=== PATIENT | female | born 1975 | race Caucasian/White ===

== ENCOUNTER 2018-10-20 08:40 | Day surgery (SDC) | payer MEDICARE ==
[2012-10-20 10:16] VITALS: BP 134/87
[2018-10-20] MEDS ORDERED: Depo-Medrol 40 MG/ML IM ONE (08:41)
[2018-10-20] MEDS ORDERED: Marcaine 0.5% SDV 10 ML IJ ONE (08:41)
[2018-10-20] MEDS ORDERED: Xylocaine 1% Vial 30 ML PF IJ ONE (08:41)
[2018-10-20] MEDS ORDERED: DIPRIVAN 200 MG/20 ML IV ONE (08:41)
--- NOTE | 2018-10-20 12:17 | XRAY ---
16 seconds fluoroscopy time in surgery for bilateral greater trochanter injections.
--- NOTE | 2018-10-20 12:27 | XRAY ---
Indication: Bilateral greater trochanter injection. Intraoperative fluoroscopy was provided for approximately 16 seconds. 2 digital spot images submitted for interpretation demonstrates needle tip projecting just lateral to the left and right greater trochanters. Small amount of contrast injected for needle tip placement. Correlate with intraoperative findings/report.
[2018-10-20] MEDS ORDERED: Lactated Ringers 1,000 ML IV ONE (14:45)
== END 2018-10-20 11:40 | disposition home or self-care (01) ==
LOC: SDC-PAIN 08:40
PROVIDERS: ATTEND Psychiatry & Neurology Pain Medicine
DX: M70.61 Trochanteric bursitis, right hip (principal)
CPT/HCPCS: 20610; 73521; 76000; 77002; 82962; J1030; J2001; J2704; Q9966

== ENCOUNTER 2020-04-15 23:08 | Emergency (ER) | payer MEDICARE ==
[2020-04-15] MEDS ORDERED: MORPHINE SULFATE 2 MG INJ IV ONE (23:50)
[2020-04-15] MEDS ORDERED: Zofran 4 MG/2 ML VIAL IV ONE (23:50)
[2020-04-15] MEDS ORDERED: Sodium Chloride 0.9% 1000 ML 1,000 ML IV STA (23:50)
[2020-04-15] MEDS ORDERED: Sodium Chloride 0.9% 1000 ML 1,000 ML ONE (23:56)
[2020-04-15] MEDS ORDERED: Zofran 4 MG/2 ML VIAL ONE (23:56)
[2020-04-15] MEDS ORDERED: MORPHINE SULFATE 2 MG INJ ONE (23:56)
[2020-04-16 00:01] LABS: Absolute Neutrophil Ct (ANC) 5.86 (1.4-6.9); BASOPHIL % 0.5 % (0.0-0.4); Basophil (Absolute #) 0.05 (0-0.4); Eosinophil % 1.6 % (0.00-5.0); Eosinophil (Absolute #) 0.16 (0-0.5); Hematocrit 43.6 % (35-47); Lymphocyte (Absolute #) 3.02 (1.0-4.6); Lymphocytes % 30.9 % (24.0-44.0); Mean Cell Volume 91.8 fl (78-100); Mean Corpuscular Hemoglobin 31.6 pg (26-32); Mean Corpuscular Hgb Concent. 34.4 g/dl (32-36); Mean Platelet Volume 9.8 fl (7.5-11.0); Monocyte (Absolute #) 0.69 (0.0-1.3); Monocytes % 7.1 % (0.0-12.0); Neutrophil % 59.9 % (36.0-66.0); Platelet Count 312 K/mm3 (150-450); Red Blood Count 4.75 M/mm3 (4.1-5.4); Red Cell Distribution Width 12.7 % (11.5-14.0); White Blood Count 9.8 K/mm3 (4.0-10.5)
[2020-04-16 00:15] VITALS: O2SAT 97
[2020-04-16 00:17] LABS: ALBUMIN 4.3 g/dL (3.5-5.0); ALKALINE PHOSPHATASE 136 U/L (38-126); ANION GAP 14.2 MEQ/L (5-15); BLOOD UREA NITROGEN 11 mg/dL (7-17); CHLORIDE 101 mmol/L (98-107); Carbon Dioxide 26 mmol/L (22-30); Creatinine 1 0.55 mg/dL (0.52-1.04); Glucose 258 mg/dL (74-106); LIPASE 73 U/L (23-300); Potassium 4.1 mmol/L (3.5-5.1); SGOT/AST 19 U/L (14-36); SGPT/ALT 16 U/L (0-35); SODIUM 137 mmol/L (137-145); Total Protein 7.4 g/dL (6.3-8.2)
[2020-04-16 00:27] LABS: Appearance CLEAR (CLEAR); Bilirubin NEGATIVE (NEGATIVE); Blood NEGATIVE Ery/ul (0-5); Glucose >=500 mg/dL (NEGATIVE); Ketones TRACE (NEGATIVE); Leukocyte Esterase NEGATIVE (NEGATIVE); Mucus SLIGHT /HPF (NEGATIVE); Nitrite NEGATIVE (NEGATIVE); Protein,Urine Dip NEGATIVE (Negative); Specific Gravity 1.031 (1.005-1.025); Urobilinogen NEGATIVE mg/dL (0-1)
[2020-04-16] MEDS ORDERED: MORPHINE SULFATE 4 MG INJ IV ONE (01:28)
[2020-04-16] MEDS ORDERED: MORPHINE SULFATE 4 MG INJ ONE (01:34)
--- NOTE | 2020-04-16 01:42 | ERPHSYRPT ---
- History of Present Illness Time Seen by Provider: 04/15/20 23:45 Historian: patient Exam Limitations: no limitations Patient Subjective Stated Complaint: pt states that she has had severe abdomen pain for the past 5 days, pt states that she has a long stomach history, pt states that she is unable to have scope due to recent stents placed last year, pt states that the pain has increased each day, pt states that she took pain medication at 1800 tonight Triage Nursing Assessment: pt ambulated into the er, pt is axo x4, pt is hold left side of abdomen, c/o 8/10 pain to ULQ that radiated to left back, c/o nausea, hypoactive bowel sound, abd is soft and tender to ULQ pt is diaphoretic , vitals wnl Physician History: Patient is a 45-year-old female with chronic abdominal pain presents to our ED with left-sided upper abdominal pain that has been ongoing for approximately 5 days. Pain described as an ache that is well localized. Pain worse with palpation pain improved with rest. Pain rated 8 out of 10. No trauma. No nausea or vomiting. No diarrhea. Patient is a smoker. Symptoms are moderate in intensity. Patient voices no other complaints at this time. Timing/Duration: day(s) (5 days ago) Activities at Onset: none Quality: aching Abdominal Pain Onset Location: LUQ Pain Radiation: no radiation Severity of Pain-Max: moderate Severity of Pain-Current: mild Modifying Factors: Improves With: palpation. Worsens With: breathing, eating, exercise, vomiting, position, walking Associated Symptoms: No back, No chest pain, No diaphoresis, No diarrhea, No fatigue, No headache, No heartburn, No neck pain, No rash, No shortness of breath, No syncope, No testicular pain, No vomiting, No weakness Previous symptoms: no prior history Allergies/Adverse Reactions: adhesive Allergy (Severe, Verified 05/13/16 08:16) states adhesive from medication patches clonazepam [From Klonopin] Allergy (Severe, Verified 05/13/16 08:16) tizanidine HCl [From Zanaflex] Adverse Reaction (Verified 05/13/16 08:16) "weird sensation in legs" restless legs Home Medications: Aspirin/Calcium Carbonate/Mag [Aspirin Buffered 325 mg Tab] 325 mg PO DAILY [History] Gabapentin [Neurontin] 800 mg PO TID 07/04/15 [History] Insulin Detemir [Levemir] 100 units SQ HS 07/04/15 [History] Insulin Lispro [Humalog] 30 units SQ AC 07/04/15 [History] Mag Hydrox/Aluminum Hyd/Simeth [Liquid Antacid Suspension] 30 ml PO HS 07/04/15 [History] Nitroglycerin 0.4 mg Tablet [Nitrostat 0.4 MG Tablet] 0.4 mg SL Q5MIN PRN MR X 3 PRN 07/04/15 [History] Omeprazole 40 mg PO DAILY 07/04/15 [History] Ondansetron [Zofran Odt] 4 mg SL Q4HPRN PRN 07/04/15 [History] Rosuvastatin Calcium [Crestor] 40 mg PO HS 07/04/15 [History] dilTIAZem HCL [Diltiazem HCl] 120 mg PO DAILY 07/04/15 [History] Oxycodone HCl/Acetaminophen [Percocet 10-325 mg Tablet] 1 each PO Q6HPRN PRN [History] Carboxymethylcellulose Sodium [Lubricant Eye Drops] 1 drop IO DAILY 05/09/16 [ History] Baclofen 10 mg PO TID 11/25/16 [History] Phenytoin Sod Extended 100 mg* [Dilantin 100 MG] 2 cap PO HS 03/02/17 [ History] Dulaglutide [Trulicity] 0.75 mg SQ WEEKLY 07/09/17 [History] Insulin Degludec [Tresiba Flextouch U-200] 90 unit SQ DAILY 07/09/17 [History] Levothyroxine Sodium 125 mcg PO DAILY 07/09/17 [History] Liraglutide [Victoza 2-Sergo] 1.2 mg SQ DAILY 07/09/17 [History] Amitriptyline HCl [Elavil] 75 mg PO HS 01/18/18 [History] metHOTREXate sodium [Trexall] 10 mg PO WEEKLY 01/18/18 [History] Hx Tetanus, Diphtheria Vaccination/Date Given: Yes (unsure) Hx Influenza Vaccination/Date Given: Yes Hx Pneumococcal Vaccination/Date Given: Yes Travel Risk - International Travel Have you traveled outside of the country in past 3 weeks: No Have you or anyone close to you been diagnosed with or: No Do your reside in a community with a known COVID-19 case?: Yes If Yes where:: [place] - Coronavirus Screening Has patient experienced Coronavirus symptoms: No - Review of Systems Constitutional: No Symptoms, No Fever, No Chills Eyes: No Symptoms Ears, Nose, & Throat: No Symptoms Respiratory: No Symptoms, No Cough, No Dyspnea Cardiac: No Symptoms, No Chest Pain, No Edema, No Syncope Abdominal/Gastrointestinal: No Symptoms, No Abdominal Pain, No Nausea, No Vomiting, No Diarrhea Genitourinary Symptoms: No Symptoms, No Dysuria Musculoskeletal: No Symptoms, No Back Pain, No Neck Pain Skin: No Symptoms, No Rash Neurological: No Symptoms, No Dizziness, No Focal Weakness, No Sensory Changes Psychological: No Symptoms Endocrine: No Symptoms Hematologic/Lymphatic: No Symptoms Immunological/Allergic: No Symptoms All Other Systems: Reviewed and Negative - Past Medical History Pertinent Past Medical History: Yes Neurological History: Peripheral Neuropathy ENT History: No Pertinent History Cardiac History: Angina, Coronary Artery Disease, High Cholesterol, Hypertension , Myocardial Infarction ([place]) Respiratory History: Bronchitis Endocrine Medical History: Diabetes Type II, Hypothyroidism Musculoskeletal History: Degenerative Disk Disease, Fibromyalgia GI Medical History: GERD, Hernia, Irritable Bowel, Polyps, Other History: No Pertinent History Psycho-Social History: Anxiety, Depression Female Reproductive Disorders: Other Other Medical History: LUPUS PCOS Montejo's esophagus, kyra - Past Surgical History Past Surgical History: Yes Neuro Surgical History: Other Cardiac: Cardiac Catheterization, Cardiac Stent Respiratory: No Pertinent History Gastrointestinal: Cholecystectomy Genitourinary: No Pertinent History Musculoskeletal: Other Female Surgical History: Section, Hysterectomy, Tubal Ligation, Other Other Surgical History: disc fusion c6-c7. left knee arthroscopy. lymph node biopsy. polyps removed from colon. +HPV. lumbar laminectomy. kyra dx - Social History Smoking Status: Current every day smoker How long have you smoked: 23yrs Exposure to second hand smoke: Yes Drug Use: none Patient Lives Alone: No - Female History Hx Now: No - Nursing Vital Signs Nursing Vital Signs: Initial Vital Signs Temperature 97.8 F 04/15/20 23:42 Pulse Rate 101 H 04/15/20 23:42 Respiratory Rate 22 04/15/20 23:42 Blood Pressure 124/91 04/15/20 23:42 O2 Sat by Pulse Oximetry 98 04/15/20 23:42 Pain Scale Pain Intensity 3 - Physical Exam General Appearance: no apparent distress, alert Eye Exam: PERRL/EOMI, eyes nml inspection Ears, Nose, Throat Exam: normal ENT inspection, pharynx normal, moist mucous membranes Neck Exam: normal inspection, non-tender, supple, full range of motion Respiratory Exam: normal breath sounds, lungs clear, No respiratory distress Cardiovascular Exam: regular rate/rhythm, normal heart sounds Gastrointestinal/Abdomen Exam: soft, tenderness, other (Mild tenderness to palpation left upper quadrant. Overlying soft tissue intact.), No mass Back Exam: normal inspection, normal range of motion, No CVA tenderness, No vertebral tenderness Extremity Exam: normal inspection, normal range of motion, pelvis stable Neurologic Exam: alert, oriented x 3, cooperative, normal mood/affect, nml cerebellar function, sensation nml, No motor deficits Skin Exam: normal color, warm, dry SpO2 Interpretation: normal SpO2: 97 O2 Delivery: Room Air - Course Nursing assessment & vital signs reviewed: Yes EKG Interpreted by Me: RATE (85), Sinus Rhythm, NORMAL AXIS, NORMAL INTERVALS - CT Exams Abdomen/Pelvis CT Interpretation: Tele-radiologist Report (Reveals Devi's lobe, atheromatous changes involving the wall of the abdominal aorta and right iliac arteries. There is normal. Adrenals appear normal. No hydronephrosis or nephrolithiasis. Food in stomach. No abnormal bowel wall thickening.) Ordered Tests: Active Orders 24 hr Category Date Time Status EKG-ER Only STAT Care 04/16/20 01:32 Active IV Insertion STAT Care 04/15/20 23:50 Active Isolation, Initiate & Maintain Q4H Care 04/16/20 00:12 Active ABDOMEN AND PELVIS W CONTRAST [CT] Stat Exams 04/16/20 12:15 Taken CBC W DIFF Stat Lab 04/15/20 23:45 Completed CMP Stat Lab 04/15/20 23:45 Completed HCG,QUALITATIVE URINE Stat Lab 04/16/20 00:01 Completed LIPASE Stat Lab 04/15/20 23:45 Completed TROPONIN Q3H Lab 04/16/20 01:45 Ordered TROPONIN Q3H Lab 04/16/20 04:45 Ordered TROPONIN Q3H Lab 04/16/20 07:45 Ordered TROPONIN Q3H Lab 04/16/20 10:45 Ordered TROPONIN Q3H Lab 04/16/20 13:45 Ordered UA W/RFX UR CULTURE Stat Lab 04/16/20 00:01 Completed Medication Summary Discontinued Medications Generic Name Dose Route Start Last Admin Trade Name Matheus PRN Reason Stop Dose Admin Sodium Chloride 1,000 mls @ 999 mls/hr 04/15/20 23:50 04/16/20 01:12 Sodium Chloride 0.9% 1000 Ml IV 04/16/20 00:50 Infused .Q1H1M STA Infusion Sodium Chloride Confirm 04/15/20 23:56 Sodium Chloride 0.9% 1000 Ml Administered 04/15/20 23:57 Dose 1,000 mls @ ud .ROUTE .STK-MED ONE Morphine Sulfate 2 mg 04/15/20 23:50 04/16/20 00:05 Morphine Sulfate 2 Mg Inj IV 04/15/20 23:51 2 mg STAT ONE Administration Morphine Sulfate Confirm 04/15/20 23:56 Morphine Sulfate 2 Mg Inj Administered 04/15/20 23:57 Dose 2 mg .ROUTE .STK-MED ONE Morphine Sulfate 4 mg 04/16/20 01:28 04/16/20 01:35 Morphine Sulfate 4 Mg Inj IV 04/16/20 01:29 4 mg STAT ONE Administration Morphine Sulfate Confirm 04/16/20 01:34 Morphine Sulfate 4 Mg Inj Administered 04/16/20 01:35 Dose 4 mg .ROUTE .STK-MED ONE Ondansetron HCl 4 mg 04/15/20 23:50 04/16/20 00:05 Zofran 4 Mg/2 Ml Vial IV 04/15/20 23:51 4 mg STAT ONE Administration Ondansetron HCl Confirm 04/15/20 23:56 Zofran 4 Mg/2 Ml Vial Administered 04/15/20 23:57 Dose 4 mg .ROUTE .STK-MED ONE Lab/Rad Data: Laboratory Result Diagrams 04/15/20 23:45 04/15/20 23:45 Laboratory Results 04/16/20 04/16/20 04/16/20 Range/Units 01:45 00:01 00:01 WBC (4.0-10.5) K/mm3 RBC (4.1-5.4) M/mm3 Hgb (12.0-16.0) gm/dl Hct (35-47) % MCV (78-100) fl MCH (26-32) pg MCHC (32-36) g/dl RDW (11.5-14.0) % Plt Count (150-450) K/mm3 MPV (7.5-11.0) fl Gran % (36.0-66.0) % Eos # (Auto) (0-0.5) Absolute Lymphs (auto) (1.0-4.6) Absolute Monos (auto) (0.0-1.3) Lymphocytes % (24.0-44.0) % Monocytes % (0.0-12.0) % Eosinophils % (0.00-5.0) % Basophils % (0.0-0.4) % Absolute Granulocytes (1.4-6.9) Basophils # (0-0.4) Sodium (137-145) mmol/L Potassium (3.5-5.1) mmol/L Chloride (98-107) mmol/L Carbon Dioxide (22-30) mmol/L Anion Gap (5-15) MEQ/L BUN (7-17) mg/dL Creatinine (0.52-1.04) mg/dL Estimated GFR ML/MIN Glucose (74-106) mg/dL Calcium (8.4-10.2) mg/dL Total Bilirubin (0.2-1.3) mg/dL AST (14-36) U/L ALT (0-35) U/L Alkaline Phosphatase (38-126) U/L Troponin I < 0.012 (0.000-0.034) ng/mL Serum Total Protein (6.3-8.2) g/dL Albumin (3.5-5.0) g/dL Lipase (23-300) U/L Urine Color YELLOW (YELLOW) Urine Appearance CLEAR (CLEAR) Urine pH 6.0 (5-6) Ur Specific Thurman 1.031 (1.005-1.025) Urine Protein NEGATIVE (Negative) Urine Ketones TRACE (NEGATIVE) Urine Blood NEGATIVE (0-5) Jeronimo/ul Urine Nitrite NEGATIVE (NEGATIVE) Urine Bilirubin NEGATIVE (NEGATIVE) Urine Urobilinogen NEGATIVE (0-1) mg/dL Ur Leukocyte Esterase NEGATIVE (NEGATIVE) Urine WBC (Auto) 3-5 (0-5) /HPF Urine RBC (Auto) NONE (0-2) /HPF U Epithel Cells (Auto) NONE (FEW) /HPF Urine Bacteria (Auto) NONE (NEGATIVE) /HPF Urine Mucus (Auto) SLIGHT (NEGATIVE) /HPF Urine Culture Reflexed NO (NO) Urine Glucose >=500 (NEGATIVE) mg/dL Urine HCG, Qual NEGATIVE (Negative) 04/15/20 04/15/20 Range/Units 23:45 23:45 WBC 9.8 (4.0-10.5) K/mm3 RBC 4.75 (4.1-5.4) M/mm3 Hgb 15.0 (12.0-16.0) gm/dl Hct 43.6 (35-47) % MCV 91.8 (78-100) fl MCH 31.6 (26-32) pg MCHC 34.4 (32-36) g/dl RDW 12.7 (11.5-14.0) % Plt Count 312 (150-450) K/mm3 MPV 9.8 (7.5-11.0) fl Gran % 59.9 (36.0-66.0) % Eos # (Auto) 0.16 (0-0.5) Absolute Lymphs (auto) 3.02 (1.0-4.6) Absolute Monos (auto) 0.69 (0.0-1.3) Lymphocytes % 30.9 (24.0-44.0) % Monocytes % 7.1 (0.0-12.0) % Eosinophils % 1.6 (0.00-5.0) % Basophils % 0.5 (0.0-0.4) % Absolute Granulocytes 5.86 (1.4-6.9) Basophils # 0.05 (0-0.4) Sodium 137 (137-145) mmol/L Potassium 4.1 (3.5-5.1) mmol/L Chloride 101 (98-107) mmol/L Carbon Dioxide 26 (22-30) mmol/L Anion Gap 14.2 (5-15) MEQ/L BUN 11 (7-17) mg/dL Creatinine 0.55 (0.52-1.04) mg/dL Estimated GFR > 60.0 ML/MIN Glucose 258 H (74-106) mg/dL Calcium 10.0 (8.4-10.2) mg/dL Total Bilirubin 0.20 (0.2-1.3) mg/dL AST 19 (14-36) U/L ALT 16 (0-35) U/L Alkaline Phosphatase 136 H (38-126) U/L Troponin I (0.000-0.034) ng/mL Serum Total Protein 7.4 (6.3-8.2) g/dL Albumin 4.3 (3.5-5.0) g/dL Lipase 73 (23-300) U/L Urine Color (YELLOW) Urine Appearance (CLEAR) Urine pH (5-6) Ur Specific Thurman (1.005-1.025) Urine Protein (Negative) Urine Ketones (NEGATIVE) Urine Blood (0-5) Jeronimo/ul Urine Nitrite (NEGATIVE) Urine Bilirubin (NEGATIVE) Urine Urobilinogen (0-1) mg/dL Ur Leukocyte Esterase (NEGATIVE) Urine WBC (Auto) (0-5) /HPF Urine RBC (Auto) (0-2) /HPF U Epithel Cells (Auto) (FEW) /HPF Urine Bacteria (Auto) (NEGATIVE) /HPF Urine Mucus (Auto) (NEGATIVE) /HPF Urine Culture Reflexed (NO) Urine Glucose (NEGATIVE) mg/dL Urine HCG, Qual (Negative) - Progress Progress: improved Progress Note: 04/16/20 02:22 Patient reassessed. She feels much better. Pain significantly improved. Work- up essentially negative. Troponin negative. EKG negative. Patient will follow -up with her GI doctor within 48 hours for evaluation. Counseled pt/family regarding: lab results, diagnosis, need for follow-up, rad results, smoking cessation - Departure Departure Disposition: Home Clinical Impression: Abdominal pain, Atheroma, Hyperglycemia, Glucosuria, Elevated alkaline phosphatase level Condition: Stable Critical Care Time: No Referrals: SRIDEVI HART [Primary Care Provider] - Additional Instructions: Discharge/Care Plan HATTIE BOWLING was seen on 04/16/20 in the Emergency Room. The patient was counseled regarding Diagnosis,Lab results, Imaging studies, need for follow up and when to return to the Emergency Room. Prescriptions given: Discharge Note I have spoken with the patient and/or caregivers. I have explained the patient' s condition, diagnosis and treatment plan based on the information available to me at this time. I have answered the patient's and/or caregiver's questions and addressed any concerns. The patient and/or caregivers have as good understanding of the patient's diagnosis, condition and treatment plan as can be expected at this point. The vital signs have been stable. The patient's condition is stable and appropriate for discharge from the emergency department. The patient will pursue further outpatient evaluation with the primary care physician or other designated or consulting physician as outlined in the discharge instructions. The patient and/or caregivers are agreeable to this plan of care and follow-up instructions have been explained in detail. The patient and/or caregivers have received these instruction. The patient/and or caregivers are aware that any significant change in condition or worsening of symptoms should prompt an immediate return to this or the closest emergency department or call 911.
[2020-04-16 02:08] VITALS: BP 119/70; PULSE 83
--- NOTE | 2020-04-16 09:22 | XRAY ---
Indication: Severe abdominal pain. Nausea. Chronic pancreatitis. Multiple contiguous axial images obtained through the abdomen and pelvis using 80 cc Isovue 370 contrast only. Comparison: April 10, 2017. Lung bases remain clear again with tiny right base calcified granuloma. Heart is not enlarged. Noncontrasted stomach and bowel loops remain nonobstructed. Normal appendix. There is again mild diffuse scattered colonic fecal debris throughout, less than before. Stable cholecystectomy and hysterectomy. No free fluid/air. Liver remains enlarged today measuring 23.5 cm. Remaining liver, pancreas, spleen, adrenal glands, kidneys, ureters, and bladder appear unremarkable. Stable mild aortoiliac calcifications again without AAA or pathologic retroperitoneal lymphadenopathy. Osseous structures intact again with minimal degenerative changes throughout the spine. No ventral or inguinal hernias. Impression: 1. Again mild fecal stasis without obstruction, hepatomegaly, and right lung base calcified granuloma. 2. Remaining CT abdomen/pelvis with contrast exam is negative. Comment: Preliminary interpretation was made by [facility]. No critical discrepancy.
== END 2020-04-16 02:38 | disposition home or self-care (01) ==
LOC: ED 23:08
DX: R10.9 Unspecified abdominal pain (principal); I70.90 Unspecified atherosclerosis; R73.9 Hyperglycemia, unspecified; E74.39 Other disorders of intestinal carbohydrate absorption; R74.8 Abnormal levels of other serum enzymes; I25.10 Atherosclerotic heart disease of native coronary artery without angina pectoris; E78.00 Pure hypercholesterolemia, unspecified; I10 Essential (primary) hypertension; I25.2 Old myocardial infarction; E03.9 Hypothyroidism, unspecified; E11.9 Type 2 diabetes mellitus without complications; M79.7 Fibromyalgia; K21.9 Gastro-esophageal reflux disease without esophagitis; F41.9 Anxiety disorder, unspecified; F32.9 Major depressive disorder, single episode, unspecified; Z79.899 Other long term (current) drug therapy
CPT/HCPCS: 36000; 36415; 74177; 80053; 81001; 83690; 84484; 84703; 85025; 93005; 96360; 96374; 96375; 96376; 99284; J2270; J2405

== ENCOUNTER 2020-07-17 01:26 | Emergency (ER) | payer MEDICARE ==
[2020-07-17] MEDS ORDERED: MORPHINE SULFATE 4 MG INJ IV ONE (01:41)
[2020-07-17] MEDS ORDERED: Zofran 4 MG/2 ML VIAL IV ONE (01:41)
--- NOTE | 2020-07-17 01:55 | ERPHSYRPT ---
- History of Present Illness Time Seen by Provider: 07/17/20 01:30 Historian: patient Exam Limitations: no limitations Physician History: 45 years old female with complicated medical history including lupus, diabetes mellitus, congestive heart failure, COPD, chronic kidney disease presented in the ER with chief complaint of bilateral upper flank pain more on the right side moderate to severe intensity, sharp in nature for the last 2 days with progressive worsening. Associated nausea but no vomiting. Patient denies any significant aggravating or relieving factors. Patient reported associated decreased urine output for the last 2 days and also weight gain of 9 pounds in the last few days. She has a minimal shortness of breath out of normal but no chest tightness or pressure. No fever or chills reported. Denies any cough. Patient is worried about having CHF exacerbation/kidney failure as she had a similar symptoms in the past with them. Timing/Duration: day(s) (2), gradual onset, worse Activities at Onset: rest Quality: sharpness Abdominal Pain Onset Location: flank Pain Radiation: no radiation Severity of Pain-Max: moderate Severity of Pain-Current: moderate Modifying Factors: Improves With: nothing Associated Symptoms: back, nausea, No vomiting Previous symptoms: no prior history Allergies/Adverse Reactions: adhesive Allergy (Severe, Verified 07/17/20 01:52) states adhesive from medication patches clonazepam [From Klonopin] Allergy (Severe, Verified 07/17/20 01:52) tizanidine HCl [From Zanaflex] Adverse Reaction (Verified 07/17/20 01:52) "weird sensation in legs" restless legs Home Medications: Aspirin/Calcium Carbonate/Mag [Aspirin Buffered 325 mg Tab] 325 mg PO DAILY 07/04/15 [History] Gabapentin [Neurontin] 600 mg PO TID 07/04/15 [History] Insulin Lispro [Humalog] 35 units SQ AC 07/04/15 [History] Nitroglycerin 0.4 mg Tablet [Nitrostat 0.4 MG Tablet] 0.4 mg SL Q5MIN PRN MR X 3 PRN 07/04/15 [History] Omeprazole 40 mg PO DAILY 07/04/15 [History] Ondansetron [Zofran Odt] 4 mg SL Q4HPRN PRN 07/04/15 [History] Rosuvastatin Calcium [Crestor] 40 mg PO HS 07/04/15 [History] dilTIAZem HCL [Diltiazem HCl] 120 mg PO DAILY 07/04/15 [History] Oxycodone HCl/Acetaminophen [Percocet 10-325 mg Tablet] 1 each PO Q6HPRN PRN 05/05/16 [History] Carboxymethylcellulose Sodium [Lubricant Eye Drops] 1 drop IO DAILY 05/09/16 [History] Baclofen 10 mg PO TID 11/25/16 [History] Phenytoin Sod Extended 100 mg* [Dilantin 100 MG] 2 cap PO HS 03/02/17 [History] Insulin Degludec [Tresiba Flextouch U-200] 72 unit SQ DAILY 07/09/17 [History] Levothyroxine Sodium 125 mcg PO DAILY 07/09/17 [History] Atorvastatin Calcium 40 mg PO 07/17/20 [History] Clopidogrel Bisulfate [Clopidogrel] 75 mg PO DAILY 07/17/20 [History] Fluoxetine HCl 20 mg PO DAILY 07/17/20 [History] Isosorbide Mononitrate 30 mg [Imdur 30 MG] 30 mg PO DAILY 07/17/20 [History] Losartan Potassium 25 mg PO DAILY 07/17/20 [History] Metoprolol Succinate [Toprol Xl] 25 mg PO DAILY 07/17/20 [History] Phenytoin Sodium Extended 100 mg PO DAILY 07/17/20 [History] levETIRAcetam [Levetiracetam] 250 mg PO BID 07/17/20 [History] Hx Tetanus, Diphtheria Vaccination/Date Given: Yes (unsure) Hx Influenza Vaccination/Date Given: Yes Hx Pneumococcal Vaccination/Date Given: Yes - Review of Systems Constitutional: Fatigue, Weakness Eyes: No Symptoms Ears, Nose, & Throat: No Symptoms Respiratory: Dyspnea Cardiac: No Symptoms Abdominal/Gastrointestinal: Abdominal Pain, Nausea Genitourinary Symptoms: Hesitancy Musculoskeletal: Back Pain Skin: No Symptoms Neurological: No Symptoms Psychological: No Symptoms Endocrine: No Symptoms Hematologic/Lymphatic: No Symptoms Immunological/Allergic: No Symptoms - Past Medical History Pertinent Past Medical History: Yes Neurological History: Peripheral Neuropathy ENT History: No Pertinent History Cardiac History: Angina, Coronary Artery Disease, High Cholesterol, Hyper tension, Myocardial Infarction ([place]) Respiratory History: Bronchitis Endocrine Medical History: Diabetes Type II, Hypothyroidism Musculoskeletal History: Degenerative Disk Disease, Fibromyalgia GI Medical History: GERD, Hernia, Irritable Bowel, Polyps, Other History: No Pertinent History Psycho-Social History: Anxiety, Depression Female Reproductive Disorders: Other Other Medical History: LUPUS PCOS Montejo's esophagus, kyra - Past Surgical History Past Surgical History: Yes Neuro Surgical History: Other Cardiac: Cardiac Catheterization, Cardiac Stent Respiratory: No Pertinent History Gastrointestinal: Cholecystectomy Genitourinary: No Pertinent History Musculoskeletal: Other Female Surgical History: Section, Hysterectomy, Tubal Ligation, Other Other Surgical History: disc fusion c6-c7. left knee arthroscopy. lymph node biopsy. polyps removed from colon. +HPV. lumbar laminectomy. kyra dx - Social History Smoking Status: Current every day smoker How long have you smoked: 23yrs Exposure to second hand smoke: Yes Drug Use: none Patient Lives Alone: No - Female History Hx Now: (unkn) - Nursing Vital Signs Nursing Vital Signs: Initial Vital Signs Temperature 98.5 F 07/17/20 01:45 Pulse Rate 91 H 07/17/20 01:45 Respiratory Rate 22 07/17/20 01:45 Blood Pressure 141/82 07/17/20 01:45 O2 Sat by Pulse Oximetry 95 07/17/20 01:45 Pain Scale Pain Intensity 0 - Physical Exam General Appearance: no apparent distress Eye Exam: PERRL/EOMI, eyes nml inspection Ears, Nose, Throat Exam: normal ENT inspection Neck Exam: normal inspection, non-tender, supple, full range of motion Respiratory Exam: normal breath sounds, lungs clear Cardiovascular Exam: regular rate/rhythm, normal heart sounds, edema (Bilateral 1+) Gastrointestinal/Abdomen Exam: soft, normal bowel sounds, tenderness (Bilateral flank with positive CVA tenderness) Back Exam: normal inspection, CVA tenderness Extremity Exam: normal inspection Neurologic Exam: alert, oriented x 3, cooperative Skin Exam: normal color SpO2 Interpretation: normal - Course Nursing assessment & vital signs reviewed: Yes EKG Interpreted by Me: RATE (93), Sinus Rhythm, NORMAL AXIS, NORMAL INTERVALS, Non-specific ST Changes Ordered Tests: Medication Summary Discontinued Medications Generic Name Dose Route Start Last Admin Trade Name Freq PRN Reason Stop Dose Admin Furosemide 40 mg 07/17/20 04:43 07/17/20 04:54 Lasix 40 Mg/4 Ml IV 07/17/20 04:44 40 mg STAT ONE Administration Furosemide Confirm 07/17/20 04:53 Lasix 40 Mg/4 Ml Administered 07/17/20 04:54 Dose 40 mg .ROUTE .STK-MED ONE Morphine Sulfate 4 mg 07/17/20 01:41 07/17/20 01:57 Morphine Sulfate 4 Mg Inj IV 07/17/20 01:42 4 mg STAT ONE Administration Morphine Sulfate Confirm 07/17/20 01:56 Morphine Sulfate 4 Mg Inj Administered 07/17/20 01:57 Dose 4 mg .ROUTE .STK-MED ONE Ondansetron HCl 4 mg 07/17/20 01:41 07/17/20 01:57 Zofran 4 Mg/2 Ml Vial IV 07/17/20 01:42 4 mg STAT ONE Administration Ondansetron HCl Confirm 07/17/20 01:56 Zofran 4 Mg/2 Ml Vial Administered 07/17/20 01:57 Dose 4 mg .ROUTE .STK-MED ONE Lab/Rad Data: Laboratory Result Diagrams 07/17/20 01:45 07/17/20 01:45 Laboratory Results 07/17/20 07/17/20 07/17/20 Range/Units 01:45 01:45 01:45 WBC (4.0-10.5) K/mm3 RBC (4.1-5.4) M/mm3 Hgb (12.0-16.0) gm/dl Hct (35-47) % MCV (78-100) fl MCH (26-32) pg MCHC (32-36) g/dl RDW (11.5-14.0) % Plt Count (150-450) K/mm3 MPV (7.5-11.0) fl Gran % (36.0-66.0) % Eos # (Auto) (0-0.5) Absolute Lymphs (auto) (1.0-4.6) Absolute Monos (auto) (0.0-1.3) Lymphocytes % (24.0-44.0) % Monocytes % (0.0-12.0) % Eosinophils % (0.00-5.0) % Basophils % (0.0-0.4) % Absolute Granulocytes (1.4-6.9) Basophils # (0-0.4) Sodium 134 L (137-145) mmol/L Potassium 3.9 (3.5-5.1) mmol/L Chloride 101 (98-107) mmol/L Carbon Dioxide 27 (22-30) mmol/L Anion Gap 9.9 (5-15) MEQ/L BUN 8 (7-17) mg/dL Creatinine 0.49 L (0.52-1.04) mg/dL Estimated GFR > 60.0 ML/MIN Glucose 271 H (74-106) mg/dL Calcium 9.4 (8.4-10.2) mg/dL Magnesium 1.7 (1.6-2.3) mg/dL Total Bilirubin 0.30 (0.2-1.3) mg/dL AST 18 (14-36) U/L ALT 15 (0-35) U/L Alkaline Phosphatase 142 H (38-126) U/L Troponin I < 0.012 (0.000-0.034) ng/mL NT-Pro-B Natriuret Pep 243 (0-450) pg/mL Serum Total Protein 7.0 (6.3-8.2) g/dL Albumin 4.0 (3.5-5.0) g/dL Lipase 76 (23-300) U/L Urine Color STRAW (YELLOW) Urine Appearance CLEAR (CLEAR) Urine pH 6.0 (5-6) Ur Specific [place] 1.010 (1.005-1.025) Urine Protein NEGATIVE (Negative) Urine Ketones NEGATIVE (NEGATIVE) Urine Blood NEGATIVE (0-5) Jeronimo/ul Urine Nitrite NEGATIVE (NEGATIVE) Urine Bilirubin NEGATIVE (NEGATIVE) Urine Urobilinogen NEGATIVE (0-1) mg/dL Ur Leukocyte Esterase NEGATIVE (NEGATIVE) Urine WBC (Auto) NONE (0-5) /HPF Urine RBC (Auto) NONE (0-2) /HPF U Epithel Cells (Auto) NONE (FEW) /HPF Urine Bacteria (Auto) NONE (NEGATIVE) /HPF Urine Culture Reflexed NO (NO) Urine Glucose >=500 (NEGATIVE) mg/dL 07/17/20 Range/Units 01:45 WBC 12.1 H (4.0-10.5) K/mm3 RBC 3.98 L (4.1-5.4) M/mm3 Hgb 12.4 (12.0-16.0) gm/dl Hct 38.0 (35-47) % MCV 95.5 (78-100) fl MCH 31.2 (26-32) pg MCHC 32.6 (32-36) g/dl RDW 12.7 (11.5-14.0) % Plt Count 285 (150-450) K/mm3 MPV 10.0 (7.5-11.0) fl Gran % 67.4 H (36.0-66.0) % Eos # (Auto) 0.17 (0-0.5) Absolute Lymphs (auto) 2.87 (1.0-4.6) Absolute Monos (auto) 0.86 (0.0-1.3) Lymphocytes % 23.7 L (24.0-44.0) % Monocytes % 7.1 (0.0-12.0) % Eosinophils % 1.4 (0.00-5.0) % Basophils % 0.4 (0.0-0.4) % Absolute Granulocytes 8.15 H (1.4-6.9) Basophils # 0.05 (0-0.4) Sodium (137-145) mmol/L Potassium (3.5-5.1) mmol/L Chloride (98-107) mmol/L Carbon Dioxide (22-30) mmol/L Anion Gap (5-15) MEQ/L BUN (7-17) mg/dL Creatinine (0.52-1.04) mg/dL Estimated GFR ML/MIN Glucose (74-106) mg/dL Calcium (8.4-10.2) mg/dL Magnesium (1.6-2.3) mg/dL Total Bilirubin (0.2-1.3) mg/dL AST (14-36) U/L ALT (0-35) U/L Alkaline Phosphatase (38-126) U/L Troponin I (0.000-0.034) ng/mL NT-Pro-B Natriuret Pep (0-450) pg/mL Serum Total Protein (6.3-8.2) g/dL Albumin (3.5-5.0) g/dL Lipase (23-300) U/L Urine Color (YELLOW) Urine Appearance (CLEAR) Urine pH (5-6) Ur Specific [place] (1.005-1.025) Urine Protein (Negative) Urine Ketones (NEGATIVE) Urine Blood (0-5) Jeronimo/ul Urine Nitrite (NEGATIVE) Urine Bilirubin (NEGATIVE) Urine Urobilinogen (0-1) mg/dL Ur Leukocyte Esterase (NEGATIVE) Urine WBC (Auto) (0-5) /HPF Urine RBC (Auto) (0-2) /HPF U Epithel Cells (Auto) (FEW) /HPF Urine Bacteria (Auto) (NEGATIVE) /HPF Urine Culture Reflexed (NO) Urine Glucose (NEGATIVE) mg/dL - Progress Progress: improved, re-examined Progress Note: 45 years old is evaluated for bilateral flank pain and lower extremity swelling, broad work-up is done including chest x-ray, CT abdomen pelvis with no acute findings. EKG did not show acute ST elevations. Has normal troponin and BNP. Patient does have some swelling in lower extremity and given a dose of Lasix IV in here. She is given IV morphine and Zofran, on reevaluation feeling better. No acute electrolyte abnormality noticed. Patient discussed with Dr. Solares, agreed with short course of Lasix orally to go home and outpatient follow-up. Discussed signs symptoms of worsening needing return to ER which patient seems understanding. Stable for discharge. Discussed with Dr.: Leigh Will see patient in: office Counseled pt/family regarding: lab results, diagnosis, need for follow-up, rad results - Departure Departure Disposition: Home Clinical Impression: Flank pain Edema Qualifiers: Edema type: unspecified Qualified Code(s): R60.9 - Edema, unspecified Condition: Stable Critical Care Time: No Referrals: SRIDEVI SOLARES [Primary Care Provider] - Follow Up with PCP/3 days Instructions: Dependent Edema (DC), Flank Pain Additional Instructions: Take Lasix for next 5 days. Follow-up with your primary care for reevaluation. Return to ER for any worsening. Take Tylenol as needed. Prescriptions: Furosemide 20 mg [Lasix 20 mg] 20 mg PO DAILY #5 tablet
[2020-07-17] MEDS ORDERED: MORPHINE SULFATE 4 MG INJ ONE (01:56)
[2020-07-17] MEDS ORDERED: Zofran 4 MG/2 ML VIAL ONE (01:56)
[2020-07-17 02:07] LABS: Absolute Neutrophil Ct (ANC) 8.15 (1.4-6.9); BASOPHIL % 0.4 % (0.0-0.4); Basophil (Absolute #) 0.05 (0-0.4); Eosinophil % 1.4 % (0.00-5.0); Eosinophil (Absolute #) 0.17 (0-0.5); Hemoglobin 12.4 gm/dl (12.0-16.0); Lymphocyte (Absolute #) 2.87 (1.0-4.6); Lymphocytes % 23.7 % (24.0-44.0); Mean Cell Volume 95.5 fl (78-100); Mean Corpuscular Hemoglobin 31.2 pg (26-32); Mean Corpuscular Hgb Concent. 32.6 g/dl (32-36); Monocyte (Absolute #) 0.86 (0.0-1.3); Monocytes % 7.1 % (0.0-12.0); Neutrophil % 67.4 % (36.0-66.0); Platelet Count 285 K/mm3 (150-450); Red Blood Count 3.98 M/mm3 (4.1-5.4); Red Cell Distribution Width 12.7 % (11.5-14.0); White Blood Count 12.1 K/mm3 (4.0-10.5)
[2020-07-17 02:17] LABS: Appearance CLEAR (CLEAR); Bilirubin NEGATIVE (NEGATIVE); Blood NEGATIVE Ery/ul (0-5); Glucose >=500 mg/dL (NEGATIVE); Ketones NEGATIVE (NEGATIVE); Leukocyte Esterase NEGATIVE (NEGATIVE); Nitrite NEGATIVE (NEGATIVE); Protein,Urine Dip NEGATIVE (Negative); Urobilinogen NEGATIVE mg/dL (0-1)
[2020-07-17 02:27] LABS: ALKALINE PHOSPHATASE 142 U/L (38-126); ANION GAP 9.9 MEQ/L (5-15); BLOOD UREA NITROGEN 8 mg/dL (7-17); CHLORIDE 101 mmol/L (98-107); Calcium 9.4 mg/dL (8.4-10.2); Carbon Dioxide 27 mmol/L (22-30); Creatinine 1 0.49 mg/dL (0.52-1.04); EST GLOMERULAR FILTRATION RATE > 60.0 ML/MIN; Glucose 271 mg/dL (74-106); LIPASE 76 U/L (23-300); MAGNESIUM 1.7 mg/dL (1.6-2.3); NT PRO BNP 243 pg/mL (0-450); Potassium 3.9 mmol/L (3.5-5.1); SGOT/AST 18 U/L (14-36); SGPT/ALT 15 U/L (0-35); SODIUM 134 mmol/L (137-145)
[2020-07-17] MEDS ORDERED: Lasix 40 MG/4 ML IV ONE (04:43)
[2020-07-17] MEDS ORDERED: Lasix 40 MG/4 ML ONE (04:53)
[2020-07-17 05:36] VITALS: BP 120/75; PULSE 85; O2SAT 96
--- NOTE | 2020-07-17 09:06 | XRAY ---
Indication: Flank pain, right greater than left 4 days. Nausea. Elevated WBC. Multiple contiguous axial images obtained through the abdomen and pelvis without contrast using renal stone protocol. Comparison: April 16, 2020. Lung bases again demonstrates tiny right base calcified granuloma. No infiltrate or effusion. Heart is not enlarged. No renal calculus or evidence for obstructive uropathy in either system. Stomach is distended with food. Noncontrasted stomach and bowel loops remain nonobstructed. Normal air-filled appendix. Again mild diffuse scattered colonic fecal debris throughout . Stable cholecystectomy, hysterectomy, and 24 cm hepatomegaly. No free fluid/air. Remaining liver, pancreas, spleen, adrenal glands, kidneys, ureters, and bladder are unremarkable for noncontrast exam. Stable mild aortoiliac calcifications without AAA. Impression: 1. Negative renal calculus or evidence for obstructive uropathy. 2. Again incidental fecal stasis and hepatomegaly. 3. Remaining CT abdomen/pelvis without contrast exam is negative. Comment: Preliminary interpretation was made by [facility]. No critical discrepancy.
--- NOTE | 2020-07-17 09:08 | XRAY ---
Indication: CHF. Comparison: February 23, 2020. Portable chest again demonstrates normal heart and lungs. Bony thorax intact again with lower cervical fusion hardware. No new/acute findings.
== END 2020-07-17 05:37 | disposition home or self-care (01) ==
LOC: ED 01:26
DX: R60.9 Edema, unspecified (principal)
CPT/HCPCS: 36000; 36415; 71045; 74176; 80053; 81001; 83690; 83735; 83880; 84484; 85025; 93005; 93041; 96374; 96375; 99284; J1940; J2270; J2405

== ENCOUNTER 2021-11-11 21:18 | Observation (INO) | payer MEDICARE ==
--- NOTE | 2021-11-11 21:23 | ERPHSYRPT ---
- History of Present Illness Time Seen by Provider: 11/11/21 21:23 Source: patient Exam Limitations: no limitations Physician History: This is a 46-year-old white female patient of Dr. Med Marti, formula mixer Dr. Marinelli, and pain specialist Dr. Hinson who has multiple medical problems. She complains of crampy pain from head down to her waist that is generalized in this area for 2 months. She is also diaphoretic. She does see a neurologist. She states she is taking Keppra and Dilantin. This morning, she felt as though the pain was getting worse. Patient has coronary artery disease with cardiac stent in place, elevated cholesterol, lupus, diabetes, CHF, COPD, gastroesophageal reflux disease, Kyra's thyroiditis and chronic kidney disease. She did not fall or hit her head. When asked what changed and made her come in at 10:00 at night instead of in the morning when she was experiencing worsening of pain she stated she felt she could handle it. I explained to her that we will run several test to rule in or rule out emergency issues and if there are no emergency issues, the patient will be referred back to her pain specialist and neurologist and primary care physician for further management and work-up. Timing/Duration: other (2 months) Severity: moderate Associated Symptoms: weakness, other Allergies/Adverse Reactions: adhesive Allergy (Severe, Verified 11/11/21 22:03) states adhesive from medication patches clonazepam [From Klonopin] Allergy (Severe, Verified 11/11/21 22:03) tizanidine HCl [From Zanaflex] Adverse Reaction (Verified 11/11/21 22:03) "weird sensation in legs" restless legs Home Medications: Aspirin/Calcium Carbonate/Mag [Aspirin Buffered 325 mg Tab] 325 mg PO DAILY [History] Gabapentin [Neurontin] 600 mg PO TID 07/04/15 [History] Insulin Lispro [Humalog] 35 units SQ AC 07/04/15 [History] Nitroglycerin 0.4 mg Tablet [Nitrostat 0.4 MG Tablet] 0.4 mg SL Q5MIN PRN MR X 3 PRN 07/04/15 [History] Omeprazole 40 mg PO DAILY 07/04/15 [History] Ondansetron [Zofran Odt] 4 mg SL Q4HPRN PRN 07/04/15 [History] Rosuvastatin Calcium [Crestor] 40 mg PO HS 07/04/15 [History] dilTIAZem HCL [Diltiazem HCl] 120 mg PO DAILY 07/04/15 [History] Oxycodone HCl/Acetaminophen [Percocet 10-325 mg Tablet] 1 each PO Q6HPRN PRN 05/05/16 [History] Carboxymethylcellulose Sodium [Lubricant Eye Drops] 1 drop IO DAILY 05/09/16 [History] Baclofen 10 mg PO TID 11/25/16 [History] Phenytoin Sod Extended 100 mg* [Dilantin 100 MG] 2 cap PO HS 03/02/17 [History] Insulin Degludec [Tresiba Flextouch U-200] 72 unit SQ DAILY 07/09/17 [History] Levothyroxine Sodium 125 mcg PO DAILY 07/09/17 [History] Atorvastatin Calcium 40 mg PO 07/17/20 [History] Clopidogrel Bisulfate [Clopidogrel] 75 mg PO DAILY 07/17/20 [History] Fluoxetine HCl 20 mg PO DAILY 07/17/20 [History] Isosorbide Mononitrate 30 mg [Imdur 30 MG] 30 mg PO DAILY 07/17/20 [History] Losartan Potassium 25 mg PO DAILY 07/17/20 [History] Metoprolol Succinate [Toprol Xl] 25 mg PO DAILY 07/17/20 [History] Phenytoin Sodium Extended 100 mg PO DAILY 07/17/20 [History] levETIRAcetam [Levetiracetam] 250 mg PO BID 07/17/20 [History] Hx Tetanus, Diphtheria Vaccination/Date Given: Yes (unsure) Hx Influenza Vaccination/Date Given: Yes Hx Pneumococcal Vaccination/Date Given: Yes Travel Risk - International Travel Have you traveled outside of the country in past 3 weeks: No - Coronavirus Screening Are you exhibiting any of the following symptoms?: No Close contact with a COVID-19 positive Pt in past 14-21 Days: No - Review of Systems Constitutional: Weakness Eyes: No Symptoms Ears, Nose, & Throat: No Symptoms Respiratory: No Symptoms Cardiac: No Symptoms Abdominal/Gastrointestinal: No Symptoms Genitourinary Symptoms: No Symptoms Musculoskeletal: Other (Worsening cramping type pain generalized torso both anteriorly and posteriorly) Skin: No Symptoms Neurological: No Symptoms Psychological: No Symptoms Endocrine: No Symptoms Hematologic/Lymphatic: No Symptoms Immunological/Allergic: No Symptoms All Other Systems: Reviewed and Negative - Past Medical History Pertinent Past Medical History: Yes Neurological History: Peripheral Neuropathy ENT History: No Pertinent History Cardiac History: Angina, Coronary Artery Disease, High Cholesterol, Hypertension, Myocardial Infarction ([place]) Respiratory History: Bronchitis Endocrine Medical History: Diabetes Type II, Hypothyroidism Musculoskeletal History: Degenerative Disk Disease, Fibromyalgia GI Medical History: GERD, Hernia, Irritable Bowel, Polyps, Other History: No Pertinent History Psycho-Social History: Anxiety, Depression Female Reproductive Disorders: Other Other Medical History: LUPUS PCOS Montejo's esophagus, kyra - Past Surgical History Past Surgical History: Yes Neuro Surgical History: Other Cardiac: Cardiac Catheterization, Cardiac Stent Respiratory: No Pertinent History Gastrointestinal: Cholecystectomy Genitourinary: No Pertinent History Musculoskeletal: Other Female Surgical History: Section, Hysterectomy, Tubal Ligation, Other Other Surgical History: disc fusion c6-c7. left knee arthroscopy. lymph node biopsy. polyps removed from colon. +HPV. lumbar laminectomy. kyra dx - Social History Smoking Status: Current every day smoker How long have you smoked: 23yrs Exposure to second hand smoke: Yes Drug Use: none Patient Lives Alone: No - Nursing Vital Signs Nursing Vital Signs: Initial Vital Signs Temperature 97.2 F 11/11/21 22:04 Pulse Rate 120 H 11/11/21 22:04 Respiratory Rate 20 11/11/21 22:04 Blood Pressure 125/100 11/11/21 22:04 O2 Sat by Pulse Oximetry 98 11/11/21 22:04 Pain Scale Pain Intensity [All over] 6 Pain Intensity 5 - Physical Exam General Appearance: no apparent distress, alert, anxiety Eye Exam: PERRL/EOMI, eyes nml inspection Ears, Nose, Throat Exam: normal ENT inspection, moist mucous membranes Neck Exam: normal inspection, non-tender, supple, full range of motion Respiratory Exam: normal breath sounds, lungs clear, airway intact, No chest tenderness, No respiratory distress Cardiovascular Exam: regular rate/rhythm, normal heart sounds, normal peripheral pulses Gastrointestinal/Abdomen Exam: soft, normal bowel sounds, No tenderness Pelvic Exam: not done Rectal Exam: not done Back Exam: normal inspection, normal range of motion, vertebral tenderness, No CVA tenderness Extremity Exam: normal inspection, normal range of motion, pelvis stable Neurologic Exam: alert, oriented x 3, cooperative, 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 No significant change from comparison EKG dated 07/17/2020.) Ordered Tests: Active Orders 24 hr Category Date Time Status Clean Catch Urine Specimen STAT Care 11/11/21 22:17 Active EKG-ER Only STAT Care 11/11/21 22:31 Active IV Insertion STAT Care 11/11/21 22:17 Active CBC W DIFF Stat Lab 11/11/21 22:31 Completed CMP Stat Lab 11/11/21 22:31 Completed Lactic Acid Stat Lab 11/11/21 22:37 Completed Lactic Acid Stat Lab 11/12/21 00:42 Completed POCT GLUCOSE Stat Lab 11/11/21 22:16 Completed POCT GLUCOSE Stat Lab 11/12/21 01:25 Completed T4 (Thyroxine) Stat Lab 11/11/21 22:31 Completed TROPONIN Q3H Lab 11/11/21 22:31 Completed TROPONIN Q3H Lab 11/12/21 01:15 Received TROPONIN Q3H Lab 11/12/21 04:30 Ordered TROPONIN Q3H Lab 11/12/21 07:30 Ordered TROPONIN Q3H Lab 11/12/21 10:30 Ordered TSH [TSH, 3RD Generation] Stat Lab 11/11/21 22:31 Completed UA W/RFX UR CULTURE Stat Lab 11/11/21 22:31 Completed Urine Triage Profile Stat Lab 11/11/21 22:31 Completed Transfer Order Routine Transfer 11/12/21 Ordered Medication Summary Generic Name Dose Route Start Last Admin Trade Name Freq PRN Reason Stop Dose Admin Sodium Chloride 1,000 mls @ 100 mls/hr 11/11/21 22:45 11/12/21 01:21 Sodium Chloride 0.9% 1000 Ml IV 12/11/21 22:44 999 mls/hr .Q10H [place] Infusion Discontinued Medications Generic Name Dose Route Start Last Admin Trade Name Freq PRN Reason Stop Dose Admin Insulin Human Regular 15 unit 11/11/21 22:32 11/11/21 23:01 Insulin Regular, Human 1 Unit IV 11/11/21 22:33 15 unit STAT ONE Administration Insulin Human Regular Confirm 11/11/21 22:59 Insulin Regular, Human 1 Unit Administered 11/11/21 23:00 Dose 15 unit .ROUTE .STK-MED ONE Lab/Rad Data: Laboratory Result Diagrams 11/11/21 22:31 11/11/21 22:31 Laboratory Results 11/12/21 11/12/21 11/11/21 Range/Units 01:25 00:42 22:37 WBC (4.0-10.5) K/mm3 RBC (4.1-5.4) M/mm3 Hgb (12.0-16.0) gm/dl Hct (35-47) % MCV (78-100) fl MCH (26-32) pg MCHC (32-36) g/dl RDW (11.5-14.0) % Plt Count (150-450) K/mm3 MPV (7.5-11.0) fl Gran % (36.0-66.0) % Eos # (Auto) (0-0.5) Absolute Lymphs (auto) (1.0-4.6) Absolute Monos (auto) (0.0-1.3) Lymphocytes % (24.0-44.0) % Monocytes % (0.0-12.0) % Eosinophils % (0.00-5.0) % Basophils % (0.0-0.4) % Absolute Granulocytes (1.4-6.9) Basophils # (0-0.4) Sodium (137-145) mmol/L Potassium (3.5-5.1) mmol/L Chloride (98-107) mmol/L Carbon Dioxide (22-30) mmol/L Anion Gap (5-15) MEQ/L BUN (7-17) mg/dL Creatinine (0.52-1.04) mg/dL Estimated GFR ML/MIN Glucose (74-106) mg/dL POC Glucometer 313 H (50 to 500) mg/dL Lactic Acid 2.1 H 3.3 H (0.4-2.0) Calcium (8.4-10.2) mg/dL Total Bilirubin (0.2-1.3) mg/dL AST (14-36) U/L ALT (0-35) U/L Alkaline Phosphatase (38-126) U/L Troponin I (0.000-0.034) ng/mL Serum Total Protein (6.3-8.2) g/dL Albumin (3.5-5.0) g/dL Thyroxine (T4) (5.53-10.96) ug/dL TSH 3rd Generation (0.47-4.68) mIU/L Urine Color (YELLOW) Urine Appearance (CLEAR) Urine pH (5-6) Ur Specific Harwood (1.005-1.025) Urine Protein (Negative) Urine Ketones (NEGATIVE) Urine Blood (0-5) Jeronimo/ul Urine Nitrite (NEGATIVE) Urine Bilirubin (NEGATIVE) Urine Urobilinogen (0-1) mg/dL Ur Leukocyte Esterase (NEGATIVE) Urine WBC (Auto) (0-5) /HPF Urine RBC (Auto) (0-2) /HPF U Epithel Cells (Auto) (FEW) /HPF Urine Bacteria (Auto) (NEGATIVE) /HPF Urine Culture Reflexed (NO) Urine Glucose (NEGATIVE) mg/dL Urine Opiates Level (NEGATIVE) Ur Methadone (NEGATIVE) Urine Barbiturates (NEGATIVE) Phenytoin (10-20) ug/mL Ur Phencyclidine (PCP) (NEGATIVE) Urine Amphetamine (NEGATIVE) U Benzodiazepine Level (NEGATIVE) Urine Cocaine (NEGATIVE) Urine Marijuana (THC) (NEGATIVE) 11/11/21 11/11/21 11/11/21 Range/Units 22:31 22:31 22:31 WBC (4.0-10.5) K/mm3 RBC (4.1-5.4) M/mm3 Hgb (12.0-16.0) gm/dl Hct (35-47) % MCV (78-100) fl MCH (26-32) pg MCHC (32-36) g/dl RDW (11.5-14.0) % Plt Count (150-450) K/mm3 MPV (7.5-11.0) fl Gran % (36.0-66.0) % Eos # (Auto) (0-0.5) Absolute Lymphs (auto) (1.0-4.6) Absolute Monos (auto) (0.0-1.3) Lymphocytes % (24.0-44.0) % Monocytes % (0.0-12.0) % Eosinophils % (0.00-5.0) % Basophils % (0.0-0.4) % Absolute Granulocytes (1.4-6.9) Basophils # (0-0.4) Sodium (137-145) mmol/L Potassium (3.5-5.1) mmol/L Chloride (98-107) mmol/L Carbon Dioxide (22-30) mmol/L Anion Gap (5-15) MEQ/L BUN (7-17) mg/dL Creatinine (0.52-1.04) mg/dL Estimated GFR ML/MIN Glucose (74-106) mg/dL POC Glucometer (50 to 500) mg/dL Lactic Acid (0.4-2.0) Calcium (8.4-10.2) mg/dL Total Bilirubin (0.2-1.3) mg/dL AST (14-36) U/L ALT (0-35) U/L Alkaline Phosphatase (38-126) U/L Troponin I < 0.012 (0.000-0.034) ng/mL Serum Total Protein (6.3-8.2) g/dL Albumin (3.5-5.0) g/dL Thyroxine (T4) 5.93 (5.53-10.96) ug/dL TSH 3rd Generation (0.47-4.68) mIU/L Urine Color (YELLOW) Urine Appearance (CLEAR) Urine pH (5-6) Ur Specific Harwood (1.005-1.025) Urine Protein (Negative) Urine Ketones (NEGATIVE) Urine Blood (0-5) Jeronimo/ul Urine Nitrite (NEGATIVE) Urine Bilirubin (NEGATIVE) Urine Urobilinogen (0-1) mg/dL Ur Leukocyte Esterase (NEGATIVE) Urine WBC (Auto) (0-5) /HPF Urine RBC (Auto) (0-2) /HPF U Epithel Cells (Auto) (FEW) /HPF Urine Bacteria (Auto) (NEGATIVE) /HPF Urine Culture Reflexed (NO) Urine Glucose (NEGATIVE) mg/dL Urine Opiates Level (NEGATIVE) Ur Methadone (NEGATIVE) Urine Barbiturates (NEGATIVE) Phenytoin < 3.0 L (10-20) ug/mL Ur Phencyclidine (PCP) (NEGATIVE) Urine Amphetamine (NEGATIVE) U Benzodiazepine Level (NEGATIVE) Urine Cocaine (NEGATIVE) Urine Marijuana (THC) (NEGATIVE) 11/11/21 11/11/21 11/11/21 Range/Units 22:31 22:31 22:31 WBC 12.4 H (4.0-10.5) K/mm3 RBC 4.73 (4.1-5.4) M/mm3 Hgb 14.6 (12.0-16.0) gm/dl Hct 43.9 (35-47) % MCV 92.8 (78-100) fl MCH 30.9 (26-32) pg MCHC 33.3 (32-36) g/dl RDW 12.5 (11.5-14.0) % Plt Count 326 (150-450) K/mm3 MPV 9.7 (7.5-11.0) fl Gran % 74.0 H (36.0-66.0) % Eos # (Auto) 0.09 (0-0.5) Absolute Lymphs (auto) 2.34 (1.0-4.6) Absolute Monos (auto) 0.75 (0.0-1.3) Lymphocytes % 18.8 L (24.0-44.0) % Monocytes % 6.0 (0.0-12.0) % Eosinophils % 0.7 (0.00-5.0) % Basophils % 0.5 (0.0-0.4) % Absolute Granulocytes 9.18 H (1.4-6.9) Basophils # 0.06 (0-0.4) Sodium 129 L (137-145) mmol/L Potassium 4.2 (3.5-5.1) mmol/L Chloride 95 L (98-107) mmol/L Carbon Dioxide 21 L (22-30) mmol/L Anion Gap 18.3 H (5-15) MEQ/L BUN 9 (7-17) mg/dL Creatinine 0.62 (0.52-1.04) mg/dL Estimated GFR > 60.0 ML/MIN Glucose 514 H* (74-106) mg/dL POC Glucometer (50 to 500) mg/dL Lactic Acid (0.4-2.0) Calcium 9.5 (8.4-10.2) mg/dL Total Bilirubin 0.60 (0.2-1.3) mg/dL AST 27 (14-36) U/L ALT 22 (0-35) U/L Alkaline Phosphatase 171 H (38-126) U/L Troponin I (0.000-0.034) ng/mL Serum Total Protein 7.6 (6.3-8.2) g/dL Albumin 4.6 (3.5-5.0) g/dL Thyroxine (T4) (5.53-10.96) ug/dL TSH 3rd Generation 30.600 H (0.47-4.68) mIU/L Urine Color (YELLOW) Urine Appearance (CLEAR) Urine pH (5-6) Ur Specific Harwood (1.005-1.025) Urine Protein (Negative) Urine Ketones (NEGATIVE) Urine Blood (0-5) Jeronimo/ul Urine Nitrite (NEGATIVE) Urine Bilirubin (NEGATIVE) Urine Urobilinogen (0-1) mg/dL Ur Leukocyte Esterase (NEGATIVE) Urine WBC (Auto) (0-5) /HPF Urine RBC (Auto) (0-2) /HPF U Epithel Cells (Auto) (FEW) /HPF Urine Bacteria (Auto) (NEGATIVE) /HPF Urine Culture Reflexed (NO) Urine Glucose (NEGATIVE) mg/dL Urine Opiates Level (NEGATIVE) Ur Methadone (NEGATIVE) Urine Barbiturates (NEGATIVE) Phenytoin (10-20) ug/mL Ur Phencyclidine (PCP) (NEGATIVE) Urine Amphetamine (NEGATIVE) U Benzodiazepine Level (NEGATIVE) Urine Cocaine (NEGATIVE) Urine Marijuana (THC) (NEGATIVE) 11/11/21 11/11/21 11/11/21 Range/Units 22:31 22:31 22:16 WBC (4.0-10.5) K/mm3 RBC (4.1-5.4) M/mm3 Hgb (12.0-16.0) gm/dl Hct (35-47) % MCV (78-100) fl MCH (26-32) pg MCHC (32-36) g/dl RDW (11.5-14.0) % Plt Count (150-450) K/mm3 MPV (7.5-11.0) fl Gran % (36.0-66.0) % Eos # (Auto) (0-0.5) Absolute Lymphs (auto) (1.0-4.6) Absolute Monos (auto) (0.0-1.3) Lymphocytes % (24.0-44.0) % Monocytes % (0.0-12.0) % Eosinophils % (0.00-5.0) % Basophils % (0.0-0.4) % Absolute Granulocytes (1.4-6.9) Basophils # (0-0.4) Sodium (137-145) mmol/L Potassium (3.5-5.1) mmol/L Chloride (98-107) mmol/L Carbon Dioxide (22-30) mmol/L Anion Gap (5-15) MEQ/L BUN (7-17) mg/dL Creatinine (0.52-1.04) mg/dL Estimated GFR ML/MIN Glucose (74-106) mg/dL POC Glucometer 502 H* (50 to 500) mg/dL Lactic Acid (0.4-2.0) Calcium (8.4-10.2) mg/dL Total Bilirubin (0.2-1.3) mg/dL AST (14-36) U/L ALT (0-35) U/L Alkaline Phosphatase (38-126) U/L Troponin I (0.000-0.034) ng/mL Serum Total Protein (6.3-8.2) g/dL Albumin (3.5-5.0) g/dL Thyroxine (T4) (5.53-10.96) ug/dL TSH 3rd Generation (0.47-4.68) mIU/L Urine Color STRAW (YELLOW) Urine Appearance CLEAR (CLEAR) Urine pH 5.0 (5-6) Ur Specific Harwood 1.025 (1.005-1.025) Urine Protein NEGATIVE (Negative) Urine Ketones NEGATIVE (NEGATIVE) Urine Blood NEGATIVE (0-5) Jeronimo/ul Urine Nitrite NEGATIVE (NEGATIVE) Urine Bilirubin NEGATIVE (NEGATIVE) Urine Urobilinogen NEGATIVE (0-1) mg/dL Ur Leukocyte Esterase NEGATIVE (NEGATIVE) Urine WBC (Auto) NONE (0-5) /HPF Urine RBC (Auto) NONE (0-2) /HPF U Epithel Cells (Auto) NONE (FEW) /HPF Urine Bacteria (Auto) NONE (NEGATIVE) /HPF Urine Culture Reflexed NO (NO) Urine Glucose >=500 (NEGATIVE) mg/dL Urine Opiates Level NEGATIVE (NEGATIVE) Ur Methadone NEGATIVE (NEGATIVE) Urine Barbiturates NEGATIVE (NEGATIVE) Phenytoin (10-20) ug/mL Ur Phencyclidine (PCP) NEGATIVE (NEGATIVE) Urine Amphetamine NEGATIVE (NEGATIVE) U Benzodiazepine Level NEGATIVE (NEGATIVE) Urine Cocaine NEGATIVE (NEGATIVE) Urine Marijuana (THC) NEGATIVE (NEGATIVE) - Progress Progress: improved, pain not gone completely Progress Note: 11/12/21 01:34 Medical decision making: This patient does not appear to have DKA but at least has hyperglycemia. We will check urine electrolytes and urine osmolality as well. I spoke with Dr. Med Marti who is the patient's primary care physician. We will bring the patient in and continue IV hydration and recheck labs in the morning and place this patient on a insulin sliding scale. Discussed with : Leigh Counseled pt/family regarding: lab results, diagnosis - Departure Departure Disposition: Observation Clinical Impression: Hyperglycemia, Weakness Condition: Fair Critical Care Time: No Referrals: SRIDEVI KU [Primary Care Provider] - Follow up/PCP as directed
[2021-11-11] MEDS ORDERED: HUMULIN R IV ONE (22:32)
[2021-11-11] MEDS ORDERED: Sodium Chloride 0.9% 1000 ML 1,000 ML IV SCH (22:45)
[2021-11-11 22:46] LABS: Absolute Neutrophil Ct (ANC) 9.18 (1.4-6.9); Basophil (Absolute #) 0.06 (0-0.4); Eosinophil % 0.7 % (0.00-5.0); Eosinophil (Absolute #) 0.09 (0-0.5); Hematocrit 43.9 % (35-47); Hemoglobin 14.6 gm/dl (12.0-16.0); Lymphocyte (Absolute #) 2.34 (1.0-4.6); Lymphocytes % 18.8 % (24.0-44.0); Mean Cell Volume 92.8 fl (78-100); Mean Corpuscular Hemoglobin 30.9 pg (26-32); Mean Corpuscular Hgb Concent. 33.3 g/dl (32-36); Mean Platelet Volume 9.7 fl (7.5-11.0); Monocyte (Absolute #) 0.75 (0.0-1.3); Platelet Count 326 K/mm3 (150-450); Red Blood Count 4.73 M/mm3 (4.1-5.4); Red Cell Distribution Width 12.5 % (11.5-14.0); White Blood Count 12.4 K/mm3 (4.0-10.5)
[2021-11-11 22:54] LABS: Appearance CLEAR (CLEAR); Bilirubin NEGATIVE (NEGATIVE); Blood NEGATIVE Ery/ul (0-5); Glucose >=500 mg/dL (NEGATIVE); Ketones NEGATIVE (NEGATIVE); Leukocyte Esterase NEGATIVE (NEGATIVE); Nitrite NEGATIVE (NEGATIVE); Protein,Urine Dip NEGATIVE (Negative); Specific Gravity 1.025 (1.005-1.025); Urobilinogen NEGATIVE mg/dL (0-1)
[2021-11-11] MEDS ORDERED: Sodium Chloride 0.9% 1000 ML 1,000 ML ONE (22:59)
[2021-11-11] MEDS ORDERED: HUMULIN R ONE (22:59)
[2021-11-11 23:02] LABS: ALBUMIN 4.6 g/dL (3.5-5.0); ALKALINE PHOSPHATASE 171 U/L (38-126); ANION GAP 18.3 MEQ/L (5-15); BLOOD UREA NITROGEN 9 mg/dL (7-17); CHLORIDE 95 mmol/L (98-107); Calcium 9.5 mg/dL (8.4-10.2); Carbon Dioxide 21 mmol/L (22-30); Creatinine 1 0.62 mg/dL (0.52-1.04); EST GLOMERULAR FILTRATION RATE > 60.0 ML/MIN; Potassium 4.2 mmol/L (3.5-5.1); SGOT/AST 27 U/L (14-36); SGPT/ALT 22 U/L (0-35); SODIUM 129 mmol/L (137-145); Total Protein 7.6 g/dL (6.3-8.2)
[2021-11-11 23:10] LABS: Amphetamine,Urine NEGATIVE (NEGATIVE); Barbiturate,Urine NEGATIVE (NEGATIVE); Benzodiazepine,Urine NEGATIVE (NEGATIVE); Cocaine,Urine NEGATIVE (NEGATIVE); Glucose 514 mg/dL (74-106); Methadone,Urine NEGATIVE (NEGATIVE); Opiate,Urine NEGATIVE (NEGATIVE); PCP,Urine NEGATIVE (NEGATIVE); THC,Urine NEGATIVE (NEGATIVE)
[2021-11-12 02:36] LABS: INFLUENZA A NEGATIVE (NEGATIVE); INFLUENZA B NEGATIVE (NEGATIVE); RESPIRATORY SYNCTIAL VIRUS NEGATIVE (Negative); SARS-CoV-2 Xpert Express NEGATIVE (NEGATIVE)
[2021-11-12] MEDS ORDERED: HUMULIN R SQ PRN (03:51)
[2021-11-12] MEDS ORDERED: TYLENOL 325 MG PO PRN (03:51)
[2021-11-12] MEDS ORDERED: Sodium Chloride 0.9% 1000 ML 1,000 ML IV SCH (03:51)
[2021-11-12] MEDS ORDERED: Zofran 4 MG/2 ML VIAL IV PRN (03:51)
[2021-11-12 04:46] LABS: Absolute Neutrophil Ct (ANC) 4.82 (1.4-6.9); Basophil (Absolute #) 0.06 (0-0.4); Eosinophil % 1.4 % (0.00-5.0); Eosinophil (Absolute #) 0.12 (0-0.5); Hematocrit 41.4 % (35-47); Hemoglobin 13.7 gm/dl (12.0-16.0); Lymphocyte (Absolute #) 2.81 (1.0-4.6); Lymphocytes % 33.5 % (24.0-44.0); Mean Cell Volume 93.9 fl (78-100); Mean Corpuscular Hemoglobin 31.1 pg (26-32); Mean Corpuscular Hgb Concent. 33.1 g/dl (32-36); Mean Platelet Volume 9.4 fl (7.5-11.0); Monocyte (Absolute #) 0.58 (0.0-1.3); Monocytes % 6.9 % (0.0-12.0); Neutrophil % 57.5 % (36.0-66.0); Platelet Count 314 K/mm3 (150-450); Red Blood Count 4.41 M/mm3 (4.1-5.4); Red Cell Distribution Width 12.5 % (11.5-14.0); White Blood Count 8.4 K/mm3 (4.0-10.5)
[2021-11-12 05:03] LABS: ALKALINE PHOSPHATASE 163 U/L (38-126); ANION GAP 9.4 MEQ/L (5-15); BLOOD UREA NITROGEN 10 mg/dL (7-17); CHLORIDE 99 mmol/L (98-107); Calcium 9.2 mg/dL (8.4-10.2); Carbon Dioxide 27 mmol/L (22-30); Creatinine 1 0.47 mg/dL (0.52-1.04); EST GLOMERULAR FILTRATION RATE > 60.0 ML/MIN; Glucose 320 mg/dL (74-106); Potassium 3.8 mmol/L (3.5-5.1); SGOT/AST 20 U/L (14-36); SGPT/ALT 18 U/L (0-35); SODIUM 131 mmol/L (137-145); Total Protein 6.7 g/dL (6.3-8.2)
[2021-11-12] MEDS: OXYCODONE-ACETAMINOPHEN 10-325 PO PRN ×3 (05:09→17:44)
[2021-11-12] MEDS ORDERED: Dilantin 100 MG PO SCH (10:00)
[2021-11-12] MEDS ORDERED: Nitrostat 0.4 MG Tablet SL PRN (10:50)
[2021-11-12] MEDS ORDERED: Robaxin 500 MG PO PRN (10:50)
[2021-11-12] MEDS ORDERED: CARBOXYMETHYLCELLULOSE SODIUM IO PRN (10:50)
[2021-11-12] MEDS ORDERED: Imdur 30 MG PO SCH (11:00)
[2021-11-12] MEDS ORDERED: Keppra 250 MG PO SCH (11:00)
[2021-11-12] MEDS ORDERED: ECOTRIN 81 MG PO SCH (11:00)
[2021-11-12] MEDS ORDERED: Lopressor 25MG Tab PO SCH (11:00)
[2021-11-12] MEDS ORDERED: Artificial Tears 15 ML OP PRN (11:03)
[2021-11-12] MEDS ORDERED: Cardizem CD 120 MG PO SCH (11:15)
[2021-11-12] MEDS ORDERED: Lantus Insulin SQ SCH (11:15)
[2021-11-12] MEDS ORDERED: PLAVIX 75 MG Tablet PO SCH (11:15)
[2021-11-12] MEDS ORDERED: SYNTHROID 125 MCG PO SCH (11:15)
[2021-11-12] MEDS ORDERED: Protonix 40MG Tablet PO SCH (11:15)
[2021-11-12] MEDS ORDERED: Neurontin 400 MG PO SCH (11:15)
[2021-11-12] MEDS ORDERED: Prozac 20 MG PO SCH (11:15)
[2021-11-12] MEDS ORDERED: NON-FORMULARY ITEM (Insulin Lispro 1 UNIT Ml) SQ SCH (11:30)
[2021-11-12] MEDS: LIORESAL 10 MG PO SCH ×2 (11:38→17:29)
[2021-11-12] MEDS: HUMALOG SQ SCH ×2 (11:40→17:26)
[2021-11-12 11:52] VITALS: O2SAT 93
--- NOTE | 2021-11-12 13:46 | PCM.SSS ---
History of Present Illness - Chief Complaint Chief Complaint: Hyperglycemia History of Present Illness: is a 46 year old female pt of mine from [facility] with hx CAD w stent, hyperlipidemia, lupus, DM, CHF, COPD, GERD, Kyra thyroiditis, seizure disorder, CKD, pancreatic insufficiency, chronic back pain, mixed collagen vascular disease, steatosis or liver, and depression who was admitted to ER with hyperglycemia and weakness. She had been having muscle spasms in the legs, throat, belly, and sides that were worse with motion - worse yesterday. Has been having some rigidity in the legs that has been new since September, with cramps. She has trouble walking at times due to feet cramping. Increased fatigue and unsteady gate were new yesterday. In ER her blood sugar was 514 although her anion gap didn't indicate DKA. Lactic acid was 3.3. Troponins were neg x 3. TSH 30 so will increase levothyroxine from 125mcg/ to 137 mcg/d. Her dilantin level was < 3 so I have increased it from 300mg po daily to 400mg po daily. Today her lactic acid was 2.1. She was already feeling better she says d/t IV fluids. Sugars in the 300s. If feeling better, pt will discharge to home later today. She is to f/u with Dr. Monge (pt is to call to make appointment). - Review of Systems Respiratory: Cough (dry, started yesterday) Abdominal/Gastrointestinal: Other (incontinent of loose stool recently) Musculoskeletal: Other (cramps, diffuse, intermittent) Neurological: Other (scattered paresthesias) Psychological: Anxiety, Depression (anxiety and depression are improved and doing pretty well - better with her son in alf as she feels safer.) All Other Systems: Reviewed and Negative Medications & Allergies Home Medications: Home Medication List Gabapentin [Neurontin] 1,200 mg PO TID 07/04/15 [History Confirmed 11/12/21] Insulin Lispro [Humalog] 35 units SQ AC 07/04/15 [History Confirmed 11/12/21] Nitroglycerin 0.4 mg Tablet [Nitrostat 0.4 MG Tablet] 0.4 mg SL Q5MIN PRN MR X 3 PRN 07/04/15 [History Confirmed 11/12/21] Omeprazole 40 mg PO DAILY 07/04/15 [History Confirmed 11/12/21] dilTIAZem HCL [Diltiazem HCl] 120 mg PO DAILY 07/04/15 [History Confirmed 02/28] Oxycodone HCl/Acetaminophen [Percocet 10-325 mg Tablet] 1 each PO Q6HPRN PRN 05/05/16 [History Confirmed 11/12/21] Carboxymethylcellulose Sodium [Lubricant Eye Drops] 1 drop IO UD PRN 05/09/16 [History Confirmed 11/12/21] Baclofen 10 mg PO TID 11/25/16 [History Confirmed 11/12/21] Insulin Degludec [Tresiba Flextouch U-200] 72 unit SQ DAILY 07/09/17 [History Confirmed 11/12/21] Atorvastatin Calcium 80 mg PO HS 07/17/20 [History Confirmed 11/12/21] Clopidogrel Bisulfate [Clopidogrel] 75 mg PO DAILY 07/17/20 [History Confirmed 11/12/21] Fluoxetine HCl 60 mg PO DAILY 07/17/20 [History Confirmed 11/12/21] Isosorbide Mononitrate 30 mg [Imdur 30 MG] 30 mg PO DAILY 07/17/20 [History Confirmed 11/12/21] levETIRAcetam [Levetiracetam] 250 mg PO BID 07/17/20 [History Confirmed 11/12/21] Amitriptyline HCl 25 mg [Elavil 25 mg] 25 mg PO QHS 11/12/21 [History Confirmed 11/12/21] Aspirin [Aspirin EC] 81 mg PO DAILY 11/12/21 [History Confirmed 11/12/21] Hydroxychloroquine Sulfate 200 mg PO BID 11/12/21 [History Confirmed 11/12/21] Levothyroxine Sodium 137 mcg PO DAILY #30 tablet 11/12/21 [Rx] Metoprolol Tartrate 25 mg [Lopressor 25MG Tab] 25 mg PO BID 11/12/21 [History Confirmed 11/12/21] Phenytoin Sod Extended 100 mg* [Dilantin 100 MG] 200 mg PO BID #60 cap 11/12/21 [Rx] Pramipexole Di-HCl [Pramipexole Dihydrochloride] 0.25 mg PO QHS 11/12/21 [History Confirmed 11/12/21] methocarbamoL [Methocarbamol] 1,000 mg PO Q6H PRN PRN 11/12/21 [History Confirmed 11/12/21] Allergies/Adverse Reactions: Allergies Allergy/AdvReac Type Severity Reaction Status Date / Time adhesive Allergy Severe Verified 11/12/21 03:58 clonazepam [From Klonopin] Allergy Severe Verified 11/12/21 03:58 tizanidine HCl AdvReac Verified 11/12/21 03:58 [From Zanaflex] - Past Medical History Past Medical History: Yes Neurological History: Peripheral Neuropathy ENT History: No Pertinent History Cardiac History: Angina, Coronary Artery Disease, High Cholesterol, Hypertension, Myocardial Infarction (PR) Respiratory History: Bronchitis Endocrine Medical History: Diabetes Type II, Hypothyroidism Musculoskelatal History: Degenerative Disk Disease, Fibromyalgia GI Medical History: GERD, Hernia, Irritable Bowel, Polyps, Other History: No Pertinent History Pyscho-Social History: Anxiety, Depression Reproductive Disorders: Other Comment: lupus, PCOS, calderón's esophagus, kyra, fasciculation, hiatal hernia - Female History Are you now?: No - Past Surgical History Past Surgical History: Yes Neuro Surgical History: Other Cardiac History: Cardiac Catheterization, Cardiac Stent Respiratory Surgery: No Pertinent History GI Surgical History: Cholecystectomy Genitourinary Surgical Hx: No Pertinent History Musculskeletal Surgical Hx: Other Female Surgical History: Section, Hysterectomy, Tubal Ligation, Other Other Surgical History: disc fusion c6-c7, left knee arthroscopy, lymph node biopsy, polyps removed from colon, +HPV, lumbar laminectomy, posterior discectomy - rods, pins, bone graft L4-S1 - Social History Smoking Status: Current every day smoker How long have you smoked: 31 years Exposure to second hand smoke: Yes Alcohol: None Drug Use: none - Physical Exam Vital Signs: Vital Signs - 24 hr Temp Pulse Resp BP BP Pulse Ox 11/12/21 11:51 97.5 F 92 H 16 126/70 93 L 11/12/21 07:52 96.9 F 83 19 132/60 92 L 11/12/21 04:14 97.3 F 97 H 16 116/59 99 11/12/21 04:05 97.3 F 91 H 16 116/59 94 L 11/12/21 03:00 90 20 121/80 93 L 11/12/21 02:00 92 H 20 121/93 94 L 11/12/21 01:00 90 20 128/79 94 L 11/12/21 00:00 90 20 98/63 95 11/11/21 23:00 80 18 109/64 98 11/11/21 22:04 97.2 F 120 H 20 125/100 98 General Appearance: no apparent distress, obese Neurologic Exam: oriented x 3, cooperative Eye Exam: eyes nml inspection Ears, Nose, Throat Exam: moist mucous membranes Neck Exam: normal inspection, non-tender, supple, No lymphadenopathy Respiratory Exam: normal breath sounds, lungs clear, No crackles/rales, No rhonchi, No wheezing Cardiovascular Exam: regular rate/rhythm, normal heart sounds, No murmur Gastrointestinal/Abdomen Exam: soft, normal bowel sounds, No tenderness, No distention, No mass, No guarding, No rebound Back Exam: normal inspection, No rash Extremity Exam: normal inspection, No pedal edema, No swelling Skin Exam: normal color, warm, dry, No rash Results - Labs Lab/Micro Results: Lab Results-Last 24 Hours 11/11/21 11/11/21 11/11/21 Range/Units 22:16 22:31 22:31 WBC (4.0-10.5) K/mm3 RBC (4.1-5.4) M/mm3 Hgb (12.0-16.0) gm/dl Hct (35-47) % MCV (78-100) fl MCH (26-32) pg MCHC (32-36) g/dl RDW (11.5-14.0) % Plt Count (150-450) K/mm3 MPV (7.5-11.0) fl Gran % (36.0-66.0) % Eos # (Auto) (0-0.5) Absolute Lymphs (auto) (1.0-4.6) Absolute Monos (auto) (0.0-1.3) Lymphocytes % (24.0-44.0) % Monocytes % (0.0-12.0) % Eosinophils % (0.00-5.0) % Basophils % (0.0-0.4) % Absolute Granulocytes (1.4-6.9) Basophils # (0-0.4) Sodium (137-145) mmol/L Potassium (3.5-5.1) mmol/L Chloride (98-107) mmol/L Carbon Dioxide (22-30) mmol/L Anion Gap (5-15) MEQ/L BUN (7-17) mg/dL Creatinine (0.52-1.04) mg/dL Estimated GFR ML/MIN Glucose (74-106) mg/dL POC Glucometer 502 H* (50 to 500) mg/dL Lactic Acid (0.4-2.0) Calcium (8.4-10.2) mg/dL Total Bilirubin (0.2-1.3) mg/dL AST (14-36) U/L ALT (0-35) U/L Alkaline Phosphatase (38-126) U/L Troponin I (0.000-0.034) ng/mL Serum Total Protein (6.3-8.2) g/dL Albumin (3.5-5.0) g/dL Thyroxine (T4) (5.53-10.96) ug/dL TSH 3rd Generation (0.47-4.68) mIU/L Urine Color STRAW (YELLOW) Urine Appearance CLEAR (CLEAR) Urine pH 5.0 (5-6) Ur Specific [place] 1.025 (1.005-1.025) Urine Protein NEGATIVE (Negative) Urine Ketones NEGATIVE (NEGATIVE) Urine Blood NEGATIVE (0-5) Jeronimo/ul Urine Nitrite NEGATIVE (NEGATIVE) Urine Bilirubin NEGATIVE (NEGATIVE) Urine Urobilinogen NEGATIVE (0-1) mg/dL Ur Leukocyte Esterase NEGATIVE (NEGATIVE) Urine WBC (Auto) NONE (0-5) /HPF Urine RBC (Auto) NONE (0-2) /HPF U Epithel Cells (Auto) NONE (FEW) /HPF Urine Bacteria (Auto) NONE (NEGATIVE) /HPF Urine Culture Reflexed NO (NO) Urine Glucose >=500 (NEGATIVE) mg/dL Urine Opiates Level NEGATIVE (NEGATIVE) Ur Methadone NEGATIVE (NEGATIVE) Urine Barbiturates NEGATIVE (NEGATIVE) Phenytoin (10-20) ug/mL Ur Phencyclidine (PCP) NEGATIVE (NEGATIVE) Urine Amphetamine NEGATIVE (NEGATIVE) U Benzodiazepine Level NEGATIVE (NEGATIVE) Urine Cocaine NEGATIVE (NEGATIVE) Urine Marijuana (THC) NEGATIVE (NEGATIVE) Influenza Type A Ag (NEGATIVE) Influenza Type B Ag (NEGATIVE) RSV (PCR) (Negative) SARS-CoV-2 (PCR) (NEGATIVE) 11/11/21 11/11/21 11/11/21 Range/Units 22:31 22:31 22:31 WBC 12.4 H (4.0-10.5) K/mm3 RBC 4.73 (4.1-5.4) M/mm3 Hgb 14.6 (12.0-16.0) gm/dl Hct 43.9 (35-47) % MCV 92.8 (78-100) fl MCH 30.9 (26-32) pg MCHC 33.3 (32-36) g/dl RDW 12.5 (11.5-14.0) % Plt Count 326 (150-450) K/mm3 MPV 9.7 (7.5-11.0) fl Gran % 74.0 H (36.0-66.0) % Eos # (Auto) 0.09 (0-0.5) Absolute Lymphs (auto) 2.34 (1.0-4.6) Absolute Monos (auto) 0.75 (0.0-1.3) Lymphocytes % 18.8 L (24.0-44.0) % Monocytes % 6.0 (0.0-12.0) % Eosinophils % 0.7 (0.00-5.0) % Basophils % 0.5 (0.0-0.4) % Absolute Granulocytes 9.18 H (1.4-6.9) Basophils # 0.06 (0-0.4) Sodium 129 L (137-145) mmol/L Potassium 4.2 (3.5-5.1) mmol/L Chloride 95 L (98-107) mmol/L Carbon Dioxide 21 L (22-30) mmol/L Anion Gap 18.3 H (5-15) MEQ/L BUN 9 (7-17) mg/dL Creatinine 0.62 (0.52-1.04) mg/dL Estimated GFR > 60.0 ML/MIN Glucose 514 H* (74-106) mg/dL POC Glucometer (50 to 500) mg/dL Lactic Acid (0.4-2.0) Calcium 9.5 (8.4-10.2) mg/dL Total Bilirubin 0.60 (0.2-1.3) mg/dL AST 27 (14-36) U/L ALT 22 (0-35) U/L Alkaline Phosphatase 171 H (38-126) U/L Troponin I (0.000-0.034) ng/mL Serum Total Protein 7.6 (6.3-8.2) g/dL Albumin 4.6 (3.5-5.0) g/dL Thyroxine (T4) (5.53-10.96) ug/dL TSH 3rd Generation 30.600 H (0.47-4.68) mIU/L Urine Color (YELLOW) Urine Appearance (CLEAR) Urine pH (5-6) Ur Specific [place] (1.005-1.025) Urine Protein (Negative) Urine Ketones (NEGATIVE) Urine Blood (0-5) Jeronimo/ul Urine Nitrite (NEGATIVE) Urine Bilirubin (NEGATIVE) Urine Urobilinogen (0-1) mg/dL Ur Leukocyte Esterase (NEGATIVE) Urine WBC (Auto) (0-5) /HPF Urine RBC (Auto) (0-2) /HPF U Epithel Cells (Auto) (FEW) /HPF Urine Bacteria (Auto) (NEGATIVE) /HPF Urine Culture Reflexed (NO) Urine Glucose (NEGATIVE) mg/dL Urine Opiates Level (NEGATIVE) Ur Methadone (NEGATIVE) Urine Barbiturates (NEGATIVE) Phenytoin (10-20) ug/mL Ur Phencyclidine (PCP) (NEGATIVE) Urine Amphetamine (NEGATIVE) U Benzodiazepine Level (NEGATIVE) Urine Cocaine (NEGATIVE) Urine Marijuana (THC) (NEGATIVE) Influenza Type A Ag (NEGATIVE) Influenza Type B Ag (NEGATIVE) RSV (PCR) (Negative) SARS-CoV-2 (PCR) (NEGATIVE) 11/11/21 11/11/21 11/11/21 Range/Units 22:31 22:31 22:31 WBC (4.0-10.5) K/mm3 RBC (4.1-5.4) M/mm3 Hgb (12.0-16.0) gm/dl Hct (35-47) % MCV (78-100) fl MCH (26-32) pg MCHC (32-36) g/dl RDW (11.5-14.0) % Plt Count (150-450) K/mm3 MPV (7.5-11.0) fl Gran % (36.0-66.0) % Eos # (Auto) (0-0.5) Absolute Lymphs (auto) (1.0-4.6) Absolute Monos (auto) (0.0-1.3) Lymphocytes % (24.0-44.0) % Monocytes % (0.0-12.0) % Eosinophils % (0.00-5.0) % Basophils % (0.0-0.4) % Absolute Granulocytes (1.4-6.9) Basophils # (0-0.4) Sodium (137-145) mmol/L Potassium (3.5-5.1) mmol/L Chloride (98-107) mmol/L Carbon Dioxide (22-30) mmol/L Anion Gap (5-15) MEQ/L BUN (7-17) mg/dL Creatinine (0.52-1.04) mg/dL Estimated GFR ML/MIN Glucose (74-106) mg/dL POC Glucometer (50 to 500) mg/dL Lactic Acid (0.4-2.0) Calcium (8.4-10.2) mg/dL Total Bilirubin (0.2-1.3) mg/dL AST (14-36) U/L ALT (0-35) U/L Alkaline Phosphatase (38-126) U/L Troponin I < 0.012 (0.000-0.034) ng/mL Serum Total Protein (6.3-8.2) g/dL Albumin (3.5-5.0) g/dL Thyroxine (T4) 5.93 (5.53-10.96) ug/dL TSH 3rd Generation (0.47-4.68) mIU/L Urine Color (YELLOW) Urine Appearance (CLEAR) Urine pH (5-6) Ur Specific [place] (1.005-1.025) Urine Protein (Negative) Urine Ketones (NEGATIVE) Urine Blood (0-5) Jeronimo/ul Urine Nitrite (NEGATIVE) Urine Bilirubin (NEGATIVE) Urine Urobilinogen (0-1) mg/dL Ur Leukocyte Esterase (NEGATIVE) Urine WBC (Auto) (0-5) /HPF Urine RBC (Auto) (0-2) /HPF U Epithel Cells (Auto) (FEW) /HPF Urine Bacteria (Auto) (NEGATIVE) /HPF Urine Culture Reflexed (NO) Urine Glucose (NEGATIVE) mg/dL Urine Opiates Level (NEGATIVE) Ur Methadone (NEGATIVE) Urine Barbiturates (NEGATIVE) Phenytoin < 3.0 L (10-20) ug/mL Ur Phencyclidine (PCP) (NEGATIVE) Urine Amphetamine (NEGATIVE) U Benzodiazepine Level (NEGATIVE) Urine Cocaine (NEGATIVE) Urine Marijuana (THC) (NEGATIVE) Influenza Type A Ag (NEGATIVE) Influenza Type B Ag (NEGATIVE) RSV (PCR) (Negative) SARS-CoV-2 (PCR) (NEGATIVE) 11/11/21 11/12/21 11/12/21 Range/Units 22:37 00:42 01:15 WBC (4.0-10.5) K/mm3 RBC (4.1-5.4) M/mm3 Hgb (12.0-16.0) gm/dl Hct (35-47) % MCV (78-100) fl MCH (26-32) pg MCHC (32-36) g/dl RDW (11.5-14.0) % Plt Count (150-450) K/mm3 MPV (7.5-11.0) fl Gran % (36.0-66.0) % Eos # (Auto) (0-0.5) Absolute Lymphs (auto) (1.0-4.6) Absolute Monos (auto) (0.0-1.3) Lymphocytes % (24.0-44.0) % Monocytes % (0.0-12.0) % Eosinophils % (0.00-5.0) % Basophils % (0.0-0.4) % Absolute Granulocytes (1.4-6.9) Basophils # (0-0.4) Sodium (137-145) mmol/L Potassium (3.5-5.1) mmol/L Chloride (98-107) mmol/L Carbon Dioxide (22-30) mmol/L Anion Gap (5-15) MEQ/L BUN (7-17) mg/dL Creatinine (0.52-1.04) mg/dL Estimated GFR ML/MIN Glucose (74-106) mg/dL POC Glucometer (50 to 500) mg/dL Lactic Acid 3.3 H 2.1 H (0.4-2.0) Calcium (8.4-10.2) mg/dL Total Bilirubin (0.2-1.3) mg/dL AST (14-36) U/L ALT (0-35) U/L Alkaline Phosphatase (38-126) U/L Troponin I < 0.012 (0.000-0.034) ng/mL Serum Total Protein (6.3-8.2) g/dL Albumin (3.5-5.0) g/dL Thyroxine (T4) (5.53-10.96) ug/dL TSH 3rd Generation (0.47-4.68) mIU/L Urine Color (YELLOW) Urine Appearance (CLEAR) Urine pH (5-6) Ur Specific [place] (1.005-1.025) Urine Protein (Negative) Urine Ketones (NEGATIVE) Urine Blood (0-5) Jeronimo/ul Urine Nitrite (NEGATIVE) Urine Bilirubin (NEGATIVE) Urine Urobilinogen (0-1) mg/dL Ur Leukocyte Esterase (NEGATIVE) Urine WBC (Auto) (0-5) /HPF Urine RBC (Auto) (0-2) /HPF U Epithel Cells (Auto) (FEW) /HPF Urine Bacteria (Auto) (NEGATIVE) /HPF Urine Culture Reflexed (NO) Urine Glucose (NEGATIVE) mg/dL Urine Opiates Level (NEGATIVE) Ur Methadone (NEGATIVE) Urine Barbiturates (NEGATIVE) Phenytoin (10-20) ug/mL Ur Phencyclidine (PCP) (NEGATIVE) Urine Amphetamine (NEGATIVE) U Benzodiazepine Level (NEGATIVE) Urine Cocaine (NEGATIVE) Urine Marijuana (THC) (NEGATIVE) Influenza Type A Ag (NEGATIVE) Influenza Type B Ag (NEGATIVE) RSV (PCR) (Negative) SARS-CoV-2 (PCR) (NEGATIVE) 11/12/21 11/12/21 11/12/21 Range/Units 01:25 01:53 04:30 WBC (4.0-10.5) K/mm3 RBC (4.1-5.4) M/mm3 Hgb (12.0-16.0) gm/dl Hct (35-47) % MCV (78-100) fl MCH (26-32) pg MCHC (32-36) g/dl RDW (11.5-14.0) % Plt Count (150-450) K/mm3 MPV (7.5-11.0) fl Gran % (36.0-66.0) % Eos # (Auto) (0-0.5) Absolute Lymphs (auto) (1.0-4.6) Absolute Monos (auto) (0.0-1.3) Lymphocytes % (24.0-44.0) % Monocytes % (0.0-12.0) % Eosinophils % (0.00-5.0) % Basophils % (0.0-0.4) % Absolute Granulocytes (1.4-6.9) Basophils # (0-0.4) Sodium (137-145) mmol/L Potassium (3.5-5.1) mmol/L Chloride (98-107) mmol/L Carbon Dioxide (22-30) mmol/L Anion Gap (5-15) MEQ/L BUN (7-17) mg/dL Creatinine (0.52-1.04) mg/dL Estimated GFR ML/MIN Glucose (74-106) mg/dL POC Glucometer 313 H (50 to 500) mg/dL Lactic Acid (0.4-2.0) Calcium (8.4-10.2) mg/dL Total Bilirubin (0.2-1.3) mg/dL AST (14-36) U/L ALT (0-35) U/L Alkaline Phosphatase (38-126) U/L Troponin I < 0.012 (0.000-0.034) ng/mL Serum Total Protein (6.3-8.2) g/dL Albumin (3.5-5.0) g/dL Thyroxine (T4) (5.53-10.96) ug/dL TSH 3rd Generation (0.47-4.68) mIU/L Urine Color (YELLOW) Urine Appearance (CLEAR) Urine pH (5-6) Ur Specific [place] (1.005-1.025) Urine Protein (Negative) Urine Ketones (NEGATIVE) Urine Blood (0-5) Jeronimo/ul Urine Nitrite (NEGATIVE) Urine Bilirubin (NEGATIVE) Urine Urobilinogen (0-1) mg/dL Ur Leukocyte Esterase (NEGATIVE) Urine WBC (Auto) (0-5) /HPF Urine RBC (Auto) (0-2) /HPF U Epithel Cells (Auto) (FEW) /HPF Urine Bacteria (Auto) (NEGATIVE) /HPF Urine Culture Reflexed (NO) Urine Glucose (NEGATIVE) mg/dL Urine Opiates Level (NEGATIVE) Ur Methadone (NEGATIVE) Urine Barbiturates (NEGATIVE) Phenytoin (10-20) ug/mL Ur Phencyclidine (PCP) (NEGATIVE) Urine Amphetamine (NEGATIVE) U Benzodiazepine Level (NEGATIVE) Urine Cocaine (NEGATIVE) Urine Marijuana (THC) (NEGATIVE) Influenza Type A Ag NEGATIVE (NEGATIVE) Influenza Type B Ag NEGATIVE (NEGATIVE) RSV (PCR) NEGATIVE (Negative) SARS-CoV-2 (PCR) NEGATIVE (NEGATIVE) 11/12/21 11/12/21 11/12/21 Range/Units 04:30 04:30 07:16 WBC 8.4 (4.0-10.5) K/mm3 RBC 4.41 (4.1-5.4) M/mm3 Hgb 13.7 (12.0-16.0) gm/dl Hct 41.4 (35-47) % MCV 93.9 (78-100) fl MCH 31.1 (26-32) pg MCHC 33.1 (32-36) g/dl RDW 12.5 (11.5-14.0) % Plt Count 314 (150-450) K/mm3 MPV 9.4 (7.5-11.0) fl Gran % 57.5 (36.0-66.0) % Eos # (Auto) 0.12 (0-0.5) Absolute Lymphs (auto) 2.81 (1.0-4.6) Absolute Monos (auto) 0.58 (0.0-1.3) Lymphocytes % 33.5 (24.0-44.0) % Monocytes % 6.9 (0.0-12.0) % Eosinophils % 1.4 (0.00-5.0) % Basophils % 0.7 (0.0-0.4) % Absolute Granulocytes 4.82 (1.4-6.9) Basophils # 0.06 (0-0.4) Sodium 131 L (137-145) mmol/L Potassium 3.8 (3.5-5.1) mmol/L Chloride 99 (98-107) mmol/L Carbon Dioxide 27 (22-30) mmol/L Anion Gap 9.4 (5-15) MEQ/L BUN 10 (7-17) mg/dL Creatinine 0.47 L (0.52-1.04) mg/dL Estimated GFR > 60.0 ML/MIN Glucose 320 H (74-106) mg/dL POC Glucometer 312 H (50 to 500) mg/dL Lactic Acid (0.4-2.0) Calcium 9.2 (8.4-10.2) mg/dL Total Bilirubin 0.40 (0.2-1.3) mg/dL AST 20 (14-36) U/L ALT 18 (0-35) U/L Alkaline Phosphatase 163 H (38-126) U/L Troponin I (0.000-0.034) ng/mL Serum Total Protein 6.7 (6.3-8.2) g/dL Albumin 4.0 (3.5-5.0) g/dL Thyroxine (T4) (5.53-10.96) ug/dL TSH 3rd Generation (0.47-4.68) mIU/L Urine Color (YELLOW) Urine Appearance (CLEAR) Urine pH (5-6) Ur Specific [place] (1.005-1.025) Urine Protein (Negative) Urine Ketones (NEGATIVE) Urine Blood (0-5) Jeronimo/ul Urine Nitrite (NEGATIVE) Urine Bilirubin (NEGATIVE) Urine Urobilinogen (0-1) mg/dL Ur Leukocyte Esterase (NEGATIVE) Urine WBC (Auto) (0-5) /HPF Urine RBC (Auto) (0-2) /HPF U Epithel Cells (Auto) (FEW) /HPF Urine Bacteria (Auto) (NEGATIVE) /HPF Urine Culture Reflexed (NO) Urine Glucose (NEGATIVE) mg/dL Urine Opiates Level (NEGATIVE) Ur Methadone (NEGATIVE) Urine Barbiturates (NEGATIVE) Phenytoin (10-20) ug/mL Ur Phencyclidine (PCP) (NEGATIVE) Urine Amphetamine (NEGATIVE) U Benzodiazepine Level (NEGATIVE) Urine Cocaine (NEGATIVE) Urine Marijuana (THC) (NEGATIVE) Influenza Type A Ag (NEGATIVE) Influenza Type B Ag (NEGATIVE) RSV (PCR) (Negative) SARS-CoV-2 (PCR) (NEGATIVE) 11/12/21 11/12/21 11/12/21 Range/Units 07:43 10:15 11:41 WBC (4.0-10.5) K/mm3 RBC (4.1-5.4) M/mm3 Hgb (12.0-16.0) gm/dl Hct (35-47) % MCV (78-100) fl MCH (26-32) pg MCHC (32-36) g/dl RDW (11.5-14.0) % Plt Count (150-450) K/mm3 MPV (7.5-11.0) fl Gran % (36.0-66.0) % Eos # (Auto) (0-0.5) Absolute Lymphs (auto) (1.0-4.6) Absolute Monos (auto) (0.0-1.3) Lymphocytes % (24.0-44.0) % Monocytes % (0.0-12.0) % Eosinophils % (0.00-5.0) % Basophils % (0.0-0.4) % Absolute Granulocytes (1.4-6.9) Basophils # (0-0.4) Sodium (137-145) mmol/L Potassium (3.5-5.1) mmol/L Chloride (98-107) mmol/L Carbon Dioxide (22-30) mmol/L Anion Gap (5-15) MEQ/L BUN (7-17) mg/dL Creatinine (0.52-1.04) mg/dL Estimated GFR ML/MIN Glucose (74-106) mg/dL POC Glucometer 383 H (50 to 500) mg/dL Lactic Acid (0.4-2.0) Calcium (8.4-10.2) mg/dL Total Bilirubin (0.2-1.3) mg/dL AST (14-36) U/L ALT (0-35) U/L Alkaline Phosphatase (38-126) U/L Troponin I < 0.012 < 0.012 (0.000-0.034) ng/mL Serum Total Protein (6.3-8.2) g/dL Albumin (3.5-5.0) g/dL Thyroxine (T4) (5.53-10.96) ug/dL TSH 3rd Generation (0.47-4.68) mIU/L Urine Color (YELLOW) Urine Appearance (CLEAR) Urine pH (5-6) Ur Specific [place] (1.005-1.025) Urine Protein (Negative) Urine Ketones (NEGATIVE) Urine Blood (0-5) Jeronimo/ul Urine Nitrite (NEGATIVE) Urine Bilirubin (NEGATIVE) Urine Urobilinogen (0-1) mg/dL Ur Leukocyte Esterase (NEGATIVE) Urine WBC (Auto) (0-5) /HPF Urine RBC (Auto) (0-2) /HPF U Epithel Cells (Auto) (FEW) /HPF Urine Bacteria (Auto) (NEGATIVE) /HPF Urine Culture Reflexed (NO) Urine Glucose (NEGATIVE) mg/dL Urine Opiates Level (NEGATIVE) Ur Methadone (NEGATIVE) Urine Barbiturates (NEGATIVE) Phenytoin (10-20) ug/mL Ur Phencyclidine (PCP) (NEGATIVE) Urine Amphetamine (NEGATIVE) U Benzodiazepine Level (NEGATIVE) Urine Cocaine (NEGATIVE) Urine Marijuana (THC) (NEGATIVE) Influenza Type A Ag (NEGATIVE) Influenza Type B Ag (NEGATIVE) RSV (PCR) (Negative) SARS-CoV-2 (PCR) (NEGATIVE) Accuchecks Date 11/12/21 Time 01:25 Assessment/Plan (1) Hyperglycemia Current Visit: Yes Status: Acute Assessment & Plan: Improved. She will call Dr. Monge to make an appt. Code(s): R73.9 - HYPERGLYCEMIA, UNSPECIFIED (2) Seizure disorder Current Visit: Yes Status: Acute Assessment & Plan: Dilantin level low - increased dose - recheck 1 week. Code(s): G40.909 - EPILEPSY, UNSP, NOT INTRACTABLE, WITHOUT STATUS EPILEPTICUS (3) Weakness Current Visit: Yes Status: Resolved Code(s): R53.1 - WEAKNESS (4) Abdominal pain Current Visit: No Status: Resolved Qualifiers: Abdominal location: generalized Qualified Code(s): R10.84 - Generalized abdominal pain Code(s): R10.9 - UNSPECIFIED ABDOMINAL PAIN (5) Diabetes type 2, uncontrolled Current Visit: No Status: Chronic Qualifiers: Glycemic state: with hyperglycemia Qualified Code(s): E11.65 - Type 2 diabetes mellitus with hyperglycemia Hospital Summary - Hospital Course Hospital Course: Late entry for 11/12/21, 0750 Pt was admitted with weakness and hypoglycemia, improved after admission and discharged to home when feeling better and BS in the 300s. TSH 30, so levothyroxine increased from 125 mcg/d to 137 mcg/ d. Will f/u with PCP in 1 week. - Vitals & Intake/Output Vital Signs: Vital Signs Temperature 97.5 F 11/12/21 11:51 Pulse Rate 92 H 11/12/21 11:51 Respiratory Rate 16 11/12/21 11:51 Blood Pressure 126/70 11/12/21 11:51 O2 Sat by Pulse Oximetry 93 L 11/12/21 11:51 Intake & Output: Intake & Output 11/10/21 11/11/21 11/12/21 11/13/21 11:59 11:59 11:59 11:59 Intake Total 480 Output Total 1000 Balance -520 Weight 103 kg - Lab Result Diagrams: 11/12/21 04:30 11/12/21 04:30 Lab Results-Last 24 Hrs: Lab Results-Last 24 Hours 11/11/21 11/11/21 11/11/21 Range/Units 22:16 22:31 22:31 WBC (4.0-10.5) K/mm3 RBC (4.1-5.4) M/mm3 Hgb (12.0-16.0) gm/dl Hct (35-47) % MCV (78-100) fl MCH (26-32) pg MCHC (32-36) g/dl RDW (11.5-14.0) % Plt Count (150-450) K/mm3 MPV (7.5-11.0) fl Gran % (36.0-66.0) % Eos # (Auto) (0-0.5) Absolute Lymphs (auto) (1.0-4.6) Absolute Monos (auto) (0.0-1.3) Lymphocytes % (24.0-44.0) % Monocytes % (0.0-12.0) % Eosinophils % (0.00-5.0) % Basophils % (0.0-0.4) % Absolute Granulocytes (1.4-6.9) Basophils # (0-0.4) Sodium (137-145) mmol/L Potassium (3.5-5.1) mmol/L Chloride (98-107) mmol/L Carbon Dioxide (22-30) mmol/L Anion Gap (5-15) MEQ/L BUN (7-17) mg/dL Creatinine (0.52-1.04) mg/dL Estimated GFR ML/MIN Glucose (74-106) mg/dL POC Glucometer 502 H* (50 to 500) mg/dL Lactic Acid (0.4-2.0) Calcium (8.4-10.2) mg/dL Total Bilirubin (0.2-1.3) mg/dL AST (14-36) U/L ALT (0-35) U/L Alkaline Phosphatase (38-126) U/L Troponin I (0.000-0.034) ng/mL Serum Total Protein (6.3-8.2) g/dL Albumin (3.5-5.0) g/dL Thyroxine (T4) (5.53-10.96) ug/dL TSH 3rd Generation (0.47-4.68) mIU/L Urine Color STRAW (YELLOW) Urine Appearance CLEAR (CLEAR) Urine pH 5.0 (5-6) Ur Specific [place] 1.025 (1.005-1.025) Urine Protein NEGATIVE (Negative) Urine Ketones NEGATIVE (NEGATIVE) Urine Blood NEGATIVE (0-5) Jeronimo/ul Urine Nitrite NEGATIVE (NEGATIVE) Urine Bilirubin NEGATIVE (NEGATIVE) Urine Urobilinogen NEGATIVE (0-1) mg/dL Ur Leukocyte Esterase NEGATIVE (NEGATIVE) Urine WBC (Auto) NONE (0-5) /HPF Urine RBC (Auto) NONE (0-2) /HPF U Epithel Cells (Auto) NONE (FEW) /HPF Urine Bacteria (Auto) NONE (NEGATIVE) /HPF Urine Culture Reflexed NO (NO) Urine Glucose >=500 (NEGATIVE) mg/dL Urine Opiates Level NEGATIVE (NEGATIVE) Ur Methadone NEGATIVE (NEGATIVE) Urine Barbiturates NEGATIVE (NEGATIVE) Phenytoin (10-20) ug/mL Ur Phencyclidine (PCP) NEGATIVE (NEGATIVE) Urine Amphetamine NEGATIVE (NEGATIVE) U Benzodiazepine Level NEGATIVE (NEGATIVE) Urine Cocaine NEGATIVE (NEGATIVE) Urine Marijuana (THC) NEGATIVE (NEGATIVE) Influenza Type A Ag (NEGATIVE) Influenza Type B Ag (NEGATIVE) RSV (PCR) (Negative) SARS-CoV-2 (PCR) (NEGATIVE) 11/11/21 11/11/21 11/11/21 Range/Units 22:31 22:31 22:31 WBC 12.4 H (4.0-10.5) K/mm3 RBC 4.73 (4.1-5.4) M/mm3 Hgb 14.6 (12.0-16.0) gm/dl Hct 43.9 (35-47) % MCV 92.8 (78-100) fl MCH 30.9 (26-32) pg MCHC 33.3 (32-36) g/dl RDW 12.5 (11.5-14.0) % Plt Count 326 (150-450) K/mm3 MPV 9.7 (7.5-11.0) fl Gran % 74.0 H (36.0-66.0) % Eos # (Auto) 0.09 (0-0.5) Absolute Lymphs (auto) 2.34 (1.0-4.6) Absolute Monos (auto) 0.75 (0.0-1.3) Lymphocytes % 18.8 L (24.0-44.0) % Monocytes % 6.0 (0.0-12.0) % Eosinophils % 0.7 (0.00-5.0) % Basophils % 0.5 (0.0-0.4) % Absolute Granulocytes 9.18 H (1.4-6.9) Basophils # 0.06 (0-0.4) Sodium 129 L (137-145) mmol/L Potassium 4.2 (3.5-5.1) mmol/L Chloride 95 L (98-107) mmol/L Carbon Dioxide 21 L (22-30) mmol/L Anion Gap 18.3 H (5-15) MEQ/L BUN 9 (7-17) mg/dL Creatinine 0.62 (0.52-1.04) mg/dL Estimated GFR > 60.0 ML/MIN Glucose 514 H* (74-106) mg/dL POC Glucometer (50 to 500) mg/dL Lactic Acid (0.4-2.0) Calcium 9.5 (8.4-10.2) mg/dL Total Bilirubin 0.60 (0.2-1.3) mg/dL AST 27 (14-36) U/L ALT 22 (0-35) U/L Alkaline Phosphatase 171 H (38-126) U/L Troponin I (0.000-0.034) ng/mL Serum Total Protein 7.6 (6.3-8.2) g/dL Albumin 4.6 (3.5-5.0) g/dL Thyroxine (T4) (5.53-10.96) ug/dL TSH 3rd Generation 30.600 H (0.47-4.68) mIU/L Urine Color (YELLOW) Urine Appearance (CLEAR) Urine pH (5-6) Ur Specific [place] (1.005-1.025) Urine Protein (Negative) Urine Ketones (NEGATIVE) Urine Blood (0-5) Jeronimo/ul Urine Nitrite (NEGATIVE) Urine Bilirubin (NEGATIVE) Urine Urobilinogen (0-1) mg/dL Ur Leukocyte Esterase (NEGATIVE) Urine WBC (Auto) (0-5) /HPF Urine RBC (Auto) (0-2) /HPF U Epithel Cells (Auto) (FEW) /HPF Urine Bacteria (Auto) (NEGATIVE) /HPF Urine Culture Reflexed (NO) Urine Glucose (NEGATIVE) mg/dL Urine Opiates Level (NEGATIVE) Ur Methadone (NEGATIVE) Urine Barbiturates (NEGATIVE) Phenytoin (10-20) ug/mL Ur Phencyclidine (PCP) (NEGATIVE) Urine Amphetamine (NEGATIVE) U Benzodiazepine Level (NEGATIVE) Urine Cocaine (NEGATIVE) Urine Marijuana (THC) (NEGATIVE) Influenza Type A Ag (NEGATIVE) Influenza Type B Ag (NEGATIVE) RSV (PCR) (Negative) SARS-CoV-2 (PCR) (NEGATIVE) 11/11/21 11/11/21 11/11/21 Range/Units 22:31 22:31 22:31 WBC (4.0-10.5) K/mm3 RBC (4.1-5.4) M/mm3 Hgb (12.0-16.0) gm/dl Hct (35-47) % MCV (78-100) fl MCH (26-32) pg MCHC (32-36) g/dl RDW (11.5-14.0) % Plt Count (150-450) K/mm3 MPV (7.5-11.0) fl Gran % (36.0-66.0) % Eos # (Auto) (0-0.5) Absolute Lymphs (auto) (1.0-4.6) Absolute Monos (auto) (0.0-1.3) Lymphocytes % (24.0-44.0) % Monocytes % (0.0-12.0) % Eosinophils % (0.00-5.0) % Basophils % (0.0-0.4) % Absolute Granulocytes (1.4-6.9) Basophils # (0-0.4) Sodium (137-145) mmol/L Potassium (3.5-5.1) mmol/L Chloride (98-107) mmol/L Carbon Dioxide (22-30) mmol/L Anion Gap (5-15) MEQ/L BUN (7-17) mg/dL Creatinine (0.52-1.04) mg/dL Estimated GFR ML/MIN Glucose (74-106) mg/dL POC Glucometer (50 to 500) mg/dL Lactic Acid (0.4-2.0) Calcium (8.4-10.2) mg/dL Total Bilirubin (0.2-1.3) mg/dL AST (14-36) U/L ALT (0-35) U/L Alkaline Phosphatase (38-126) U/L Troponin I < 0.012 (0.000-0.034) ng/mL Serum Total Protein (6.3-8.2) g/dL Albumin (3.5-5.0) g/dL Thyroxine (T4) 5.93 (5.53-10.96) ug/dL TSH 3rd Generation (0.47-4.68) mIU/L Urine Color (YELLOW) Urine Appearance (CLEAR) Urine pH (5-6) Ur Specific [place] (1.005-1.025) Urine Protein (Negative) Urine Ketones (NEGATIVE) Urine Blood (0-5) Jeronimo/ul Urine Nitrite (NEGATIVE) Urine Bilirubin (NEGATIVE) Urine Urobilinogen (0-1) mg/dL Ur Leukocyte Esterase (NEGATIVE) Urine WBC (Auto) (0-5) /HPF Urine RBC (Auto) (0-2) /HPF U Epithel Cells (Auto) (FEW) /HPF Urine Bacteria (Auto) (NEGATIVE) /HPF Urine Culture Reflexed (NO) Urine Glucose (NEGATIVE) mg/dL Urine Opiates Level (NEGATIVE) Ur Methadone (NEGATIVE) Urine Barbiturates (NEGATIVE) Phenytoin < 3.0 L (10-20) ug/mL Ur Phencyclidine (PCP) (NEGATIVE) Urine Amphetamine (NEGATIVE) U Benzodiazepine Level (NEGATIVE) Urine Cocaine (NEGATIVE) Urine Marijuana (THC) (NEGATIVE) Influenza Type A Ag (NEGATIVE) Influenza Type B Ag (NEGATIVE) RSV (PCR) (Negative) SARS-CoV-2 (PCR) (NEGATIVE) 11/11/21 11/12/21 11/12/21 Range/Units 22:37 00:42 01:15 WBC (4.0-10.5) K/mm3 RBC (4.1-5.4) M/mm3 Hgb (12.0-16.0) gm/dl Hct (35-47) % MCV (78-100) fl MCH (26-32) pg MCHC (32-36) g/dl RDW (11.5-14.0) % Plt Count (150-450) K/mm3 MPV (7.5-11.0) fl Gran % (36.0-66.0) % Eos # (Auto) (0-0.5) Absolute Lymphs (auto) (1.0-4.6) Absolute Monos (auto) (0.0-1.3) Lymphocytes % (24.0-44.0) % Monocytes % (0.0-12.0) % Eosinophils % (0.00-5.0) % Basophils % (0.0-0.4) % Absolute Granulocytes (1.4-6.9) Basophils # (0-0.4) Sodium (137-145) mmol/L Potassium (3.5-5.1) mmol/L Chloride (98-107) mmol/L Carbon Dioxide (22-30) mmol/L Anion Gap (5-15) MEQ/L BUN (7-17) mg/dL Creatinine (0.52-1.04) mg/dL Estimated GFR ML/MIN Glucose (74-106) mg/dL POC Glucometer (50 to 500) mg/dL Lactic Acid 3.3 H 2.1 H (0.4-2.0) Calcium (8.4-10.2) mg/dL Total Bilirubin (0.2-1.3) mg/dL AST (14-36) U/L ALT (0-35) U/L Alkaline Phosphatase (38-126) U/L Troponin I < 0.012 (0.000-0.034) ng/mL Serum Total Protein (6.3-8.2) g/dL Albumin (3.5-5.0) g/dL Thyroxine (T4) (5.53-10.96) ug/dL TSH 3rd Generation (0.47-4.68) mIU/L Urine Color (YELLOW) Urine Appearance (CLEAR) Urine pH (5-6) Ur Specific [place] (1.005-1.025) Urine Protein (Negative) Urine Ketones (NEGATIVE) Urine Blood (0-5) Jeronimo/ul Urine Nitrite (NEGATIVE) Urine Bilirubin (NEGATIVE) Urine Urobilinogen (0-1) mg/dL Ur Leukocyte Esterase (NEGATIVE) Urine WBC (Auto) (0-5) /HPF Urine RBC (Auto) (0-2) /HPF U Epithel Cells (Auto) (FEW) /HPF Urine Bacteria (Auto) (NEGATIVE) /HPF Urine Culture Reflexed (NO) Urine Glucose (NEGATIVE) mg/dL Urine Opiates Level (NEGATIVE) Ur Methadone (NEGATIVE) Urine Barbiturates (NEGATIVE) Phenytoin (10-20) ug/mL Ur Phencyclidine (PCP) (NEGATIVE) Urine Amphetamine (NEGATIVE) U Benzodiazepine Level (NEGATIVE) Urine Cocaine (NEGATIVE) Urine Marijuana (THC) (NEGATIVE) Influenza Type A Ag (NEGATIVE) Influenza Type B Ag (NEGATIVE) RSV (PCR) (Negative) SARS-CoV-2 (PCR) (NEGATIVE) 11/12/21 11/12/21 11/12/21 Range/Units 01:25 01:53 04:30 WBC (4.0-10.5) K/mm3 RBC (4.1-5.4) M/mm3 Hgb (12.0-16.0) gm/dl Hct (35-47) % MCV (78-100) fl MCH (26-32) pg MCHC (32-36) g/dl RDW (11.5-14.0) % Plt Count (150-450) K/mm3 MPV (7.5-11.0) fl Gran % (36.0-66.0) % Eos # (Auto) (0-0.5) Absolute Lymphs (auto) (1.0-4.6) Absolute Monos (auto) (0.0-1.3) Lymphocytes % (24.0-44.0) % Monocytes % (0.0-12.0) % Eosinophils % (0.00-5.0) % Basophils % (0.0-0.4) % Absolute Granulocytes (1.4-6.9) Basophils # (0-0.4) Sodium (137-145) mmol/L Potassium (3.5-5.1) mmol/L Chloride (98-107) mmol/L Carbon Dioxide (22-30) mmol/L Anion Gap (5-15) MEQ/L BUN (7-17) mg/dL Creatinine (0.52-1.04) mg/dL Estimated GFR ML/MIN Glucose (74-106) mg/dL POC Glucometer 313 H (50 to 500) mg/dL Lactic Acid (0.4-2.0) Calcium (8.4-10.2) mg/dL Total Bilirubin (0.2-1.3) mg/dL AST (14-36) U/L ALT (0-35) U/L Alkaline Phosphatase (38-126) U/L Troponin I < 0.012 (0.000-0.034) ng/mL Serum Total Protein (6.3-8.2) g/dL Albumin (3.5-5.0) g/dL Thyroxine (T4) (5.53-10.96) ug/dL TSH 3rd Generation (0.47-4.68) mIU/L Urine Color (YELLOW) Urine Appearance (CLEAR) Urine pH (5-6) Ur Specific [place] (1.005-1.025) Urine Protein (Negative) Urine Ketones (NEGATIVE) Urine Blood (0-5) Jeronimo/ul Urine Nitrite (NEGATIVE) Urine Bilirubin (NEGATIVE) Urine Urobilinogen (0-1) mg/dL Ur Leukocyte Esterase (NEGATIVE) Urine WBC (Auto) (0-5) /HPF Urine RBC (Auto) (0-2) /HPF U Epithel Cells (Auto) (FEW) /HPF Urine Bacteria (Auto) (NEGATIVE) /HPF Urine Culture Reflexed (NO) Urine Glucose (NEGATIVE) mg/dL Urine Opiates Level (NEGATIVE) Ur Methadone (NEGATIVE) Urine Barbiturates (NEGATIVE) Phenytoin (10-20) ug/mL Ur Phencyclidine (PCP) (NEGATIVE) Urine Amphetamine (NEGATIVE) U Benzodiazepine Level (NEGATIVE) Urine Cocaine (NEGATIVE) Urine Marijuana (THC) (NEGATIVE) Influenza Type A Ag NEGATIVE (NEGATIVE) Influenza Type B Ag NEGATIVE (NEGATIVE) RSV (PCR) NEGATIVE (Negative) SARS-CoV-2 (PCR) NEGATIVE (NEGATIVE) 11/12/21 11/12/21 11/12/21 Range/Units 04:30 04:30 07:16 WBC 8.4 (4.0-10.5) K/mm3 RBC 4.41 (4.1-5.4) M/mm3 Hgb 13.7 (12.0-16.0) gm/dl Hct 41.4 (35-47) % MCV 93.9 (78-100) fl MCH 31.1 (26-32) pg MCHC 33.1 (32-36) g/dl RDW 12.5 (11.5-14.0) % Plt Count 314 (150-450) K/mm3 MPV 9.4 (7.5-11.0) fl Gran % 57.5 (36.0-66.0) % Eos # (Auto) 0.12 (0-0.5) Absolute Lymphs (auto) 2.81 (1.0-4.6) Absolute Monos (auto) 0.58 (0.0-1.3) Lymphocytes % 33.5 (24.0-44.0) % Monocytes % 6.9 (0.0-12.0) % Eosinophils % 1.4 (0.00-5.0) % Basophils % 0.7 (0.0-0.4) % Absolute Granulocytes 4.82 (1.4-6.9) Basophils # 0.06 (0-0.4) Sodium 131 L (137-145) mmol/L Potassium 3.8 (3.5-5.1) mmol/L Chloride 99 (98-107) mmol/L Carbon Dioxide 27 (22-30) mmol/L Anion Gap 9.4 (5-15) MEQ/L BUN 10 (7-17) mg/dL Creatinine 0.47 L (0.52-1.04) mg/dL Estimated GFR > 60.0 ML/MIN Glucose 320 H (74-106) mg/dL POC Glucometer 312 H (50 to 500) mg/dL Lactic Acid (0.4-2.0) Calcium 9.2 (8.4-10.2) mg/dL Total Bilirubin 0.40 (0.2-1.3) mg/dL AST 20 (14-36) U/L ALT 18 (0-35) U/L Alkaline Phosphatase 163 H (38-126) U/L Troponin I (0.000-0.034) ng/mL Serum Total Protein 6.7 (6.3-8.2) g/dL Albumin 4.0 (3.5-5.0) g/dL Thyroxine (T4) (5.53-10.96) ug/dL TSH 3rd Generation (0.47-4.68) mIU/L Urine Color (YELLOW) Urine Appearance (CLEAR) Urine pH (5-6) Ur Specific [place] (1.005-1.025) Urine Protein (Negative) Urine Ketones (NEGATIVE) Urine Blood (0-5) Jeronimo/ul Urine Nitrite (NEGATIVE) Urine Bilirubin (NEGATIVE) Urine Urobilinogen (0-1) mg/dL Ur Leukocyte Esterase (NEGATIVE) Urine WBC (Auto) (0-5) /HPF Urine RBC (Auto) (0-2) /HPF U Epithel Cells (Auto) (FEW) /HPF Urine Bacteria (Auto) (NEGATIVE) /HPF Urine Culture Reflexed (NO) Urine Glucose (NEGATIVE) mg/dL Urine Opiates Level (NEGATIVE) Ur Methadone (NEGATIVE) Urine Barbiturates (NEGATIVE) Phenytoin (10-20) ug/mL Ur Phencyclidine (PCP) (NEGATIVE) Urine Amphetamine (NEGATIVE) U Benzodiazepine Level (NEGATIVE) Urine Cocaine (NEGATIVE) Urine Marijuana (THC) (NEGATIVE) Influenza Type A Ag (NEGATIVE) Influenza Type B Ag (NEGATIVE) RSV (PCR) (Negative) SARS-CoV-2 (PCR) (NEGATIVE) 11/12/21 11/12/21 11/12/21 Range/Units 07:43 10:15 11:41 WBC (4.0-10.5) K/mm3 RBC (4.1-5.4) M/mm3 Hgb (12.0-16.0) gm/dl Hct (35-47) % MCV (78-100) fl MCH (26-32) pg MCHC (32-36) g/dl RDW (11.5-14.0) % Plt Count (150-450) K/mm3 MPV (7.5-11.0) fl Gran % (36.0-66.0) % Eos # (Auto) (0-0.5) Absolute Lymphs (auto) (1.0-4.6) Absolute Monos (auto) (0.0-1.3) Lymphocytes % (24.0-44.0) % Monocytes % (0.0-12.0) % Eosinophils % (0.00-5.0) % Basophils % (0.0-0.4) % Absolute Granulocytes (1.4-6.9) Basophils # (0-0.4) Sodium (137-145) mmol/L Potassium (3.5-5.1) mmol/L Chloride (98-107) mmol/L Carbon Dioxide (22-30) mmol/L Anion Gap (5-15) MEQ/L BUN (7-17) mg/dL Creatinine (0.52-1.04) mg/dL Estimated GFR ML/MIN Glucose (74-106) mg/dL POC Glucometer 383 H (50 to 500) mg/dL Lactic Acid (0.4-2.0) Calcium (8.4-10.2) mg/dL Total Bilirubin (0.2-1.3) mg/dL AST (14-36) U/L ALT (0-35) U/L Alkaline Phosphatase (38-126) U/L Troponin I < 0.012 < 0.012 (0.000-0.034) ng/mL Serum Total Protein (6.3-8.2) g/dL Albumin (3.5-5.0) g/dL Thyroxine (T4) (5.53-10.96) ug/dL TSH 3rd Generation (0.47-4.68) mIU/L Urine Color (YELLOW) Urine Appearance (CLEAR) Urine pH (5-6) Ur Specific [place] (1.005-1.025) Urine Protein (Negative) Urine Ketones (NEGATIVE) Urine Blood (0-5) Jeronimo/ul Urine Nitrite (NEGATIVE) Urine Bilirubin (NEGATIVE) Urine Urobilinogen (0-1) mg/dL Ur Leukocyte Esterase (NEGATIVE) Urine WBC (Auto) (0-5) /HPF Urine RBC (Auto) (0-2) /HPF U Epithel Cells (Auto) (FEW) /HPF Urine Bacteria (Auto) (NEGATIVE) /HPF Urine Culture Reflexed (NO) Urine Glucose (NEGATIVE) mg/dL Urine Opiates Level (NEGATIVE) Ur Methadone (NEGATIVE) Urine Barbiturates (NEGATIVE) Phenytoin (10-20) ug/mL Ur Phencyclidine (PCP) (NEGATIVE) Urine Amphetamine (NEGATIVE) U Benzodiazepine Level (NEGATIVE) Urine Cocaine (NEGATIVE) Urine Marijuana (THC) (NEGATIVE) Influenza Type A Ag (NEGATIVE) Influenza Type B Ag (NEGATIVE) RSV (PCR) (Negative) SARS-CoV-2 (PCR) (NEGATIVE) Micro Results-Entire Visit: Accuchecks Date 11/12/21 Time 01:25 - Procedures and Test Procedures and Tests throughout Hospitalization: Therapy Orders & Screens 11/12/21 03:51 EKG REPEAT IN AM Comment: 11/12/21 10:00 Smoking Cessation Education ONCE Comment: Diagnosis: Hyperglycemia Smoking Status: Current every day smoker How long have you smoked: 31 years Have you smoked in the past 12 months: Yes Approximately how many cigarettes per day: 40 Do you dip or chew tobacco: No - Discharge Disposition: Home, Self-Care Condition: Good Prescriptions: New Phenytoin Sod Extended 100 mg* [Dilantin 100 MG] 200 mg PO BID #60 cap Levothyroxine Sodium 137 mcg PO DAILY #30 tablet Continue Omeprazole 40 mg PO DAILY Nitroglycerin 0.4 mg Tablet [Nitrostat 0.4 MG Tablet] 0.4 mg SL Q5MIN PRN MR X 3 PRN PRN Reason: Chest Pain dilTIAZem HCL [Diltiazem HCl] 120 mg PO DAILY Insulin Lispro [Humalog] 35 units SQ AC Gabapentin [Neurontin] 1,200 mg PO TID Oxycodone HCl/Acetaminophen [Percocet 10-325 mg Tablet] 1 each PO Q6HPRN PRN PRN Reason: Pain Carboxymethylcellulose Sodium [Lubricant Eye Drops] 1 drop IO UD PRN PRN Reason: dry eyes Baclofen 10 mg PO TID Insulin Degludec [Tresiba Flextouch U-200] 72 unit SQ DAILY levETIRAcetam [Levetiracetam] 250 mg PO BID Isosorbide Mononitrate 30 mg [Imdur 30 MG] 30 mg PO DAILY Fluoxetine HCl 60 mg PO DAILY Clopidogrel Bisulfate [Clopidogrel] 75 mg PO DAILY Atorvastatin Calcium 80 mg PO HS Metoprolol Tartrate 25 mg [Lopressor 25MG Tab] 25 mg PO BID Aspirin [Aspirin EC] 81 mg PO DAILY Amitriptyline HCl 25 mg [Elavil 25 mg] 25 mg PO QHS methocarbamoL [Methocarbamol] 1,000 mg PO Q6H PRN PRN PRN Reason: Muscle Spasms Pramipexole Di-HCl [Pramipexole Dihydrochloride] 0.25 mg PO QHS Hydroxychloroquine Sulfate 200 mg PO BID Discontinued Levothyroxine Sodium 125 mcg PO DAILY Phenytoin Sodium Extended 200 mg PO HS Outpatient Orders: Dilantin(Phenytoin) Time Frame: 11/19/21, Facility: [facility], Location: LABORATORY Follow up with: SRIDEVI KU [Primary Care Provider] - 11/19/21 2:00 pm
[2021-11-12] MEDS ORDERED: NON-FORMULARY ITEM (Gabapentin [Neurontin] 600 MG Tablet) PO SCH (15:00)
[2021-11-12 16:31] VITALS: BP 109/58; PULSE 82
[2021-11-12] MEDS ORDERED: [UNRECOGNIZED DRUG - OTHER] IM ONE (16:54)
[2021-11-12] MEDS ORDERED: ZOCOR 20MG PO SCH (22:00)
[2021-11-12] MEDS ORDERED: NON-FORMULARY ITEM (Hydroxychloroquine Sulfate [Hydroxychloroquine Sulfate] 200 MG Tablet) PO SCH ×2 (22:00)
[2021-11-12] MEDS ORDERED: NON-FORMULARY ITEM (Pramipexole Di-Hcl [Pramipexole Dihydrochloride] 0.125 MG Tablet) PO SCH (22:00)
[2021-11-12] MEDS ORDERED: ELAVIL 25 MG PO SCH (22:00)
[2021-11-12] MEDS ORDERED: LIPITOR 40MG PO SCH (22:00)
[2021-11-12] MEDS ORDERED: Mirapex 0.5 MG Tablet PO SCH (22:00)
[2021-11-13] MEDS ORDERED: DILTIAZEM HCL 120 MG PO SCH (10:00)
[2021-11-13] MEDS ORDERED: NON-FORMULARY ITEM (Insulin Degludec [Tresiba Flextouch U-200] 200 UNIT/ML Insuln.Pen) SQ SCH (10:00)
[2021-11-13] MEDS ORDERED: NON-FORMULARY ITEM (Omeprazole [Omeprazole] 40 MG Capsule.Dr) PO SCH (10:00)
== END 2021-11-12 19:00 | disposition home or self-care (01) ==
LOC: ED 21:18 → MED SURG 11-12 03:51
PROVIDERS: ADMIT Family Medicine; ATTEND Family Medicine
DX: E11.65 Type 2 diabetes mellitus with hyperglycemia (principal); G40.909 Epilepsy, unspecified, not intractable, without status epilepticus; R53.1 Weakness; R10.84 Generalized abdominal pain; I25.10 Atherosclerotic heart disease of native coronary artery without angina pectoris; E78.5 Hyperlipidemia, unspecified; J44.9 Chronic obstructive pulmonary disease, unspecified; K21.9 Gastro-esophageal reflux disease without esophagitis; E06.3 Autoimmune thyroiditis; I11.0 Hypertensive heart disease with heart failure; N18.9 Chronic kidney disease, unspecified; I25.2 Old myocardial infarction; F17.200 Nicotine dependence, unspecified, uncomplicated; Z79.899 Other long term (current) drug therapy; Z20.828 Contact with and (suspected) exposure to other viral communicable diseases
CPT/HCPCS: 0241U; 36000; 36415; 80053; 80177; 80185; 80307; 81001; 82947; 83036; 83605; 83735; 84436; 84443; 84484; 85025; 93005; 96374; 99285; G0008; G0378; 90686; J1815; J1817; A9270-GY

== ENCOUNTER 2021-12-27 20:09 | Emergency (ER) | payer MEDICARE ==
[2021-12-27 20:20] VITALS: O2SAT 97
--- NOTE | 2021-12-27 21:05 | ERPHSYRPT ---
- History of Present Illness Time Seen by Provider: 12/27/21 20:20 Source: patient Exam Limitations: no limitations Patient Subjective Stated Complaint: yesterday, stomach ache and ache all over. Today, sore throat, weak, tired. Triage Nursing Assessment: pt c/o sore throat, states, "I feel like I have blisters in my throat". Pt c/o achiness all over and very tired. Lungs clear, heart tones reg. Throat red. Pt was Covid + on 11/22/21. Physician History: This is a 46-year-old white female patient of Dr. Med Marti who yesterday noticed cough and diarrhea as well as myalgias and arthralgias. Today her claudio bebo complaint is sore throat and myalgias and arthralgias. She states she "feels like I have blisters in the my throat". "I ache all over". Patient tested positive for Covid on 11/22/2021 despite being vaccinated with Tynt. She has insulin-dependent diabetes, gastroesophageal reflux disease, peripheral neuropathy, fibromyalgia, degenerative disc disease and coronary artery disease. Patient currently smokes a daily. Timing/Duration: yesterday Cough Quality/Degree: no cough Possible Cause: no prior episodes Modifying Factors: Improves With: activity Associated Symptoms: muscle aches, sore throat Allergies/Adverse Reactions: adhesive Allergy (Severe, Verified 12/27/21 20:29) states adhesive from medication patches clonazepam [From Klonopin] Allergy (Severe, Verified 12/27/21 20:29) tizanidine HCl [From Zanaflex] Adverse Reaction (Verified 12/27/21 20:29) "weird sensation in legs" restless legs Home Medications: Gabapentin [Neurontin] 1,200 mg PO TID 07/04/15 [History] Insulin Lispro [Humalog] 35 units SQ AC 07/04/15 [History] Nitroglycerin 0.4 mg Tablet [Nitrostat 0.4 MG Tablet] 0.4 mg SL Q5MIN PRN MR X 3 PRN 07/04/15 [History] Omeprazole 40 mg PO DAILY 07/04/15 [History] dilTIAZem HCL [Diltiazem HCl] 120 mg PO DAILY 07/04/15 [History] Oxycodone HCl/Acetaminophen [Percocet 10-325 mg Tablet] 1 each PO Q6HPRN PRN 05/05/16 [History] Carboxymethylcellulose Sodium [Lubricant Eye Drops] 1 drop IO UD PRN 05/09/16 [History] Baclofen 10 mg PO TID 11/25/16 [History] Insulin Degludec [Tresiba Flextouch U-200] 72 unit SQ DAILY 07/09/17 [History] Atorvastatin Calcium 80 mg PO HS 07/17/20 [History] Clopidogrel Bisulfate [Clopidogrel] 75 mg PO DAILY 07/17/20 [History] Fluoxetine HCl 60 mg PO DAILY 07/17/20 [History] Isosorbide Mononitrate 30 mg [Imdur 30 MG] 30 mg PO DAILY 07/17/20 [History] levETIRAcetam [Levetiracetam] 250 mg PO BID 07/17/20 [History] Amitriptyline HCl 25 mg [Elavil 25 mg] 25 mg PO QHS 11/12/21 [History] Aspirin [Aspirin EC] 81 mg PO DAILY 11/12/21 [History] Hydroxychloroquine Sulfate 200 mg PO BID 11/12/21 [History] Metoprolol Tartrate 25 mg [Lopressor 25MG Tab] 25 mg PO BID 11/12/21 [History] Pramipexole Di-HCl [Pramipexole Dihydrochloride] 0.25 mg PO QHS 11/12/21 [History] methocarbamoL [Methocarbamol] 1,000 mg PO Q6H PRN PRN 11/12/21 [History] Hx Tetanus, Diphtheria Vaccination/Date Given: Yes Hx Influenza Vaccination/Date Given: Yes Hx Pneumococcal Vaccination/Date Given: Yes Immunizations Up to Date: No Travel Risk - International Travel Have you traveled outside of the country in past 3 weeks: No - Coronavirus Screening Are you exhibiting any of the following symptoms?: Yes Symptoms: Fever, Cough: New Onset, Shortness of Breath, Vomiting/Diarrhea, Headaches/Body Aches/Fatigue - Vaccine Status Have you recieved a Covid-19 vaccination: Yes Rodeo Rider: Tynt - Vaccination Dates Date of 2cond Vaccination (if applicable): . Comment: did not get second vaccine - Review of Systems Constitutional: No Symptoms Eyes: No Symptoms Ears, Nose, & Throat: Throat Pain Respiratory: Cough Cardiac: No Symptoms Abdominal/Gastrointestinal: Diarrhea Genitourinary Symptoms: No Symptoms Musculoskeletal: Arthralgias, Myalgias Skin: No Symptoms Neurological: No Symptoms Psychological: No Symptoms Endocrine: No Symptoms Hematologic/Lymphatic: No Symptoms Immunological/Allergic: No Symptoms All Other Systems: Reviewed and Negative - Past Medical History Pertinent Past Medical History: Yes Neurological History: Peripheral Neuropathy ENT History: No Pertinent History Cardiac History: Angina, Coronary Artery Disease, High Cholesterol, Hypertension, Myocardial Infarction (SD) Respiratory History: Bronchitis Endocrine Medical History: Diabetes Type II, Hypothyroidism Musculoskeletal History: Degenerative Disk Disease, Fibromyalgia GI Medical History: GERD, Hernia, Irritable Bowel, Polyps, Other History: No Pertinent History Psycho-Social History: Anxiety, Depression Female Reproductive Disorders: Other Other Medical History: lupus, PCOS, calderón's esophagus, kyra, fasciculation, hiatal hernia - Past Surgical History Past Surgical History: Yes Neuro Surgical History: Other Cardiac: Cardiac Catheterization, Cardiac Stent Respiratory: No Pertinent History Gastrointestinal: Cholecystectomy Genitourinary: No Pertinent History Musculoskeletal: Other Female Surgical History: Section, Hysterectomy, Tubal Ligation, Other Other Surgical History: disc fusion c6-c7, left knee arthroscopy, lymph node biopsy, polyps removed from colon, +HPV, lumbar laminectomy, posterior discectomy - rods, pins, bone graft L4-S1 - Social History Smoking Status: Current every day smoker How long have you smoked: 31 yrs Exposure to second hand smoke: Yes Drug Use: none Patient Lives Alone: No - Female History Hx Now: No - Nursing Vital Signs Nursing Vital Signs: Initial Vital Signs Temperature 98.2 F 12/27/21 20:19 Pulse Rate 99 H 12/27/21 20:19 Respiratory Rate 22 12/27/21 20:19 Blood Pressure 136/66 12/27/21 20:19 O2 Sat by Pulse Oximetry 97 12/27/21 20:19 Pain Scale Pain Intensity 5 - Physical Exam General Appearance: no apparent distress, alert, anxiety Eye Exam: PERRL/EOMI, eyes nml inspection Ears, Nose, Throat Exam: pharyngeal erythema Neck Exam: normal inspection, non-tender, supple, full range of motion Respiratory Exam: normal breath sounds, lungs clear, airway intact, No chest tenderness, No respiratory distress Cardiovascular Exam: regular rate/rhythm, normal heart sounds, normal peripheral pulses Gastrointestinal/Abdomen Exam: soft, normal bowel sounds, No tenderness Pelvic Exam: not done Rectal Exam: not done Back Exam: normal inspection, normal range of motion, No CVA tenderness, No vertebral tenderness Extremity Exam: normal inspection, normal range of motion, pelvis stable Neurologic Exam: alert, oriented x 3, cooperative, dinkey driver II-XII nml as tested, n ormal mood/affect, nml cerebellar function, nml station & gait, sensation nml Skin Exam: normal color, warm, dry Lymphatic Exam: No adenopathy SpO2 Interpretation: normal SpO2: 97 O2 Delivery: Room Air - Course Nursing assessment & vital signs reviewed: Yes Ordered Tests: Active Orders 24 hr Category Date Time Status COVID AG-BINAX NOW RAPID TEST Stat Lab 12/27/21 20:54 Completed INFLUENZA A+B JHON Stat Lab 12/27/21 20:54 Completed Lab/Rad Data: Laboratory Results 12/27/21 12/27/21 12/27/21 Range/Units 20:54 20:54 20:54 Influenza Type A Ag NEGATIVE (NEGATIVE) Influenza Type B Ag NEGATIVE (NEGATIVE) SARS-CoV-2 Ag (Rapid) NEGATIVE (NEGATIVE) Group A Strep Antibody NOT DETECTED (NEGATIVE) - Progress Progress: improved, re-examined Air Movement: good Blood Culture(s) Obtained: No Antibiotics given: No Counseled pt/family regarding: lab results, diagnosis, need for follow-up - Departure Departure Disposition: Home Clinical Impression: Pharyngitis Condition: Stable Critical Care Time: No Referrals: SRIDEVI KU [Primary Care Provider] - Follow up/PCP as directed Additional Instructions: Drink plenty of fluids. Take your medication as prescribed. While taking the prednisone, monitor your blood sugar levels closely. Follow-up with your primary care provider next week for further management. Prescriptions: Hydrocodone/Acetaminophen [Hydrocodone-Acetamn 7.5-325/15] 10 ml PO Q8H PRN PRN #120 ml MDD 30 ml PRN Reason: Cough Prednisone 10 mg [Deltasone 10 mg] 10 mg PO TID #12 tablet
[2021-12-27 21:18] LABS: INFLUENZA A NEGATIVE (NEGATIVE); INFLUENZA B NEGATIVE (NEGATIVE)
[2021-12-27 21:19] LABS: COVID AG -BINAX NOW RAPID TEST NEGATIVE (NEGATIVE)
[2021-12-27] MEDS ORDERED: DELTASONE 20 MG PO ONE (21:32)
[2021-12-27] MEDS ORDERED: HYDROCODONE-ACETAMIN 2.5-108/5 ML SOLUTION PO STA (21:32)
[2021-12-27 21:37] VITALS: BP 123/80; PULSE 88
[2021-12-27] MEDS ORDERED: HYDROCODONE-ACETAMIN 2.5-108/5 ML SOLUTION ONE (21:38)
[2021-12-27] MEDS ORDERED: DELTASONE 20 MG ONE (21:38)
== END 2021-12-27 21:49 | disposition home or self-care (01) ==
LOC: ED 20:09
DX: J02.9 Acute pharyngitis, unspecified (principal); M79.10 Myalgia, unspecified site; R05.1 Acute cough; R19.7 Diarrhea, unspecified; Z86.16 Personal history of COVID-19; I25.10 Atherosclerotic heart disease of native coronary artery without angina pectoris; E78.5 Hyperlipidemia, unspecified; I10 Essential (primary) hypertension; E11.42 Type 2 diabetes mellitus with diabetic polyneuropathy; Z79.4 Long term (current) use of insulin; K21.9 Gastro-esophageal reflux disease without esophagitis; E06.3 Autoimmune thyroiditis; Z72.0 Tobacco use; Z79.891 Long term (current) use of opiate analgesic; Z79.52 Long term (current) use of systemic steroids; Z79.899 Other long term (current) drug therapy
CPT/HCPCS: 87400; 87651; 99000; 99283; A9270-GY

== ENCOUNTER 2022-05-19 18:17 | Emergency (ER) | payer MEDICARE ==
--- NOTE | 2022-05-19 18:50 | ERPHSYRPT ---
- History of Present Illness Time Seen by Provider: 05/19/22 18:30 Source: patient Exam Limitations: no limitations Patient Subjective Stated Complaint: pt here for cough, sob, fever off and on for a month now, she was recently finished macrobid and keflex for a UTI ans was started on tesslon pearles, Triage Nursing Assessment: pt alert, resp easy at rest, face mask in place, skin w/d/p, no cough at present time, no edema noted Physician History: Patient is a 47-year-old female presents to emergency department for evaluation of a cough slight shortness of breath and a fever. Symptoms have been ongoing intermittently for approximately 1 month. Patient states that symptoms have been ongoing since she recovered from COVID. Patient was recently diagnosed with a urinary tract infection and completed a course of Macrobid and Keflex. Patient states the clinic provided her with Tessalon Perles for her cough. Patient concerned that she may be developing a pneumonia. No nausea vomiting or diaphoresis. No chest pain. No fever. Patient voices no other complaints or concerns at this time. Portions of this note were created with voice recognition technology. There may be grammatical, spelling, punctuation or sound alike errors Timing/Duration: intermittent (Intermittent for 1 month) Cough Quality/Degree: moderate, productive cough, sputum Possible Cause: unknown cause Modifying Factors: Improves With: activity Associated Symptoms: denies symptoms, No fever, No chest pain/soreness, No dizziness, No facial pain, No lightheadedness, No sinus infection, No sore throat, No wheezing Allergies/Adverse Reactions: adhesive Allergy (Severe, Verified 05/19/22 18:23) states adhesive from medication patches clonazepam [From Klonopin] Allergy (Severe, Verified 05/19/22 18:23) tizanidine HCl [From Zanaflex] Adverse Reaction (Verified 05/19/22 18:23) "weird sensation in legs" restless legs Home Medications: Gabapentin [Neurontin] 1,200 mg PO TID 07/04/15 [History] Insulin Lispro [Humalog] 60 units SQ AC 07/04/15 [History] Nitroglycerin 0.4 mg Tablet [Nitrostat 0.4 MG Tablet] 0.4 mg SL Q5MIN PRN MR X 3 PRN 07/04/15 [History] Omeprazole 40 mg PO DAILY 07/04/15 [History] dilTIAZem HCL [Diltiazem HCl] 120 mg PO DAILY 07/04/15 [History] Oxycodone HCl/Acetaminophen [Percocet 10-325 mg Tablet] 1 each PO Q6HPRN PRN 05/05/16 [History] Carboxymethylcellulose Sodium [Lubricant Eye Drops] 1 drop IO UD PRN 05/09/16 [History] Baclofen 20 mg PO TID 11/25/16 [History] Insulin Degludec [Tresiba Flextouch U-200] 110 unit SQ DAILY 07/09/17 [History] Atorvastatin Calcium 80 mg PO HS 07/17/20 [History] Clopidogrel Bisulfate [Clopidogrel] 75 mg PO DAILY 07/17/20 [History] Fluoxetine HCl 60 mg PO DAILY 07/17/20 [History] Isosorbide Mononitrate 30 mg [Imdur 30 MG] 30 mg PO DAILY 07/17/20 [History] levETIRAcetam [Levetiracetam] 250 mg PO BID 07/17/20 [History] Amitriptyline HCl 25 mg [Amitriptyline 25 mg Tablet] 25 mg PO QHS 11/12/21 [History] Hydroxychloroquine Sulfate 200 mg PO BID 11/12/21 [History] Metoprolol Tartrate 25 mg [Lopressor 25MG Tab] 25 mg PO BID 11/12/21 [History] Pramipexole Di-HCl [Pramipexole Dihydrochloride] 0.25 mg PO QHS 11/12/21 [History] methocarbamoL [Methocarbamol] 1,000 mg PO Q6H PRN PRN 11/12/21 [History] Benzonatate 1 ea TID 05/19/22 [History] Hx Tetanus, Diphtheria Vaccination/Date Given: Yes Hx Influenza Vaccination/Date Given: No Hx Pneumococcal Vaccination/Date Given: Yes Immunizations Up to Date: Yes Travel Risk - International Travel Have you traveled outside of the country in past 3 weeks: No - Coronavirus Screening Are you exhibiting any of the following symptoms?: Yes Symptoms: Fever, Cough: New Onset, Shortness of Breath Close contact with a COVID-19 positive Pt in past 14-21 Days: No - Vaccine Status Have you recieved a Covid-19 vaccination: Yes 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 Comment: did not get second vaccine - Review of Systems Constitutional: No Symptoms, No Fever, No Chills Eyes: No Symptoms Ears, Nose, & Throat: No Symptoms Respiratory: No Symptoms, No Cough, No Dyspnea Cardiac: No Symptoms, No Chest Pain, No Edema, No Syncope Abdominal/Gastrointestinal: No Symptoms, No Abdominal Pain, No Nausea, No Vomiting, No Diarrhea Genitourinary Symptoms: No Symptoms, No Dysuria Musculoskeletal: No Symptoms, No Back Pain, No Neck Pain Skin: No Symptoms, No Rash Neurological: No Symptoms, No Dizziness, No Focal Weakness, No Sensory Changes Psychological: No Symptoms Endocrine: No Symptoms Hematologic/Lymphatic: No Symptoms Immunological/Allergic: No Symptoms All Other Systems: Reviewed and Negative - Past Medical History Pertinent Past Medical History: Yes Neurological History: Peripheral Neuropathy ENT History: No Pertinent History Cardiac History: Angina, Coronary Artery Disease, High Cholesterol, Hypertension, Myocardial Infarction ([place]) Respiratory History: Bronchitis Endocrine Medical History: Diabetes Type II, Hypothyroidism Musculoskeletal History: Degenerative Disk Disease, Fibromyalgia GI Medical History: GERD, Hernia, Irritable Bowel, Polyps, Other History: No Pertinent History Psycho-Social History: Anxiety, Depression Female Reproductive Disorders: Other Other Medical History: lupus, PCOS, calderón's esophagus, kyra, fasciculation, hiatal hernia - Past Surgical History Past Surgical History: Yes Neuro Surgical History: Other Cardiac: Cardiac Catheterization, Cardiac Stent Respiratory: No Pertinent History Gastrointestinal: Cholecystectomy Genitourinary: No Pertinent History Musculoskeletal: Other Female Surgical History: Section, Hysterectomy, Tubal Ligation, Other Other Surgical History: disc fusion c6-c7, left knee arthroscopy, lymph node biopsy, polyps removed from colon, +HPV, lumbar laminectomy, posterior discectomy - rods, pins, bone graft L4-S1 - Social History Smoking Status: Current every day smoker How long have you smoked: 31 yrs Exposure to second hand smoke: Yes Drug Use: none Patient Lives Alone: No - Female History Hx Last Menstrual Period: post Hx Now: No - Nursing Vital Signs Nursing Vital Signs: Initial Vital Signs Temperature 97.4 F 05/19/22 18:26 Pulse Rate 110 H 05/19/22 18:26 Respiratory Rate 18 05/19/22 18:26 Blood Pressure 167/98 07/11/22 18:26 O2 Sat by Pulse Oximetry 97 05/19/22 18:26 Pain Scale Pain Intensity 4 - Physical Exam General Appearance: no apparent distress, alert Eye Exam: PERRL/EOMI, eyes nml inspection Ears, Nose, Throat Exam: normal ENT inspection, TMs normal, pharynx normal, moist mucous membranes Neck Exam: normal inspection, non-tender, supple, full range of motion Respiratory Exam: normal breath sounds, lungs clear, airway intact, other (Obvious cough. Clear lung grant. No respiratory distress. Intact airway), No respiratory distress Cardiovascular Exam: regular rate/rhythm, normal heart sounds, normal peripheral pulses Gastrointestinal/Abdomen Exam: soft, normal bowel sounds, No tenderness, No distention Back Exam: normal inspection, No CVA tenderness, No vertebral tenderness Extremity Exam: normal inspection, normal range of motion Neurologic Exam: alert, oriented x 3, cooperative, ell tutor II-XII nml as tested, normal mood/affect, sensation nml, No motor deficits Skin Exam: normal color, warm, dry, No rash Lymphatic Exam: No adenopathy SpO2 Interpretation: normal SpO2: 96 O2 Delivery: Room Air - Course Nursing assessment & vital signs reviewed: Yes - Radiology Exams Chest X-ray Interpretation: Interpreted by me (Normal heart lungs and bony thorax. Cervical fusion hardware observed) Ordered Tests: Active Orders 24 hr Category Date Time Status CHEST 1 VIEW (PORTABLE) Stat Exams 05/19/22 18:40 Taken - Progress Progress: improved Air Movement: good Progress Note: Patient reassessed. Breathing treatment improved patient's symptoms. Chest x- ray essentially nonremarkable. However atypical pneumonia may not reflect well on x-ray. We will treat her with a Z-Sergo. A prescription for a Z-Sergo was forwarded the patient's pharmacy. A prescription for an albuterol inhaler and prednisone was also forwarded to patient's pharmacy. Patient agrees to follow-u p with primary care doctor within 48 hours. She voices no other complaints or concerns at this time. Portions of this note were created with voice recognition technology. There may be grammatical, spelling, punctuation or sound alike errors 05/19/22 19:05 Blood Culture(s) Obtained: No Antibiotics given: Yes Counseled pt/family regarding: diagnosis, need for follow-up, rad results - Departure Departure Disposition: Home Clinical Impression: Productive cough, Bronchitis Condition: Stable Critical Care Time: No Referrals: SRIDEVI KU [Primary Care Provider] - Follow up/PCP as directed Additional Instructions: Discharge/Care Plan HATTIE BOWLING was seen on 05/19/22 in the Emergency Room. The patient was counseled regarding Diagnosis,Lab results, Imaging studies, need for follow up and when to return to the Emergency Room. Prescriptions given: Discharge Note I have spoken with the patient and/or caregivers. I have explained the patient's condition, diagnosis and treatment plan based on the information available to me at this time. I have answered the patient's and/or caregiver's questions and addressed any concerns. The patient and/or caregivers have as good understanding of the patient's diagnosis, condition and treatment plan as can be expected at this point. The vital signs have been stable. The patient's condition is stable and appropriate for discharge from the emergency department. The patient will pursue further outpatient evaluation with the primary care physician or other designated or consulting physician as outlined in the discharge instructions. The patient and/or caregivers are agreeable to this plan of care and follow-up instructions have been explained in detail. The patient and/or caregivers have received these instruction. The patient/and or caregivers are aware that any significant change in condition or worsening of symptoms should prompt an immediate return to this or the closest emergency department or call 911. Prescriptions: Prednisone 10 mg [Deltasone 10 mg] 10 mg PO TID #12 tablet Prednisone 10 mg [Deltasone 10 mg] 40 mg PO DAILY 3 Days #12 tablet Albuterol 8 gm Mdi Hfa [Ventolin Hfa MDI] 8 gm IH Q4H #1 Azithromycin 250 mg [Zithromax 250 MG TABLET] 250 mg PO ZPACK #6 tablet
[2022-05-19] MEDS ORDERED: solu-MEDROL 125 MG, Sterile H2O 10 ml 2 ML IV ONE ×2 (19:01)
[2022-05-19] MEDS ORDERED: DUONEB 0.5-3 MG/3 ml Neb IH ONE ×2 (19:01→19:39)
[2022-05-19] MEDS ORDERED: Sterile H2O 10 ml IJ ONE (19:27)
[2022-05-19] MEDS ORDERED: solu-MEDROL ONE (19:27)
[2022-05-19 20:11] VITALS: BP 160/90; PULSE 89; O2SAT 97
--- NOTE | 2022-05-20 08:43 | XRAY ---
Indication: Severe cough. Comparison: July 17, 2020. Portable chest again demonstrates normal heart and lungs. Bony thorax intact again with lower cervical fusion hardware. No new/acute findings.
== END 2022-05-19 20:11 | disposition home or self-care (01) ==
LOC: ED 18:17
DX: J40 Bronchitis, not specified as acute or chronic (principal); R05.9 Cough, unspecified; R06.02 Shortness of breath; R50.9 Fever, unspecified; E78.5 Hyperlipidemia, unspecified; I10 Essential (primary) hypertension; E11.42 Type 2 diabetes mellitus with diabetic polyneuropathy; Z72.0 Tobacco use; Z79.02 Long term (current) use of antithrombotics/antiplatelets; Z79.4 Long term (current) use of insulin; Z79.899 Other long term (current) drug therapy; Z28.311 Partially vaccinated for COVID-19; Z86.16 Personal history of COVID-19; Z79.52 Long term (current) use of systemic steroids
CPT/HCPCS: 71045; 94640; 96374; 99283; J2930; A9270-GY

== ENCOUNTER 2022-10-08 16:25 | Observation (INO) | payer MEDICARE ==
[2022-10-08] MEDS ORDERED: Lasix 40 MG/4 ML IV PRN (16:56)
[2022-10-08] MEDS ORDERED: HUMALOG SQ PRN (17:00)
[2022-10-08] MEDS: MORPHINE SULFATE 4 MG INJ IV PRN ×2 (17:02→21:18)
[2022-10-08] MEDS: Lactated Ringers 1,000 ML IV SCH (17:02)
[2022-10-08] MEDS ORDERED: FLUZONE QUAD 2022-2023 SYRINGE IM ONE (17:03)
[2022-10-08 17:08] LABS: Absolute Neutrophil Ct (ANC) 6.04 x10^3/uL (1.4-6.9); Basophil (Absolute #) 0.09 x10^3/uL (0-0.4); Eosinophil % 2.4 % (0.00-5.0); Eosinophil (Absolute #) 0.25 x10^3/uL (0-0.5); Hemoglobin 12.6 g/dL (12.0-16.0); Lymphocyte (Absolute #) 2.97 x10^3/uL (1.0-4.6); Lymphocytes % 29.1 % (24.0-44.0); Mean Corpuscular Hemoglobin 29.7 pg (26-32); Mean Corpuscular Hgb Concent. 32.3 g/dL (32-36); Mean Platelet Volume 9.3 fL (7.5-11.0); Monocyte (Absolute #) 0.81 x10^3/uL (0.0-1.3); Monocytes % 7.9 % (0.0-12.0); Neutrophil % 59.2 % (36.0-66.0); Platelet Count 346 x10^3/uL (150-450); Red Blood Count 4.24 x10^6/uL (4.1-5.4); Red Cell Distribution Width 12.7 % (11.5-14.0); White Blood Count 10.2 x10^3/uL (4.0-10.5)
[2022-10-08 17:31] LABS: ALBUMIN 4.4 g/dL (3.5-5.0); ALKALINE PHOSPHATASE 117 U/L (38-126); AMYLASE 61 U/L (30-110); ANION GAP 10.5 MEQ/L (5-15); BLOOD UREA NITROGEN 8 mg/dL (7-17); CHLORIDE 104 mmol/L (98-107); Calcium 9.4 mg/dL (8.4-10.2); Carbon Dioxide 28 mmol/L (22-30); Creatinine 1 0.53 mg/dL (0.52-1.04); EST GLOMERULAR FILTRATION RATE > 60.0 ML/MIN; Glucose 92 mg/dL (74-106); LIPASE 39 U/L (23-300); NT PRO BNP 218 pg/mL (0-450); Potassium 3.8 mmol/L (3.5-5.1); SGOT/AST 18 U/L (14-36); SGPT/ALT 17 U/L (0-35); SODIUM 138 mmol/L (137-145); Total Protein 7.2 g/dL (6.3-8.2)
[2022-10-08 18:20] LABS: INFLUENZA A NEGATIVE (NEGATIVE); INFLUENZA B NEGATIVE (NEGATIVE); RESPIRATORY SYNCTIAL VIRUS NEGATIVE (Negative); SARS-CoV-2 Xpert Express NEGATIVE (NEGATIVE)
[2022-10-08] MEDS ORDERED: HYDROXYCHLOROQUINE SULFATE 200 MG PO ONE (22:00)
[2022-10-08] MEDS ORDERED: Mirapex 0.5 MG Tablet PO ONE (22:00)
[2022-10-08] MEDS ORDERED: AMITRIPTYLINE 25 MG TABLET PO SCH (22:00)
[2022-10-08] MEDS ORDERED: Pepcid 20 MG PO ONE (22:00)
[2022-10-08] MEDS ORDERED: LIORESAL 10 MG PO ONE (22:00)
[2022-10-08] MEDS ORDERED: AMITRIPTYLINE 25 MG TABLET PO ONE (22:00)
[2022-10-08] MEDS ORDERED: NEURONTIN PO ONE (22:00)
[2022-10-08] MEDS ORDERED: ZOCOR 20MG PO SCH (22:00)
[2022-10-08] MEDS ORDERED: Lopressor 25MG Tab PO ONE (22:00)
[2022-10-08] MEDS ORDERED: ZOCOR 20MG PO ONE (22:00)
[2022-10-09] MEDS: MORPHINE SULFATE 4 MG INJ IV PRN ×4 (02:53→19:59)
--- NOTE | 2022-10-09 08:57 | XRAY ---
Exam: CT of the abdomen and pelvis without IV contrast from 10/08/2022. CTDI: 24.49 mGy Comparison: CT of the abdomen and pelvis without IV contrast from 07/17/2020. Indication: 47-year-old female with history of right-sided abdominal/back pain for 3 days; nausea and dizziness; weight gain; urinary retention; dyspnea on exertion; lower extremity edema. The patient also has a history of 4 cardiac stents, cholecystectomy, and hysterectomy. Technique: Non-IV contrast axial images were obtained through the abdomen and pelvis. Reconstructed coronal and sagittal images were created and reviewed. No oral contrast was given. Findings: The transverse heart size appears normal. Minimal coronary calcification or stents are seen on each side of midline. There is a tiny calcified granuloma at the right lung base representing no change. Minimal posterior dependent compression atelectatic changes are seen at the right lung base. No infiltrates are identified. There is equivocal evidence of a minimal hiatal hernia on axial image #13. The liver again appears mildly enlarged with the right lobe measuring at least 20 cm in greatest craniocaudal dimension. I don't believe this represents a significant interval change. Assessment of the solid organs is limited without the use of IV contrast. I see no gross hepatic mass or intrahepatic biliary duct distention. Surgical clips consistent with prior cholecystectomy are noted. The spleen is of normal size and reveals no mass. Some vascular calcification is seen within the splenic artery in the left upper quadrant representing no change. The pancreas reveals no mass, pancreatic duct distention, or calcifications. I cannot completely exclude some mild atrophy of the pancreas. Correlate with laboratory data. The adrenal glands are of normal size and configuration. The kidneys reveal no calcifications or hydronephrosis. No gross renal mass is seen. The kidneys appear of normal size. The ureters appear of normal diameter and reveal no ureterolith. No urinary bladder stone is seen. Mild to moderate atherosclerotic vascular calcification is seen within the abdominal aorta, superior mesenteric artery, and iliac arteries. I see no evidence of abdominal aortic aneurysm. Some small shotty periaortic lymph nodes are seen which are stable and probably not significant. I see no evidence of ventral abdominal hernia. No free intraperitoneal air is seen. There is no evidence of bowel distention or obstruction. No definite bowel wall thickening is seen. Moderate retained fecal residue is seen within the cecum, ascending colon, transverse colon, and descending colon. The appendix is seen within the right lower quadrant and appears unremarkable. Within the pelvis, the urinary bladder is partially distended and appears grossly unremarkable. The uterus is surgically absent. The pelvic adnexa are otherwise unremarkable without evidence of abnormal mass or lymphadenopathy. No free intraperitoneal fluid is seen. I again see considerable arteriosclerotic vascular calcification within branches of the iliac arteries and right common femoral artery. Some calcified phleboliths are seen within the lower pelvis. The soft tissues within the lower abdomen and pelvis reveals some hazy increased density which may relate to mild anasarca. I don't believe this is significantly changed from 07/17/2020. A calcified injection granulomas seen within each buttock. There has been interval laminectomies at L4-L5 with surgical fusion of L4-S1 with posterior orthopedic stabilization rods and 6 pedicle screws. Some artifactual streaking is seen at this level on the axial images. A spacer device is seen at L4-L5. There is a suggestion of slight anterolisthesis of L4 over L5. Some vacuum disc phenomena is seen at L5-S1 suggesting some degenerative disc disease at this level. Minimal degenerative changes are seen within the lower thoracic spine. No acute compression fracture or aggressive bone lesion is seen. Impression: 1. I see no evidence of renal/ureteral calculi, hydronephrosis, or urinary tract obstruction. 2. I again see moderate colonic fecal stasis representing no significant change from 07/17/2020. 3. There is no evidence of bowel obstruction, definite bowel wall thickening, or appendicitis. 4. I believe there is mild hepatomegaly with the right lobe measuring 20 cm in craniocaudal dimension. This is unchanged. 5. Moderate atherosclerotic vascular disease/calcification. 6. Status post cholecystectomy and hysterectomy. 7. Interval laminectomies at L4-L5 with posterior surgical hardware fusion of L4-S1, as discussed above. 8. There appears to be mild soft tissue anasarca within the lower abdomen and pelvis. I believe this is unchanged. No other acute process is seen.
--- NOTE | 2022-10-09 09:21 | PCM.HP.ADD ---
Addendum to History & Physical - History & Physical Addendum Addendum to History & Physical: This certifies that the History & Physical in the electronic chart reflects the current health status of the patient. If there are changes in the H&P these changes/exceptions are listed as follows.
--- NOTE | 2022-10-09 09:49 | XRAY ---
Exam: Two-view chest from 10/09/2022. Comparison: AP upright portable chest film from 05/19/2022. Indication: 47-year-old female with abdominal pain. Findings: The heart size and contour are normal. There appear to be at least a couple coronary artery stents overlying the upper left aspect of the heart. Mild unfolding of the thoracic aorta is seen. The harsha and mediastinal structures appear unremarkable. There appears to be some minimal atelectasis at the lateral right lung base on the PA film. Otherwise, the lungs are well inflated and reveal no air space disease, vascular congestion, pneumothorax, or pleural fluid. No acute osseous process is seen. There is evidence of prior anterior cervical fusion at C6-C7 with a metallic plate and 4 adjoining screws. Impression: 1. Minimal focal atelectasis at the lateral right lung base on the PA film only. 2. Otherwise, no acute cardiopulmonary disease is seen.
[2022-10-09] MEDS ORDERED: CARBOXYMETHYLCELLULOSE SODIUM IO PRN (10:06)
[2022-10-09] MEDS ORDERED: Nitrostat 0.4 MG Tablet SL PRN (10:06)
[2022-10-09] MEDS ORDERED: OXYCODONE-ACETAMINOPHEN 10-325 PO PRN (10:06)
[2022-10-09] MEDS ORDERED: Artificial Tears 15 ML OP PRN (10:24)
[2022-10-09] MEDS ORDERED: SYNTHROID 25 MCG PO SCH (10:45)
[2022-10-09] MEDS ORDERED: SYNTHROID 112 MCG PO SCH (10:45)
--- NOTE | 2022-10-09 10:51 | XRAY ---
Exam: Renal ultrasound from 10/09/2022. Comparison: CT of the abdomen and pelvis without IV contrast from 10/08/2022. Indication: 47-year-old female with history of right-sided abdominal pain. Findings: The right kidney measures 12.0 cm in length, 5.2 cm in depth, and 4.95 cm in width. No solid renal mass, hydronephrosis, or significant cyst is seen. Unremarkable color blood flow is seen. Thickness of the renal cortex measures 1.5 cm at the lower pole on a longitudinal image. Renal cortical echogenicity and contour appear unremarkable. The left kidney measures 12.1 cm in length, 6.05 cm in depth, and 4.9 cm in width. No solid renal mass, hydronephrosis, or significant cyst is seen. Unremarkable color blood flow is seen. Thickness of the renal cortex measures 1.9 cm at the lower pole on a longitudinal image. Renal cortical echogenicity and contour appear unremarkable. The urinary bladder is partially distended measuring 7.0 cm x 3.6 cm x 4.9 cm yielding a urinary bladder volume of 64.4 mL. No gross abnormality of the urinary bladder is seen. No ureteral jets were seen with color flow imaging. The patient was subsequent instructed to void. The postvoid urinary bladder measures 1.8 cm x 2.6 cm x 2.8 cm yielding a postvoid volume of 7.0 mL. Impression: 1. No significant abnormality of either kidney or the urinary bladder is seen. See above..
[2022-10-09] MEDS ORDERED: Protonix 40MG Tablet PO SCH (11:00)
[2022-10-09] MEDS ORDERED: PLAVIX Tablet PO SCH (11:00)
[2022-10-09] MEDS ORDERED: Prozac 20 MG PO SCH (11:00)
[2022-10-09] MEDS ORDERED: Cardizem CD PO SCH (11:00)
[2022-10-09] MEDS ORDERED: Imdur 30 MG PO SCH (11:00)
[2022-10-09] MEDS: Lopressor 25MG Tab PO SCH ×2 (11:21→22:06)
[2022-10-09] MEDS: Neurontin PO SCH ×3 (11:21→22:06)
[2022-10-09] MEDS ORDERED: Ventolin Hfa MDI IH PRN (11:22)
[2022-10-09] MEDS: LIORESAL 10 MG PO SCH ×3 (11:22→22:07)
[2022-10-09] MEDS: HUMALOG SQ SCH ×2 (11:23→16:45)
[2022-10-09] MEDS: NON-FORMULARY ITEM (Hydroxychloroquine Sulfate [Hydroxychloroquine Sulfate] 200 MG Tablet) PO SCH ×2 (11:23→22:07)
[2022-10-09] MEDS ORDERED: NON-FORMULARY ITEM (Insulin Lispro 1 UNIT Ml) SQ SCH (11:30)
[2022-10-09] MEDS ORDERED: VENTOLIN COMMON CANISTER IH PRN (11:34)
[2022-10-09 12:53] LABS: Appearance CLEAR (CLEAR)
[2022-10-09 12:54] LABS: Bilirubin NEGATIVE (NEGATIVE); Dipstick done @ ? MAIN LAB; Glucose NEGATIVE (NEGATIVE); Ketones NEGATIVE (NEGATIVE); Nitrite NEGATIVE (NEGATIVE); Protein,Urine Dip NEGATIVE (Negative); RBC NEGATIVE Ery/ul (0-5); Specific Gravity 1.025 (1.005-1.025); Urobilinogen 1 mg/dL (0-1)
[2022-10-09 13:06] LABS: Bacteria RARE /HPF (NEGATIVE); Epithelial Cells RARE /HPF (FEW); Mucus SLIGHT /HPF (NEGATIVE); Urine Cultured Indicated? NO; WBC 0-2 /HPF (0-5)
--- NOTE | 2022-10-09 13:06 | ECHO ---
Transthoracic echocardiographic examination and color Doppler was done on 10/09/2022. INDICATION: Shortness of breath, peripheral edema, hypertension. IMPRESSION: 1) NO REGIONAL WALL MOTION ABNORMALITY. ESTIMATED GLOBAL LEFT VENTRICULAR EJECTION FRACTION BETWEEN 60 AND 65%. 2) TRACE MITRAL REGURGITATION. 3) TRACE TRICUSPID REGURGITATION. RIGHT VENTRICULAR SYSTOLIC PRESSURE OF 28 MM OF MERCURY. 4) LEFT VENTRICULAR HYPERTROPHY. 5) LEFT VENTRICLE DIASTOLIC DYSFUNCTION. The left ventricle is visualized and demonstrated adequate motion of all the segments. Estimated global left ventricular ejection fraction between 60 and 65%. There is mild left ventricular hypertrophy. The mitral valve is seen and this opens adequately. There is trace mitral regurgitation. Left atrium is normal. Tissue Doppler study of the lateral mitral annulus is suggestive of left ventricle diastolic dysfunction. The aortic valve opens adequately. There is no significant gradient across the left ventricular outflow tract. The right side chambers are normal with normal right ventricular contractility. There is trace tricuspid regurgitation. The right ventricular systolic pressure of 28 mm of Mercury.
[2022-10-09] MEDS: Lactated Ringers 1,000 ML IV SCH (14:20)
[2022-10-09] MEDS ORDERED: NON-FORMULARY ITEM (Gabapentin [Neurontin] 600 MG Tablet) PO SCH (15:00)
--- NOTE | 2022-10-09 17:23 | PCM.NOTE ---
Date and Time: 10/09/221717 Subjective Assessment: Pt seen this morning. Still having abd pain. Slept well. Pain 4/10 with pain meds, worse when no pain meds. - Review of Systems Constitutional: No Fever Ears, Nose, & Throat: Hoarse Objective Exam General Appearance: no apparent distress, alert, obese Neurologic Exam: oriented x 3, cooperative Skin Exam: warm, dry, pale (as usual) Eye Exam: eyes nml inspection Ears, Nose, Throat Exam: moist mucous membranes Neck Exam: normal inspection Respiratory Exam: normal breath sounds, lungs clear, No crackles/rales, No rhonchi, No wheezing Cardiovascular Exam: regular rate/rhythm, normal heart sounds, No murmur Gastrointestinal/Abdomen Exam: soft, normal bowel sounds, tenderness (RLQ, RUQ) Extremity Exam: No pedal edema, No swelling Back Exam: normal inspection, No rash OBJECTIVE DATA Vital Signs: Vital Signs - 24 hr Temp Pulse Resp BP Pulse Ox 10/09/22 16:00 98.0 F 74 16 119/61 95 10/09/22 11:39 97.9 F 75 16 129/58 95 10/09/22 07:07 97.6 F 85 16 125/76 93 L 10/09/22 03:41 97.5 F 80 17 143/71 95 10/08/22 23:49 98.0 F 82 16 129/61 91 L 10/08/22 20:00 97.7 F 76 16 115/66 97 Pain Assessment - Last Documented Pain Intensity 2 Pain Scale Used 0-10 Pain Scale Intake and Output: Intake & Output 10/07/22 10/08/22 10/09/22 10/10/22 11:59 11:59 11:59 11:59 Intake Total 227 Output Total 3200 Balance -2973 Weight 107.5 kg Lab Results: Lab Results-Last 24 Hours 10/08/22 10/08/22 10/08/22 Range/Units 17:00 17:00 17:00 WBC 10.2 (4.0-10.5) x10^3/uL RBC 4.24 (4.1-5.4) x10^6/uL Hgb 12.6 (12.0-16.0) g/dL Hct 39.0 (35-47) % MCV 92.0 (78-100) fL MCH 29.7 (26-32) pg MCHC 32.3 (32-36) g/dL RDW 12.7 (11.5-14.0) % Plt Count 346 (150-450) x10^3/uL MPV 9.3 (7.5-11.0) fL Gran % 59.2 (36.0-66.0) % Immature Gran % (Auto) 0.5 H (0.00-0.4) % Nucleat RBC Rel Count 0.0 (0.00-0.1) % Eos # (Auto) 0.25 (0-0.5) x10^3/uL Immature Gran # (Auto) 0.05 H (0.00-0.03) x10^3u/L Absolute Lymphs (auto) 2.97 (1.0-4.6) x10^3/uL Absolute Monos (auto) 0.81 (0.0-1.3) x10^3/uL Absolute Nucleated RBC 0.00 (0.00-0.01) x10^3u/L Lymphocytes % 29.1 (24.0-44.0) % Monocytes % 7.9 (0.0-12.0) % Eosinophils % 2.4 (0.00-5.0) % Basophils % 0.9 (0.0-0.4) % Absolute Granulocytes 6.04 (1.4-6.9) x10^3/uL Basophils # 0.09 (0-0.4) x10^3/uL Sodium 138 (137-145) mmol/L Potassium 3.8 (3.5-5.1) mmol/L Chloride 104 (98-107) mmol/L Carbon Dioxide 28 (22-30) mmol/L Anion Gap 10.5 (5-15) MEQ/L BUN 8 (7-17) mg/dL Creatinine 0.53 (0.52-1.04) mg/dL Estimated GFR > 60.0 ML/MIN Glucose 92 (74-106) mg/dL POC Glucometer (74 to 106) mg/dL Hemoglobin A1c (4.5-6.0) % Calcium 9.4 (8.4-10.2) mg/dL Total Bilirubin 0.30 (0.2-1.3) mg/dL AST 18 (14-36) U/L ALT 17 (0-35) U/L Alkaline Phosphatase 117 (38-126) U/L Troponin I 0.037 H* (0.000-0.034) ng/mL NT-Pro-B Natriuret Pep 218 (0-450) pg/mL Serum Total Protein 7.2 (6.3-8.2) g/dL Albumin 4.4 (3.5-5.0) g/dL Amylase 61 (30-110) U/L Lipase 39 (23-300) U/L Urinalys Dipstick Clnc Urine Color (YELLOW) Urine Appearance (CLEAR) Urine pH (5-6) Ur Specific [place] (1.005-1.025) POC Urine Protein Conf (Negative) Urine Ketones (NEGATIVE) Urine Nitrite (NEGATIVE) Urine Bilirubin (NEGATIVE) Urine Urobilinogen (0-1) mg/dL Urine Leukocytes (NEGATIVE) Urine WBC (Auto) (0-5) /HPF Urine RBC (Auto) U Epithel Cells (Auto) (FEW) /HPF Urine Bacteria (Auto) (NEGATIVE) /HPF Urine RBC (0-5) [place]/ul Urine Mucus (Auto) (NEGATIVE) /HPF Ur Culture Indicated? Urine Glucose (NEGATIVE) mg/dL Influenza Type A Ag (NEGATIVE) Influenza Type B Ag (NEGATIVE) RSV (PCR) (Negative) SARS-CoV-2 (PCR) (NEGATIVE) 10/08/22 10/08/22 10/08/22 Range/Units 17:00 20:32 Unknown WBC (4.0-10.5) x10^3/uL RBC (4.1-5.4) x10^6/uL Hgb (12.0-16.0) g/dL Hct (35-47) % MCV (78-100) fL MCH (26-32) pg MCHC (32-36) g/dL RDW (11.5-14.0) % Plt Count (150-450) x10^3/uL MPV (7.5-11.0) fL Gran % (36.0-66.0) % Immature Gran % (Auto) (0.00-0.4) % Nucleat RBC Rel Count (0.00-0.1) % Eos # (Auto) (0-0.5) x10^3/uL Immature Gran # (Auto) (0.00-0.03) x10^3u/L Absolute Lymphs (auto) (1.0-4.6) x10^3/uL Absolute Monos (auto) (0.0-1.3) x10^3/uL Absolute Nucleated RBC (0.00-0.01) x10^3u/L Lymphocytes % (24.0-44.0) % Monocytes % (0.0-12.0) % Eosinophils % (0.00-5.0) % Basophils % (0.0-0.4) % Absolute Granulocytes (1.4-6.9) x10^3/uL Basophils # (0-0.4) x10^3/uL Sodium (137-145) mmol/L Potassium (3.5-5.1) mmol/L Chloride (98-107) mmol/L Carbon Dioxide (22-30) mmol/L Anion Gap (5-15) MEQ/L BUN (7-17) mg/dL Creatinine (0.52-1.04) mg/dL Estimated GFR ML/MIN Glucose (74-106) mg/dL POC Glucometer 100 (74 to 106) mg/dL Hemoglobin A1c 9.86 H (4.5-6.0) % Calcium (8.4-10.2) mg/dL Total Bilirubin (0.2-1.3) mg/dL AST (14-36) U/L ALT (0-35) U/L Alkaline Phosphatase (38-126) U/L Troponin I (0.000-0.034) ng/mL NT-Pro-B Natriuret Pep (0-450) pg/mL Serum Total Protein (6.3-8.2) g/dL Albumin (3.5-5.0) g/dL Amylase (30-110) U/L Lipase (23-300) U/L Urinalys Dipstick Clnc Urine Color (YELLOW) Urine Appearance (CLEAR) Urine pH (5-6) Ur Specific [place] (1.005-1.025) POC Urine Protein Conf (Negative) Urine Ketones (NEGATIVE) Urine Nitrite (NEGATIVE) Urine Bilirubin (NEGATIVE) Urine Urobilinogen (0-1) mg/dL Urine Leukocytes (NEGATIVE) Urine WBC (Auto) (0-5) /HPF Urine RBC (Auto) U Epithel Cells (Auto) (FEW) /HPF Urine Bacteria (Auto) (NEGATIVE) /HPF Urine RBC (0-5) [place]/ul Urine Mucus (Auto) (NEGATIVE) /HPF Ur Culture Indicated? Urine Glucose (NEGATIVE) mg/dL Influenza Type A Ag NEGATIVE (NEGATIVE) Influenza Type B Ag NEGATIVE (NEGATIVE) RSV (PCR) NEGATIVE (Negative) SARS-CoV-2 (PCR) NEGATIVE (NEGATIVE) 10/09/22 10/09/22 10/09/22 Range/Units 06:58 11:26 12:39 WBC (4.0-10.5) x10^3/uL RBC (4.1-5.4) x10^6/uL Hgb (12.0-16.0) g/dL Hct (35-47) % MCV (78-100) fL MCH (26-32) pg MCHC (32-36) g/dL RDW (11.5-14.0) % Plt Count (150-450) x10^3/uL MPV (7.5-11.0) fL Gran % (36.0-66.0) % Immature Gran % (Auto) (0.00-0.4) % Nucleat RBC Rel Count (0.00-0.1) % Eos # (Auto) (0-0.5) x10^3/uL Immature Gran # (Auto) (0.00-0.03) x10^3u/L Absolute Lymphs (auto) (1.0-4.6) x10^3/uL Absolute Monos (auto) (0.0-1.3) x10^3/uL Absolute Nucleated RBC (0.00-0.01) x10^3u/L Lymphocytes % (24.0-44.0) % Monocytes % (0.0-12.0) % Eosinophils % (0.00-5.0) % Basophils % (0.0-0.4) % Absolute Granulocytes (1.4-6.9) x10^3/uL Basophils # (0-0.4) x10^3/uL Sodium (137-145) mmol/L Potassium (3.5-5.1) mmol/L Chloride (98-107) mmol/L Carbon Dioxide (22-30) mmol/L Anion Gap (5-15) MEQ/L BUN (7-17) mg/dL Creatinine (0.52-1.04) mg/dL Estimated GFR ML/MIN Glucose (74-106) mg/dL POC Glucometer 116 H 136 H (74 to 106) mg/dL Hemoglobin A1c (4.5-6.0) % Calcium (8.4-10.2) mg/dL Total Bilirubin (0.2-1.3) mg/dL AST (14-36) U/L ALT (0-35) U/L Alkaline Phosphatase (38-126) U/L Troponin I (0.000-0.034) ng/mL NT-Pro-B Natriuret Pep (0-450) pg/mL Serum Total Protein (6.3-8.2) g/dL Albumin (3.5-5.0) g/dL Amylase (30-110) U/L Lipase (23-300) U/L Urinalys Dipstick Clnc MAIN LAB Urine Color YELLOW (YELLOW) Urine Appearance CLEAR (CLEAR) Urine pH 7.0 (5-6) Ur Specific [place] 1.025 (1.005-1.025) POC Urine Protein Conf NEGATIVE (Negative) Urine Ketones NEGATIVE (NEGATIVE) Urine Nitrite NEGATIVE (NEGATIVE) Urine Bilirubin NEGATIVE (NEGATIVE) Urine Urobilinogen 1 A (0-1) mg/dL Urine Leukocytes NEGATIVE (NEGATIVE) Urine WBC (Auto) 0-2 (0-5) /HPF Urine RBC (Auto) Not Reportable U Epithel Cells (Auto) RARE (FEW) /HPF Urine Bacteria (Auto) RARE (NEGATIVE) /HPF Urine RBC NEGATIVE (0-5) [place]/ul Urine Mucus (Auto) SLIGHT A (NEGATIVE) /HPF Ur Culture Indicated? NO Urine Glucose NEGATIVE (NEGATIVE) mg/dL Influenza Type A Ag (NEGATIVE) Influenza Type B Ag (NEGATIVE) RSV (PCR) (Negative) SARS-CoV-2 (PCR) (NEGATIVE) 10/09/22 Range/Units 16:43 WBC (4.0-10.5) x10^3/uL RBC (4.1-5.4) x10^6/uL Hgb (12.0-16.0) g/dL Hct (35-47) % MCV (78-100) fL MCH (26-32) pg MCHC (32-36) g/dL RDW (11.5-14.0) % Plt Count (150-450) x10^3/uL MPV (7.5-11.0) fL Gran % (36.0-66.0) % Immature Gran % (Auto) (0.00-0.4) % Nucleat RBC Rel Count (0.00-0.1) % Eos # (Auto) (0-0.5) x10^3/uL Immature Gran # (Auto) (0.00-0.03) x10^3u/L Absolute Lymphs (auto) (1.0-4.6) x10^3/uL Absolute Monos (auto) (0.0-1.3) x10^3/uL Absolute Nucleated RBC (0.00-0.01) x10^3u/L Lymphocytes % (24.0-44.0) % Monocytes % (0.0-12.0) % Eosinophils % (0.00-5.0) % Basophils % (0.0-0.4) % Absolute Granulocytes (1.4-6.9) x10^3/uL Basophils # (0-0.4) x10^3/uL Sodium (137-145) mmol/L Potassium (3.5-5.1) mmol/L Chloride (98-107) mmol/L Carbon Dioxide (22-30) mmol/L Anion Gap (5-15) MEQ/L BUN (7-17) mg/dL Creatinine (0.52-1.04) mg/dL Estimated GFR ML/MIN Glucose (74-106) mg/dL POC Glucometer 180 H (74 to 106) mg/dL Hemoglobin A1c (4.5-6.0) % Calcium (8.4-10.2) mg/dL Total Bilirubin (0.2-1.3) mg/dL AST (14-36) U/L ALT (0-35) U/L Alkaline Phosphatase (38-126) U/L Troponin I (0.000-0.034) ng/mL NT-Pro-B Natriuret Pep (0-450) pg/mL Serum Total Protein (6.3-8.2) g/dL Albumin (3.5-5.0) g/dL Amylase (30-110) U/L Lipase (23-300) U/L Urinalys Dipstick Clnc Urine Color (YELLOW) Urine Appearance (CLEAR) Urine pH (5-6) Ur Specific [place] (1.005-1.025) POC Urine Protein Conf (Negative) Urine Ketones (NEGATIVE) Urine Nitrite (NEGATIVE) Urine Bilirubin (NEGATIVE) Urine Urobilinogen (0-1) mg/dL Urine Leukocytes (NEGATIVE) Urine WBC (Auto) (0-5) /HPF Urine RBC (Auto) U Epithel Cells (Auto) (FEW) /HPF Urine Bacteria (Auto) (NEGATIVE) /HPF Urine RBC (0-5) [place]/ul Urine Mucus (Auto) (NEGATIVE) /HPF Ur Culture Indicated? Urine Glucose (NEGATIVE) mg/dL Influenza Type A Ag (NEGATIVE) Influenza Type B Ag (NEGATIVE) RSV (PCR) (Negative) SARS-CoV-2 (PCR) (NEGATIVE) Radiology Exams: Radiology Procedures Category Date Time Status ABDOMEN AND PELVIS W/0 CONTRAS [CT] Routine Exams 10/08/22 18:33 Completed CHEST 2 VIEWS (PA AND LAT) Routine Exams 10/09/22 Completed ECHO W/2D AND DOPPLER [US] Routine Exams 10/09/22 08:00 Draft KIDNEY [US] Routine Exams 10/09/22 Completed Multi-Disciplinary Progress Notes: Multi-Disciplinary Progress Notes 10/09/22 11:04 Case Management Note by Madyson Palacios EMAIL SENT TO [facility] ABOUT NEEDS NOTED IN CM ASSESSMENT Initialized on 10/09/22 11:04 - END OF NOTE Assessment/Plan (1) Abdominal pain Current Visit: No Status: Resolved Qualifiers: Abdominal location: unspecified location Qualified Code(s): R10.9 - Unspecified abdominal pain Assessment & Plan: R sided - RUQ, R mid, RLQ. If U/S kidney and bladder nl, repeat CT scan but with IV and po contrast. I'm really unsure of the source of her pain. Code(s): R10.9 - UNSPECIFIED ABDOMINAL PAIN (2) Dyspnea on exertion Current Visit: Yes Status: Acute Assessment & Plan: Her BNP was actually normal. Echo today. Code(s): R06.09 - OTHER FORMS OF DYSPNEA (3) Coronary arteriosclerosis Current Visit: No Status: Chronic (4) Diabetes type 2, uncontrolled Current Visit: No Status: Chronic Qualifiers: Coma presence: without coma Assessment & Plan: I have not resumed her home insulin because she's been NPO. (5) COPD (chronic obstructive pulmonary disease) Current Visit: Yes Status: Acute Qualifiers: COPD type: unspecified COPD Qualified Code(s): J44.9 - Chronic obstructive pulmonary disease, unspecified
[2022-10-09] MEDS ORDERED: NON-FORMULARY ITEM (Hydroxychloroquine Sulfate [Hydroxychloroquine Sulfate] 200 MG Tablet) PO SCH (22:00)
[2022-10-09] MEDS ORDERED: LIPITOR 40MG PO SCH (22:00)
[2022-10-09] MEDS ORDERED: Mirapex 0.5 MG Tablet PO SCH (22:00)
[2022-10-09] MEDS ORDERED: NON-FORMULARY ITEM (Pramipexole Di-Hcl [Pramipexole Dihydrochloride] 0.125 MG Tablet) PO SCH (22:00)
[2022-10-09] MEDS ORDERED: AMITRIPTYLINE 25 MG TABLET PO SCH (22:00)
[2022-10-09] MEDS ORDERED: Pepcid 20 MG PO SCH (22:00)
[2022-10-09] MEDS ORDERED: NON-FORMULARY ITEM (Famotidine [Famotidine] 40 MG Tablet) PO SCH (22:00)
[2022-10-09] MEDS ORDERED: ZOCOR 20MG PO SCH (22:00)
[2022-10-10] MEDS: MORPHINE SULFATE 4 MG INJ IV PRN (00:26)
[2022-10-10] MEDS: Lactated Ringers 1,000 ML IV SCH (00:28)
[2022-10-10 07:21] LABS: Absolute Neutrophil Ct (ANC) 4.27 x10^3/uL (1.4-6.9); Basophil (Absolute #) 0.07 x10^3/uL (0-0.4); Eosinophil % 2.5 % (0.00-5.0); Hematocrit 40.6 % (35-47); Hemoglobin 13.4 g/dL (12.0-16.0); Lymphocyte (Absolute #) 2.72 x10^3/uL (1.0-4.6); Lymphocytes % 34.2 % (24.0-44.0); Mean Cell Volume 92.1 fL (78-100); Mean Corpuscular Hemoglobin 30.4 pg (26-32); Mean Platelet Volume 9.3 fL (7.5-11.0); Monocyte (Absolute #) 0.68 x10^3/uL (0.0-1.3); Monocytes % 8.5 % (0.0-12.0); Neutrophil % 53.6 % (36.0-66.0); Platelet Count 328 x10^3/uL (150-450); Red Blood Count 4.41 x10^6/uL (4.1-5.4); Red Cell Distribution Width 12.2 % (11.5-14.0)
[2022-10-10 07:49] VITALS: BP 154/88; PULSE 82; O2SAT 96
--- NOTE | 2022-10-10 08:18 | PCM.DS ---
Discharge Summary Date of Admission: 10/08/22 16:37 Admitting Physician: SRIDEVI KU Primary Care Provider: SRIDEVI KU Allergies Allergies adhesive Allergy (Severe, Verified 05/19/22 18:23) states adhesive from medication patches clonazepam [From Klonopin] Allergy (Severe, Verified 05/19/22 18:23) tizanidine HCl [From Zanaflex] Adverse Reaction (Verified 05/19/22 18:23) "weird sensation in legs" restless legs Hospital Summary - Hospital Course Hospital Course: patient admitted by her PCP as direct admit with abd pain. she is tolerating po intake normal diet with normal bowel movement. her pain is in her right posterior hip and flank, [place] and hurts to have sheets and blankets on it. had shingles there in the past. no chest pain, no shortness of breath. she is requesting discharge today - Vitals & Intake/Output Vital Signs: Vital Signs Temperature 97.8 F 10/10/22 07:48 Pulse Rate 82 10/10/22 07:48 Respiratory Rate 18 10/10/22 07:48 Blood Pressure 154/88 10/10/22 07:48 O2 Sat by Pulse Oximetry 96 10/10/22 07:48 Intake & Output: Intake & Output 10/07/22 10/08/22 10/09/22 10/10/22 11:59 11:59 11:59 11:59 Intake Total 227 5454 Output Total 3200 4700 Balance -2973 754 Weight 107.5 kg - Lab Result Diagrams: 10/10/22 07:23 10/08/22 17:00 Lab Results-Last 24 Hrs: Lab Results-Last 24 Hours 10/09/22 10/09/22 10/09/22 Range/Units 11:26 12:39 16:43 WBC (4.0-10.5) x10^3/uL RBC (4.1-5.4) x10^6/uL Hgb (12.0-16.0) g/dL Hct (35-47) % MCV (78-100) fL MCH (26-32) pg MCHC (32-36) g/dL RDW (11.5-14.0) % Plt Count (150-450) x10^3/uL MPV (7.5-11.0) fL Gran % (36.0-66.0) % Immature Gran % (Auto) (0.00-0.4) % Nucleat RBC Rel Count (0.00-0.1) % Eos # (Auto) (0-0.5) x10^3/uL Immature Gran # (Auto) (0.00-0.03) x10^3u/L Absolute Lymphs (auto) (1.0-4.6) x10^3/uL Absolute Monos (auto) (0.0-1.3) x10^3/uL Absolute Nucleated RBC (0.00-0.01) x10^3u/L Lymphocytes % (24.0-44.0) % Monocytes % (0.0-12.0) % Eosinophils % (0.00-5.0) % Basophils % (0.0-0.4) % Absolute Granulocytes (1.4-6.9) x10^3/uL Basophils # (0-0.4) x10^3/uL POC Glucometer 136 H 180 H (74 to 106) mg/dL Urinalys Dipstick Clnc MAIN LAB Urine Color YELLOW (YELLOW) Urine Appearance CLEAR (CLEAR) Urine pH 7.0 (5-6) Ur Specific [place] 1.025 (1.005-1.025) POC Urine Protein Conf NEGATIVE (Negative) Urine Ketones NEGATIVE (NEGATIVE) Urine Nitrite NEGATIVE (NEGATIVE) Urine Bilirubin NEGATIVE (NEGATIVE) Urine Urobilinogen 1 A (0-1) mg/dL Urine Leukocytes NEGATIVE (NEGATIVE) Urine WBC (Auto) 0-2 (0-5) /HPF Urine RBC (Auto) Not Reportable U Epithel Cells (Auto) RARE (FEW) /HPF Urine Bacteria (Auto) RARE (NEGATIVE) /HPF Urine RBC NEGATIVE (0-5) [place]on[place]/ul Urine Mucus (Auto) SLIGHT A (NEGATIVE) /HPF Ur Culture Indicated? NO Urine Glucose NEGATIVE (NEGATIVE) mg/dL 10/09/22 10/10/22 10/10/22 Range/Units 20:17 07:23 07:30 WBC 8.0 (4.0-10.5) x10^3/uL RBC 4.41 (4.1-5.4) x10^6/uL Hgb 13.4 (12.0-16.0) g/dL Hct 40.6 (35-47) % MCV 92.1 (78-100) fL MCH 30.4 (26-32) pg MCHC 33.0 (32-36) g/dL RDW 12.2 (11.5-14.0) % Plt Count 328 (150-450) x10^3/uL MPV 9.3 (7.5-11.0) fL Gran % 53.6 (36.0-66.0) % Immature Gran % (Auto) 0.3 (0.00-0.4) % Nucleat RBC Rel Count 0.0 (0.00-0.1) % Eos # (Auto) 0.20 (0-0.5) x10^3/uL Immature Gran # (Auto) 0.02 (0.00-0.03) x10^3u/L Absolute Lymphs (auto) 2.72 (1.0-4.6) x10^3/uL Absolute Monos (auto) 0.68 (0.0-1.3) x10^3/uL Absolute Nucleated RBC 0.00 (0.00-0.01) x10^3u/L Lymphocytes % 34.2 (24.0-44.0) % Monocytes % 8.5 (0.0-12.0) % Eosinophils % 2.5 (0.00-5.0) % Basophils % 0.9 (0.0-0.4) % Absolute Granulocytes 4.27 (1.4-6.9) x10^3/uL Basophils # 0.07 (0-0.4) x10^3/uL POC Glucometer 184 H 155 H (74 to 106) mg/dL Urinalys Dipstick Clnc Urine Color (YELLOW) Urine Appearance (CLEAR) Urine pH (5-6) Ur Specific [place] (1.005-1.025) POC Urine Protein Conf (Negative) Urine Ketones (NEGATIVE) Urine Nitrite (NEGATIVE) Urine Bilirubin (NEGATIVE) Urine Urobilinogen (0-1) mg/dL Urine Leukocytes (NEGATIVE) Urine WBC (Auto) (0-5) /HPF Urine RBC (Auto) U Epithel Cells (Auto) (FEW) /HPF Urine Bacteria (Auto) (NEGATIVE) /HPF Urine RBC (0-5) [place]/ul Urine Mucus (Auto) (NEGATIVE) /HPF Ur Culture Indicated? Urine Glucose (NEGATIVE) mg/dL Micro Results-Entire Visit: Microbiology 10/08/22 17:00 Urine Culture - Preliminary Urine, Void NO GROWTH TO DATE Accuchecks Date 10/10/22 Date 10/09/22 Date 10/09/22 Time 07:42 Time 20:40 Time 11:38 - Radiology Exams Ordered Rad Exams-Entire Visit: Radiology Procedures Category Date Time Status ABDOMEN AND PELVIS W/0 CONTRAS [CT] Routine Exams 10/08/22 18:33 Completed CHEST 2 VIEWS (PA AND LAT) Routine Exams 10/09/22 Completed ECHO W/2D AND DOPPLER [US] Routine Exams 10/09/22 08:00 Draft KIDNEY [US] Routine Exams 10/09/22 Completed - Procedures and Test Procedures and Tests throughout Hospitalization: Therapy Orders & Screens 10/08/22 17:00 EKG ROUTINE Comment: Diagnosis: ABD PAIN, LE EDEMA,URINARY RETENTION,IQBAL 10/08/22 17:24 Smoking Cessation Education ONCE Comment: Diagnosis: abdominal pain Smoking Status: Current every day smoker How long have you smoked: 30 years Have you smoked in the past 12 months: Yes Approximately how many cigarettes per day: 40 Do you dip or chew tobacco: No Discharge Exam General Appearance: no apparent distress, obese Neurologic Exam: alert, oriented x 3 Respiratory Exam: normal breath sounds, lungs clear, No respiratory distress Cardiovascular Exam: regular rate/rhythm, normal heart sounds Gastrointestinal/Abdomen Exam: soft, No tenderness, No mass Extremity Exam: normal inspection, normal range of motion Skin Exam: normal color, warm, dry Final Diagnosis/Problem List - Final Discharge Diagnosis/Problem (1) Abdominal pain Current Visit: No Status: Resolved Assessment & Plan: testing negative and exam benign, home today. appears to be a neuralgia, she is on max dose of gabapentin and chronic narcotic therapy, no changes Code(s): R10.9 - UNSPECIFIED ABDOMINAL PAIN (2) Coronary arteriosclerosis Current Visit: No Status: Chronic (3) Diabetes type 2, uncontrolled Current Visit: No Status: Chronic - Discharge Disposition: Home, Self-Care Condition: Stable Prescriptions: Continue Omeprazole 40 mg PO DAILY Nitroglycerin 0.4 mg Tablet [Nitrostat 0.4 MG Tablet] 0.4 mg SL Q5MIN PRN MR X 3 PRN PRN Reason: Chest Pain dilTIAZem HCL [Diltiazem HCl] 120 mg PO DAILY Insulin Lispro [Humalog] 60 units SQ AC Gabapentin [Neurontin] 1,200 mg PO TID Oxycodone HCl/Acetaminophen [Percocet 10-325 mg Tablet] 1 each PO Q6HPRN PRN PRN Reason: Pain Carboxymethylcellulose Sodium [Lubricant Eye Drops] 1 drop IO UD PRN PRN Reason: dry eyes Baclofen 20 mg PO TID Insulin Degludec [Tresiba Flextouch U-200] 160 unit SQ DAILY Isosorbide Mononitrate 30 mg [Imdur 30 MG] 30 mg PO DAILY Fluoxetine HCl 60 mg PO DAILY Clopidogrel Bisulfate [Clopidogrel] 75 mg PO DAILY Atorvastatin Calcium 80 mg PO HS Metoprolol Tartrate 25 mg [Lopressor 25MG Tab] 25 mg PO BID Amitriptyline HCl 25 mg [Amitriptyline 25 mg Tablet] 25 mg PO QHS Pramipexole Di-HCl [Pramipexole Dihydrochloride] 0.25 mg PO QHS Hydroxychloroquine Sulfate 200 mg PO BID Levothyroxine Sodium 137 mcg PO DAILY #30 tablet Famotidine 80 mg PO QHS Albuterol 8 gm Mdi Hfa [Ventolin Hfa MDI] 8 gm IH Q4H PRN PRN Reason: Shortness Of Breath Follow up with: SRIDEVI KU [Primary Care Provider] -
[2022-10-10] MEDS: HUMALOG SQ SCH (08:39)
[2022-10-10 09:01] LABS: ALBUMIN 4.1 g/dL (3.5-5.0); ALKALINE PHOSPHATASE 131 U/L (38-126); ANION GAP 10.1 MEQ/L (5-15); BLOOD UREA NITROGEN 6 mg/dL (7-17); CHLORIDE 103 mmol/L (98-107); Calcium 9.2 mg/dL (8.4-10.2); Carbon Dioxide 29 mmol/L (22-30); Creatinine 1 0.43 mg/dL (0.52-1.04); EST GLOMERULAR FILTRATION RATE > 60.0 ML/MIN; Glucose 159 mg/dL (74-106); Potassium 3.8 mmol/L (3.5-5.1); SGOT/AST 21 U/L (14-36); SGPT/ALT 17 U/L (0-35); SODIUM 138 mmol/L (137-145); Total Protein 7.2 g/dL (6.3-8.2)
[2022-10-10] MEDS ORDERED: DILTIAZEM HCL 120 MG PO SCH (10:00)
[2022-10-10] MEDS ORDERED: NON-FORMULARY ITEM (Omeprazole [Omeprazole] 40 MG Capsule.Dr) PO SCH (10:00)
[2022-10-10] MEDS ORDERED: NON-FORMULARY ITEM (Levothyroxine Sodium [Levothyroxine Sodium] 137 MCG Tablet) PO SCH (10:00)
== END 2022-10-10 09:21 | disposition home or self-care (01) ==
LOC: MED SURG 16:37
PROVIDERS: ADMIT Family Medicine; ATTEND Family Medicine
DX: R10.9 Unspecified abdominal pain (principal); I25.10 Atherosclerotic heart disease of native coronary artery without angina pectoris; E11.65 Type 2 diabetes mellitus with hyperglycemia; R06.09 Other forms of dyspnea; J44.9 Chronic obstructive pulmonary disease, unspecified; R60.9 Edema, unspecified; R33.9 Retention of urine, unspecified; Z79.899 Other long term (current) drug therapy; Z20.828 Contact with and (suspected) exposure to other viral communicable diseases
CPT/HCPCS: 0241U; 36415; 71046; 74176; 76770; 80053; 81015; 82150; 82947; 83036; 83690; 83880; 84484; 85025; 87086; 93005; 93306; G0378; J2270; A9270-GY

== ENCOUNTER 2024-01-12 20:59 | Emergency (ER) | payer MEDICARE ==
[2024-01-12 21:49] VITALS: TEMP 98.3
--- NOTE | 2024-01-12 21:55 | ERPHSYRPT ---
- History of Present Illness Time Seen by Provider: 01/12/24 21:50 Source: patient Physician History: 48-year-old female presents to our ED for evaluation of her tailbone, head and left tibia. Patient states she fell twice yesterday and a second time today. Patient attributes her fall to peripheral neuropathy and central nervous system disorder. Patient has a history of lupus. Patient has been unsteady on her feet. Per her neurologist patient symptoms may be secondary to a central nervou s system autoimmune condition. No chest pain or shortness of breath. No nausea vomiting or diaphoresis. Patient is a fall risk secondary to her lupus and peripheral neuropathy per patient. Patient otherwise feels well. No neck pain. Cervical spine cleared clinically. Patient voices no other complaints or concerns at this time. Portions of this note were created with voice recognition technology. There may be grammatical, spelling, punctuation or sound alike errors Timing/Duration: yesterday Severity: moderate Modifying Factors: Improves With: nothing Associated Symptoms: denies symptoms Allergies/Adverse Reactions: adhesive Allergy (Severe, Verified 01/12/24 22:03) states adhesive from medication patches clonazepam [From Klonopin] Allergy (Severe, Verified 01/12/24 22:03) Sulfa (Sulfonamide Antibiotics) Adverse Reaction (Severe, Verified 01/12/24 22:03) throws her into a lupus flare up tizanidine HCl [From Zanaflex] Adverse Reaction (Verified 01/12/24 22:03) "weird sensation in legs" restless legs Home Medications: Gabapentin [Neurontin] 600 mg PO TID 07/04/15 [History] Insulin Lispro [Humalog] 60 units SQ AC 07/04/15 [History] Nitroglycerin 0.4 mg Tablet [Nitrostat 0.4 MG Tablet] 0.4 mg SL Q5MIN PRN MR X 3 PRN 07/04/15 [History] Omeprazole 40 mg PO DAILY 07/04/15 [History] dilTIAZem HCL [Diltiazem HCl] 120 mg PO DAILY 07/04/15 [History] Oxycodone HCl/Acetaminophen [Percocet 10-325 mg Tablet] 1 each PO Q4HPRN PRN 05/05/16 [History] Baclofen 20 mg PO QID 11/25/16 [History] Insulin Degludec [Tresiba Flextouch U-200] 160 unit SQ DAILY 07/09/17 [History] Atorvastatin Calcium 80 mg PO HS 07/17/20 [History] Clopidogrel Bisulfate [Clopidogrel] 75 mg PO DAILY 07/17/20 [History] Fluoxetine HCl 60 mg PO DAILY 07/17/20 [History] Hydroxychloroquine Sulfate 200 mg PO BID 11/12/21 [History] Metoprolol Tartrate 25 mg [Lopressor 25MG Tab] 50 mg PO BID 11/12/21 [History] Albuterol 8 gm Mdi Hfa [Ventolin Hfa MDI] 8 gm IH Q4H PRN 10/08/22 [History] Famotidine 80 mg PO QHS 10/08/22 [History] Budesonide/Formoterol Fumarate [Budesonide-Formoterol 160-4.5] 2 puff IH BID 01/12/24 [History] Carboxymethylcellulose Sodium [Artificial Tears] 2 drops OP UD PRN 01/12/24 [History] Duloxetine HCl [Cymbalta] 60 mg PO HS 01/12/24 [History] Fenofibrate 48 mg PO HS 01/12/24 [History] Ropinirole HCl 1 mg PO HS 01/12/24 [History] Tiotropium [place] [Spiriva Handihaler] 1 puff IH DAILY 01/12/24 [History] Hx Tetanus, Diphtheria Vaccination/Date Given: Yes Hx Influenza Vaccination/Date Given: No Hx Pneumococcal Vaccination/Date Given: Yes Travel Risk - Vaccine Status Have you recieved a Covid-19 vaccination: Yes [employer]: Moderna - Vaccination Dates Date of 2cond Vaccination (if applicable): na - Review of Systems Constitutional: No Symptoms, No Fever, No Chills Eyes: No Symptoms Ears, Nose, & Throat: No Symptoms Respiratory: No Symptoms, No Cough, No Dyspnea Cardiac: No Symptoms, No Chest Pain, No Edema, No Syncope Abdominal/Gastrointestinal: No Symptoms, No Abdominal Pain, No Nausea, No Vomiting, No Diarrhea Genitourinary Symptoms: No Symptoms, No Dysuria Musculoskeletal: No Symptoms, No Back Pain, No Neck Pain Skin: No Symptoms, No Rash Neurological: No Symptoms, No Dizziness, No Focal Weakness, No Sensory Changes Psychological: No Symptoms Endocrine: No Symptoms Hematologic/Lymphatic: No Symptoms Immunological/Allergic: No Symptoms All Other Systems: Reviewed and Negative - Past Medical History Pertinent Past Medical History: Yes Neurological History: Peripheral Neuropathy ENT History: No Pertinent History Cardiac History: Angina, Coronary Artery Disease, High Cholesterol, Hypertension, Myocardial Infarction ([place]) Respiratory History: Bronchitis Endocrine Medical History: Diabetes Type II, Hypothyroidism Musculoskeletal History: Degenerative Disk Disease, Fibromyalgia, Osteoarthritis GI Medical History: GERD, Hernia, Irritable Bowel, Polyps, Other History: No Pertinent History Psycho-Social History: Anxiety, Depression Female Reproductive Disorders: Other Other Medical History: lupus, PCOS, calderón's esophagus, kyra, fasciculation, hiatal hernia. dilated bile duct - Past Surgical History Past Surgical History: Yes Neuro Surgical History: Other Cardiac: Cardiac Catheterization, Cardiac Stent Respiratory: No Pertinent History Gastrointestinal: Cholecystectomy Genitourinary: No Pertinent History Musculoskeletal: Other Female Surgical History: Section, Hysterectomy, Tubal Ligation, Other Other Surgical History: disc fusion c6-c7, left knee arthroscopy, lymph node biopsy, polyps removed from colon, +HPV, lumbar laminectomy, posterior discectomy - rods, pins, bone graft L4-S1 - Social History Smoking Status: Current every day smoker How long have you smoked: 30 years Exposure to second hand smoke: Yes Drug Use: none Patient Lives Alone: No - Nursing Vital Signs Nursing Vital Signs: Initial Vital Signs Temperature 98.3 F 01/12/24 21:47 Pulse Rate 109 H 01/12/24 21:47 Respiratory Rate 20 01/12/24 21:47 Blood Pressure 155/90 01/12/24 21:47 O2 Sat by Pulse Oximetry 94 L 01/12/24 21:47 Pain Scale Pain Intensity 8 - Physical Exam General Appearance: no apparent distress, alert Eye Exam: PERRL/EOMI, eyes nml inspection Ears, Nose, Throat Exam: normal ENT inspection, TMs normal, pharynx normal, moist mucous membranes Neck Exam: normal inspection, non-tender, supple, full range of motion Respiratory Exam: normal breath sounds, lungs clear, airway intact, No respirato ry distress Cardiovascular Exam: regular rate/rhythm, normal heart sounds, normal peripheral pulses Gastrointestinal/Abdomen Exam: soft, normal bowel sounds, No tenderness, No mass Back Exam: normal inspection, normal range of motion, No CVA tenderness, No vertebral tenderness Extremity Exam: normal inspection, normal range of motion, pelvis stable Neurologic Exam: alert, oriented x 3, cooperative, normal mood/affect, nml cerebellar function, nml station & gait, sensation nml, No motor deficits Skin Exam: normal color, warm, dry, No rash Lymphatic Exam: No adenopathy SpO2 Interpretation: normal SpO2: 94 O2 Delivery: Room Air - Course Nursing assessment & vital signs reviewed: Yes - Radiology Exams Lower Leg X-ray Interpretation: Interpreted by me (No fracture dislocations) - CT Exams Head CT Interpretation: Tele-radiologist Report (No acute intracranial abnormality) Pelvis CT Interpretation: Tele-radiologist Report (No fracture or dislocation. Arthr itic changes observed both hips) Ordered Tests: Active Orders 24 hr Category Date Time Status HEAD WITHOUT CONTRAST [CT] Stat Exams 01/12/24 21:46 Completed LOWER LEG Stat Exams 01/12/24 21:47 Taken PELVIS WITHOUT CONTRAST [CT] Stat Exams 01/12/24 21:48 Completed Medication Summary Discontinued Medications Generic Name Dose Route Start Last Admin Trade Name Matheus PRN Reason Stop Dose Admin Ketorolac Tromethamine 30 mg 01/12/24 23:22 Ketorolac Tromethamine 30 Mg/Ml Inj IM 01/12/24 23:23 STAT ONE Ketorolac Tromethamine Confirm 01/12/24 23:27 Ketorolac Tromethamine 30 Mg/Ml Inj Administered 01/12/24 23:28 Dose 30 mg .ROUTE .STMedical Simulation-MED ONE - Progress Progress: improved Progress Note: 48-year-old female history of recurrent falls secondary to peripheral neuropathy presents to our ED for evaluation of pain to the left leg sacrum and a mild headache due to a fall x 2 over the past couple days. Patient otherwise asymptomatic. CT head negative for acute intracranial pathology. Pelvic CT scan negative for fracture. Incidental bilateral hip arthritic changes observed. Left leg negative for fracture dislocation. Patient received Toradol for pain control. She feels well. Patient states is ready for discharge. She voices no other complaints or concerns at this time. Patient initially declined pain medication. Patient then requested pain medication Toradol ordered and administered. Portions of this note were created with voice recognition technology. There may be grammatical, spelling, punctuation or sound alike errors Complexity problem addressed is moderate acute complicated No critical care time Complex of data reviewed and analyzed is moderate. Test ordered test reviewed. Results analyzed and correlated clinically with history and physical examination. Dr. Acosta independent reviewed x-ray of the left leg Risk of complication and or risk of morbidity/mortality patient management is low Vital stable. Time spent to discharge patient is approximately [address] [facility] of care established for shared decision making. No social determinants of health present impede follow-up. Portions of this note were created with voice recognition technology. There may be grammatical, spelling, punctuation or sound alike errors 01/12/24 23:33 01/12/24 23:34 Counseled pt/family regarding: diagnosis, need for follow-up, rad results - Departure Departure Disposition: Home Clinical Impression: Fall, Sacral contusion, Leg pain, left, Headache Condition: Stable Critical Care Time: No Referrals: BON WHELAN MD [ACTIVE STAFF] - Follow up/PCP as directed Additional Instructions: Discharge/Care Plan HATTIE BOWLING was seen on 01/12/24 in the Emergency Room. The patient was counseled regarding Diagnosis,Lab results, Imaging studies, need for follow up and when to return to the Emergency Room. Prescriptions given: Discharge Note I have spoken with the patient and/or caregivers. I have explained the patient's condition, diagnosis and treatment plan based on the information available to me at this time. I have answered the patient's and/or caregiver's questions and addressed any concerns. The patient and/or caregivers have as good understanding of the patient's diagnosis, condition and treatment plan as can be expected at this point. The vital signs have been stable. The patient's condition is stable and appropriate for discharge from the emergency department. The patient will pursue further outpatient evaluation with the primary care physician or other designated or consulting physician as outlined in the discharge instructions. The patient and/or caregivers are agreeable to this plan of care and follow-up instructions have been explained in detail. The patient and/or caregivers have received these instruction. The patient/and or caregivers are aware that any significant change in condition or worsening of symptoms should prompt an immediate return to this or the closest emergency department or call 911.
[2024-01-12 23:14] VITALS: BP 132/66; PULSE 98; RESP 20
--- NOTE | 2024-01-12 23:14 | XRAY ---
CLINICAL HISTORY: fall, headache TECHNIQUE: Axial noncontrast CT scan of the brain was performed from the skull base to the high parietal region. COMPARISON: None FINDINGS: No intracerebral or extra axial hematoma. No definite calvarium fractures. Mild prominence of sulcal spaces noted. The visualized brain parenchyma shows normal appearance. Swan-white matter differentiation is maintained. No midline shifts or deformity. Normal size and configuration of the cerebral ventricles. Normal CT appearance of the posterior fossa structures namely the cerebellar hemispheres, brainstem and cerebellar peduncles. The IACs are unremarkable. The cerebello-pontine angles are clear. The osseous structures in the skull base are unremarkable. The scanned paranasal sinuses are clear. Mild left sided nasal septal deviation noted. IMPRESSION: No acute intracranial traumatic injury detected at present study Electronically Signed by: Theresa Matt MD. (01/12/2024 23:10:25 EST)
--- NOTE | 2024-01-12 23:22 | XRAY ---
CLINICAL HISTORY: fall, pain TECHNIQUE: CT scan of the pelvis was performed without IV contrast. Coronal and sagittal reconstructive images were obtained. COMPARISON: None. FINDINGS: No evidence of obvious fracture noted at present examination. Both hip joints show early osteoarthritic changes with osteophytic spurring. Tiny calcific/ossific focus seen in the region of anterosuperior labrum of right hip joint. The hip joints reveal normal rounded contour. No evidence of articular collapse. The joint spaces are normal. There is no evidence of joint effusion. Bilateral sacroiliac joints show vacuum phenomenon. The visualized L4 to S1 vertebral bodies show spinal fixation. The orthopedic hardware appears intact. The visualized soft tissues are normal. IMPRESSION: No evidence of obvious fracture noted at present examination. Early osteoarthritic changes in bilateral hip joints Post spinal fixation status at L4-S1 levels Electronically Signed by: Theresa Matt MD. (01/12/2024 23:18:00 EST)
[2024-01-12] MEDS ORDERED: TORAdol 30 mg Injection ONE (23:27)
[2024-01-12 23:29] VITALS: O2SAT 94
[2024-01-12] MEDS: TORAdol 30 mg Injection IM ONE (23:31)
--- NOTE | 2024-01-13 08:42 | XRAY ---
Indication: Pain following fall. Comparison: None 2 view left lower leg demonstrates tiny posterior heel spur and minimal scattered vascular calcifications. No other bony, articular, or soft tissue abnormalities.
== END 2024-01-12 23:55 | disposition home or self-care (01) ==
LOC: ED 20:59
DX: S30.0XXA Contusion of lower back and pelvis, initial encounter (principal); W19.XXXA Unspecified fall, initial encounter; M79.605 Pain in left leg; R51.9 Headache, unspecified; Z91.81 History of falling; E78.5 Hyperlipidemia, unspecified; I10 Essential (primary) hypertension; E11.42 Type 2 diabetes mellitus with diabetic polyneuropathy; Z79.4 Long term (current) use of insulin; Z79.02 Long term (current) use of antithrombotics/antiplatelets; Z79.899 Other long term (current) drug therapy; Z72.0 Tobacco use
CPT/HCPCS: 70450; 72192; 73590; 96372; 99284; J1885

== ENCOUNTER 2024-03-08 16:25 | Emergency (ER) | payer MEDICARE ==
[2024-03-08 17:13] VITALS: TEMP 98.4
[2024-03-08] MEDS ORDERED: Zofran 4 MG/2 ML VIAL ONE (17:22)
[2024-03-08] MEDS ORDERED: Sodium Chloride 0.9% 1000 ML 1,000 ML ONE ×2 (17:22→19:16)
[2024-03-08] MEDS: Sodium Chloride 0.9% 1000 ML 1,000 ML IV STA (17:24)
[2024-03-08] MEDS: Zofran 4 MG/2 ML VIAL IV ONE (17:24)
[2024-03-08 17:45] LABS: Appearance Clear (Clear); Bacteria None Seen /HPF (None Seen); Bilirubin Negative (Negative); Blood Negative (Negative); Epithelial Cells None Seen /HPF (None Seen); Glucose, Urine >=1000 mg/dL (Negative); Hyaline Casts NONE SEEN /LPF (0-2); Ketones Negative (Negative); Leukocyte Esterase Negative (Negative); Nitrite Negative (Negative); Protein,Urine Dip Negative (Negative); RBC 0-2 /HPF (0-5); Specific Gravity >=1.030 (1.005-1.030); Urobilinogen 0.2 mg/dL (0.2); WBC 0-2 /HPF (0-5)
[2024-03-08 17:46] LABS: Absolute Neutrophil Ct (ANC) 7.06 x10^3/uL (1.4-6.9); BASOPHIL % 0.6 % (0.0-0.4); Basophil (Absolute #) 0.08 x10^3/uL (0-0.4); Eosinophil % 0.9 % (0.00-5.0); Eosinophil (Absolute #) 0.12 x10^3/uL (0-0.5); Hematocrit 42.3 % (35-47); Hemoglobin 14.4 g/dL (12.0-16.0); IMMATURE GRAN # 0.08 x10^3u/L (0.00-0.03); IMMATURE GRAN % 0.6 % (0.00-0.4); Lymphocyte (Absolute #) 4.49 x10^3/uL (1.0-4.6); Lymphocytes % 34.8 % (24.0-44.0); Mean Cell Volume 85.5 fL (78-100); Mean Corpuscular Hemoglobin 29.1 pg (26-32); Mean Platelet Volume 9.7 fL (7.5-11.0); Monocyte (Absolute #) 1.07 x10^3/uL (0.0-1.3); Monocytes % 8.3 % (0.0-12.0); Neutrophil % 54.8 % (36.0-66.0); Platelet Count 377 x10^3/uL (150-450); Red Blood Count 4.95 x10^6/uL (4.1-5.4); Red Cell Distribution Width 13.3 % (11.5-14.0); White Blood Count 12.9 x10^3/uL (4.0-10.5)
[2024-03-08 17:48] LABS: ADD URINE CULTURE? NO (NO)
[2024-03-08 17:52] LABS: ALBUMIN 4.3 g/dL (3.5-5.0); ANION GAP 16.3 MEQ/L (5-15); BILIRUBIN,TOTAL 0.4 mg/dL (0.2-1.3); Calcium 10.4 mg/dL (8.4-10.2); Creatinine 1 0.45 mg/dL (0.52-1.04); EST GLOMERULAR FILTRATION RATE 116.4 ML/MIN; MAGNESIUM 1.7 mg/dL (1.6-2.3); Total Protein 7.4 g/dL (6.3-8.2)
[2024-03-08 17:59] LABS: Potassium 2.6 mmol/L (3.5-5.1)
--- NOTE | 2024-03-08 18:42 | ERPHSYRPT ---
- History of Present Illness Time Seen by Provider: 03/08/24 17:10 Source: patient Exam Limitations: no limitations Patient Subjective Stated Complaint: Hyperglycemia Triage Nursing Assessment: Patient ambulated back to ED and transferred self to bed. Patient A+O X3. Patient's skin flushed and diaphorectic. Patient states she had an appointment with ALVARADO Javed for increasing abdominal pain, N/V and weight loss. Patient had labs done this am and was sent to ER for eval due to increased BS. Patient denies pain or discomfort. BS noted to be 243. Physician History: 49-year-old female presents to our ED as a referral from nurse practitioner for evaluation of suspected DKA. Patient was observed to have glucose of 500 and elevated anion gap of 23. Upon arrival to our ED patient advised that she has been experiencing chronic vomiting since December. Patient has had significant weight loss as well. Patient concerned as her mother has a history of liver cancer. Patient has had numerous imaging studies with no significant findings observed. Patient currently has an appointment scheduled with a GI physician in May. Patient states she cannot wait till May. Patient symptoms are becoming progressively worse. Patient unable to tolerate p.o. Symptoms are moderate in intensity. Symptoms are progressive. No specific worsening improving factors. Patient voices no other complaints or concerns at this time. Portions of this note were created with voice recognition technology. There may be grammatical, spelling, punctuation or sound alike errors Timing/Duration: today Severity: moderate Modifying Factors: Improves With: nothing Associated Symptoms: other (Nausea vomiting weight loss) Allergies/Adverse Reactions: adhesive Allergy (Severe, Verified 03/08/24 17:02) states adhesive from medication patches clonazepam [From Klonopin] Allergy (Severe, Verified 03/08/24 17:02) Sulfa (Sulfonamide Antibiotics) Adverse Reaction (Severe, Verified 03/08/24 17:02) throws her into a lupus flare up tizanidine HCl [From Zanaflex] Adverse Reaction (Verified 03/08/24 17:02) "weird sensation in legs" restless legs Home Medications: Gabapentin [Neurontin] 600 mg PO TID 07/04/15 [History] Insulin Lispro [Humalog] 60 units SQ AC 07/04/15 [History] Nitroglycerin 0.4 mg Tablet [Nitrostat 0.4 MG Tablet] 0.4 mg SL Q5MIN PRN MR X 3 PRN 07/04/15 [History] Omeprazole 40 mg PO DAILY 07/04/15 [History] dilTIAZem HCL [Diltiazem HCl] 120 mg PO DAILY 07/04/15 [History] Oxycodone HCl/Acetaminophen [Percocet 10-325 mg Tablet] 1 each PO Q4HPRN PRN 05/05/16 [History] Baclofen 20 mg PO QID 11/25/16 [History] Insulin Degludec [Tresiba Flextouch U-200] 160 unit SQ DAILY 07/09/17 [History] Atorvastatin Calcium 80 mg PO HS 07/17/20 [History] Clopidogrel Bisulfate [Clopidogrel] 75 mg PO DAILY 07/17/20 [History] Fluoxetine HCl 60 mg PO DAILY 07/17/20 [History] Hydroxychloroquine Sulfate 200 mg PO BID 11/12/21 [History] Metoprolol Tartrate 25 mg [Lopressor 25MG Tab] 50 mg PO BID 11/12/21 [History] Albuterol 8 gm Mdi Hfa [Ventolin Hfa MDI] 8 gm IH Q4H PRN 10/08/22 [History] Famotidine 80 mg PO QHS 10/08/22 [History] Budesonide/Formoterol Fumarate [Budesonide-Formoterol 160-4.5] 2 puff IH BID 01/12/24 [History] Carboxymethylcellulose Sodium [Artificial Tears] 2 drops OP UD PRN 01/12/24 [History] Duloxetine HCl [Cymbalta] 60 mg PO HS 01/12/24 [History] Fenofibrate 48 mg PO HS 01/12/24 [History] Ropinirole HCl 1 mg PO HS 01/12/24 [History] Tiotropium [place] [Spiriva Handihaler] 1 puff IH DAILY 01/12/24 [History] Hx Tetanus, Diphtheria Vaccination/Date Given: Yes Hx Influenza Vaccination/Date Given: No Hx Pneumococcal Vaccination/Date Given: Yes Immunizations Up to Date: Yes Travel Risk - International Travel Have you traveled outside of the country in past 3 weeks: No - Emerging Infectious Disease Are you exhibiting symptoms associated with any current EIDs: No - Review of Systems Constitutional: No Symptoms, No Fever, No Chills Eyes: No Symptoms Ears, Nose, & Throat: No Symptoms Respiratory: No Symptoms, No Cough, No Dyspnea Cardiac: No Symptoms, No Chest Pain, No Edema, No Syncope Abdominal/Gastrointestinal: No Symptoms, No Abdominal Pain, No Nausea, No Vomiting, No Diarrhea Genitourinary Symptoms: No Symptoms, No Dysuria Musculoskeletal: No Symptoms, No Back Pain, No Neck Pain Skin: No Symptoms, No Rash Neurological: No Symptoms, No Dizziness, No Focal Weakness, No Sensory Changes Psychological: No Symptoms Endocrine: No Symptoms Hematologic/Lymphatic: No Symptoms Immunological/Allergic: No Symptoms All Other Systems: Reviewed and Negative - Past Medical History Pertinent Past Medical History: Yes Neurological History: Peripheral Neuropathy ENT History: No Pertinent History Cardiac History: Angina, Coronary Artery Disease, High Cholesterol, Hypertension, Myocardial Infarction ([place]) Respiratory History: Bronchitis Endocrine Medical History: Diabetes Type II, Hypothyroidism Musculoskeletal History: Degenerative Disk Disease, Fibromyalgia, Osteoarthritis GI Medical History: GERD, Hernia, Irritable Bowel, Polyps, Other History: No Pertinent History Psycho-Social History: Anxiety, Depression Female Reproductive Disorders: Other Other Medical History: lupus, PCOS, calderón's esophagus, kyra, fasciculation, hiatal hernia. dilated bile duct - Past Surgical History Past Surgical History: Yes Neuro Surgical History: Other Cardiac: Cardiac Catheterization, Cardiac Stent Respiratory: No Pertinent History Gastrointestinal: Cholecystectomy Genitourinary: No Pertinent History Musculoskeletal: Other Female Surgical History: Section, Hysterectomy, Tubal Ligation, Other Other Surgical History: disc fusion c6-c7, left knee arthroscopy, lymph node biopsy, polyps removed from colon, +HPV, lumbar laminectomy, posterior discectomy - rods, pins, bone graft L4-S1 - Female History Hx Last Menstrual Period: hysterectomy Hx Now: No - Social History Smoking Status: Current every day smoker How long have you smoked: 30 years Exposure to second hand smoke: Yes Drug Use: none Patient Lives Alone: No - Nursing Vital Signs Nursing Vital Signs: Initial Vital Signs Temperature 98.4 F 03/08/24 17:03 Pulse Rate 111 H 03/08/24 17:03 Respiratory Rate 20 03/08/24 17:03 Blood Pressure 180/86 03/08/24 17:03 O2 Sat by Pulse Oximetry 98 03/08/24 17:03 Pain Scale Pain Intensity 0 - Physical Exam General Appearance: no apparent distress, alert Eye Exam: PERRL/EOMI, eyes nml inspection Ears, Nose, Throat Exam: normal ENT inspection, TMs normal, pharynx normal, moist mucous membranes Neck Exam: normal inspection, non-tender, supple, full range of motion Respiratory Exam: normal breath sounds, lungs clear, No respiratory distress Cardiovascular Exam: regular rate/rhythm, normal heart sounds, normal peripheral pulses Gastrointestinal/Abdomen Exam: soft, normal bowel sounds, No tenderness, No mass Back Exam: normal inspection, normal range of motion, No CVA tenderness, No ve rtebral tenderness Extremity Exam: normal inspection, normal range of motion, pelvis stable Neurologic Exam: alert, oriented x 3, cooperative, normal mood/affect, nml cerebellar function, nml station & gait, sensation nml, No motor deficits Skin Exam: normal color, warm, dry, No rash Lymphatic Exam: No adenopathy SpO2 Interpretation: normal SpO2: 98 O2 Delivery: Room Air - Course Nursing assessment & vital signs reviewed: Yes EKG Interpreted by Me: RATE (98), Sinus Rhythm, NORMAL AXIS, NORMAL INTERVALS - CT Exams Abdomen/Pelvis CT Interpretation: Tele-radiologist Report (Compared to 10/08/2022 normal appendix. Worsening fatty hepatomegaly up to 25.5 cm. No new acute findings) Ordered Tests: Active Orders 24 hr Category Date Time Status Heel Seat Laster STAT Care 03/08/24 17:20 Active EKG-ER Only STAT Care 03/08/24 17:19 Active IV Insertion STAT Care 03/08/24 17:19 Active Oxygen-ED Only Nasal Cannula 2 lpm Care 03/08/24 19:29 Active POCT Glucose Check STAT Care 03/08/24 17:19 Active Telemetry q4h Care 03/08/24 18:38 Active ACO SDOH Referral ONCE Cons 03/08/24 17:13 Active ABDOMEN AND PELVIS W CONTRAST [CT] Stat Exams 03/08/24 21:04 Taken CBC W DIFF Stat Lab 03/08/24 17:15 Completed CMP Stat Lab 03/08/24 17:15 Completed LIPASE Stat Lab 03/08/24 17:15 Completed Lactic Acid Stat Lab 03/08/24 19:36 Completed Lactic Acid Urgent Lab 03/08/24 17:30 Completed MAGNESIUM Stat Lab 03/08/24 17:15 Completed POCT GLUCOSE Stat Lab 03/08/24 17:09 Completed Medication Summary Generic Name Dose Route Start Last Admin Trade Name Matheus PRN Reason Stop Dose Admin Magnesium Sulfate/Dextrose 100 mls @ 100 mls/hr 03/08/24 18:45 03/08/24 20:01 Magnesium 1 Gm / 100 Ml D5w IV 03/08/24 20:44 100 mls/hr Q1H [place] Administration Potassium Chloride 20 meq in 100 mls @ 50 mls/hr 03/08/24 18:45 03/08/24 21:18 Potassium Chloride 20 Meq In Water 100ml IV 03/08/24 22:44 50 mls/hr Q2H [place] Administration Sodium Chloride 1,000 mls @ 125 mls/hr 03/08/24 19:15 03/08/24 19:23 Sodium Chloride 0.9% 1000 Ml IV 04/07/24 19:14 125 mls/hr .Q8H [place] Administration Discontinued Medications Generic Name Dose Route Start Last Admin Trade Name Matheus PRN Reason Stop Dose Admin Sodium Chloride 1,000 mls @ 999 mls/hr 03/08/24 17:19 03/08/24 18:30 Sodium Chloride 0.9% 1000 Ml IV 03/08/24 18:19 Infused .Q1H1M STA Infusion Sodium Chloride Confirm 03/08/24 17:22 Sodium Chloride 0.9% 1000 Ml Administered 03/08/24 17:23 Dose 1,000 mls @ ud .ROUTE .STK-MED ONE Ondansetron HCl 4 mg 03/08/24 17:19 03/08/24 17:24 Ondansetron Hcl 4 Mg/2 Ml Vial IV 03/08/24 17:20 4 mg STAT ONE Administration Ondansetron HCl Confirm 03/08/24 17:22 Ondansetron Hcl 4 Mg/2 Ml Vial Administered 03/08/24 17:23 Dose 4 mg .ROUTE .STK-MED ONE Oxycodone/Acetaminophen 1 tab 03/08/24 21:43 03/08/24 21:59 Oxycodone / Apap 10/325 Mg 1 Tablet PO 03/08/24 21:44 1 tab STAT STA Administration Oxycodone/Acetaminophen Confirm 03/08/24 21:58 Oxycodone / Apap 10/325 Mg 1 Tablet Administered 03/08/24 21:59 Dose 1 tab .ROUTE .STK-MED ONE Lab/Rad Data: Laboratory Result Diagrams 03/08/24 17:15 03/08/24 17:15 Laboratory Results 03/08/24 03/08/24 03/08/24 Range/Units Unknown 19:36 17:30 WBC (4.0-10.5) x10^3/uL RBC (4.1-5.4) x10^6/uL Hgb (12.0-16.0) g/dL Hct (35-47) % MCV (78-100) fL MCH (26-32) pg MCHC (32-36) g/dL RDW (11.5-14.0) % Plt Count (150-450) x10^3/uL MPV (7.5-11.0) fL Gran % (36.0-66.0) % Immature Gran % (Auto) (0.00-0.4) % Nucleat RBC Rel Count (0.00-0.1) % Eos # (Auto) (0-0.5) x10^3/uL Immature Gran # (Auto) (0.00-0.03) x10^3u/L Absolute Lymphs (auto) (1.0-4.6) x10^3/uL Absolute Monos (auto) (0.0-1.3) x10^3/uL Absolute Nucleated RBC (0.00-0.01) x10^3u/L Lymphocytes % (24.0-44.0) % Monocytes % (0.0-12.0) % Eosinophils % (0.00-5.0) % Basophils % (0.0-0.4) % Absolute Granulocytes (1.4-6.9) x10^3/uL Basophils # (0-0.4) x10^3/uL Sodium (135-145) mmol/L Potassium (3.5-5.1) mmol/L Chloride (98-107) mmol/L Carbon Dioxide (22-30) mmol/L Anion Gap (5-15) MEQ/L BUN (7-17) mg/dL Creatinine (0.52-1.04) mg/dL Estimated GFR ML/MIN Glucose (74-106) mg/dL POC Glucometer (74 to 106) mg/dL Lactic Acid 1.9 4.0 H (0.4-2.0) Calcium (8.4-10.2) mg/dL Magnesium (1.6-2.3) mg/dL Total Bilirubin (0.2-1.3) mg/dL AST (14-36) U/L ALT (0-35) U/L Alkaline Phosphatase (38-126) U/L Serum Total Protein (6.3-8.2) g/dL Albumin (3.5-5.0) g/dL Lipase (23-300) U/L Urine Color Yellow (Yellow) Urine Appearance Clear (Clear) Urine pH 6.0 (4.6-8.0) Ur Specific [place] >=1.030 A (1.005-1.030) Urine Protein Negative (Negative) Urine Glucose (UA) >=1000 A (Negative) mg/dL Urine Ketones Negative (Negative) Urine Blood Negative (Negative) Urine Nitrite Negative (Negative) Urine Bilirubin Negative (Negative) Urine Urobilinogen 0.2 (0.2) mg/dL Ur Leukocyte Esterase Negative (Negative) U Hyaline Cast (Auto) NONE SEEN (0-2) /LPF Urine Microscopic RBC 0-2 (0-5) /HPF Urine Microscopic WBC 0-2 (0-5) /HPF Ur Epithelial Cells None Seen (None Seen) /HPF Urine Bacteria None Seen (None Seen) /HPF Urine Culture Reflexed NO (NO) 03/08/24 03/08/24 03/08/24 Range/Units 17:15 17:15 17:09 WBC 12.9 H (4.0-10.5) x10^3/uL RBC 4.95 (4.1-5.4) x10^6/uL Hgb 14.4 (12.0-16.0) g/dL Hct 42.3 (35-47) % MCV 85.5 (78-100) fL MCH 29.1 (26-32) pg MCHC 34.0 (32-36) g/dL RDW 13.3 (11.5-14.0) % Plt Count 377 (150-450) x10^3/uL MPV 9.7 (7.5-11.0) fL Gran % 54.8 (36.0-66.0) % Immature Gran % (Auto) 0.6 H (0.00-0.4) % Nucleat RBC Rel Count 0.0 (0.00-0.1) % Eos # (Auto) 0.12 (0-0.5) x10^3/uL Immature Gran # (Auto) 0.08 H (0.00-0.03) x10^3u/L Absolute Lymphs (auto) 4.49 (1.0-4.6) x10^3/uL Absolute Monos (auto) 1.07 (0.0-1.3) x10^3/uL Absolute Nucleated RBC 0.00 (0.00-0.01) x10^3u/L Lymphocytes % 34.8 (24.0-44.0) % Monocytes % 8.3 (0.0-12.0) % Eosinophils % 0.9 (0.00-5.0) % Basophils % 0.6 (0.0-0.4) % Absolute Granulocytes 7.06 H (1.4-6.9) x10^3/uL Basophils # 0.08 (0-0.4) x10^3/uL Sodium 138 D (135-145) mmol/L Potassium 2.6 L* D (3.5-5.1) mmol/L Chloride 95 L (98-107) mmol/L Carbon Dioxide 29 (22-30) mmol/L Anion Gap 16.3 H (5-15) MEQ/L BUN 9 (7-17) mg/dL Creatinine 0.45 L (0.52-1.04) mg/dL Estimated GFR 116.4 ML/MIN Glucose 233 H (74-106) mg/dL POC Glucometer 243 H (74 to 106) mg/dL Lactic Acid (0.4-2.0) Calcium 10.4 H (8.4-10.2) mg/dL Magnesium 1.7 (1.6-2.3) mg/dL Total Bilirubin 0.40 (0.2-1.3) mg/dL AST 19 (14-36) U/L ALT 22 (0-35) U/L Alkaline Phosphatase 151 H (38-126) U/L Serum Total Protein 7.4 (6.3-8.2) g/dL Albumin 4.3 (3.5-5.0) g/dL Lipase 67 (23-300) U/L Urine Color (Yellow) Urine Appearance (Clear) Urine pH (4.6-8.0) Ur Specific [place] (1.005-1.030) Urine Protein (Negative) Urine Glucose (UA) (Negative) mg/dL Urine Ketones (Negative) Urine Blood (Negative) Urine Nitrite (Negative) Urine Bilirubin (Negative) Urine Urobilinogen (0.2) mg/dL Ur Leukocyte Esterase (Negative) U Hyaline Cast (Auto) (0-2) /LPF Urine Microscopic RBC (0-5) /HPF Urine Microscopic WBC (0-5) /HPF Ur Epithelial Cells (None Seen) /HPF Urine Bacteria (None Seen) /HPF Urine Culture Reflexed (NO) - Progress Progress: improved Progress Note: Patient requested transfer to [facility]. I spoke to Dr. Munoz hospitalist at [facility] who feels patient patient would be better served at a higher level of care. Patient may benefit from hepatology evaluation. Patient declined on this basis. 03/08/24 20:[address] Taylor hospitalist at [facility] who advises contacting him after CT abdomen pelvis with contrast was completed. 03/08/24 21:20 Case discussed with hospitalist Dr. Smith and elevator troubleshooter Dr. Weems. They feel patient does not need to be transferred. They feel that patient does not need hepatology and would benefit from a GI consultation. 03/08/24 22:58 49-year-old female presents to our emergency department as a referral from her primary care doctor. Patient complained of intractable nausea vomiting. Patient reports approximately 30 to 40 pound weight loss over the past 2 months. Patient reports mother recently of liver cancer. Laboratory workup reveals a hypokalemia of 2.6. Initial lactic acid was 4.0. IV fluids infused. Patient received magnesium and potassium replacement. In light of patient's worsening nausea and vomiting weight loss patient transferred to higher level of care. Plan of care discussed with patient. Patient agrees to transfer for further evaluation and treatment. Complexity problem addressed is moderate acute complicated. No critical care. Complexity of data reviewed and analyzed is extensive. Test ordered test reviewed results analyzed and correlated clinically with history and physical examination. Management discussed with consultants as per above. Risk of complication and or risk of morbidity/mortality of patient management is high. Patient requires transfer to higher level of care. Vital stable. Time spent to transfer patient is approximately 35 minutes. Plan of care established for shared decision making. No social determinants of health present impede follow-up. Portions of this note were created with voice recognition technology. There may be grammatical, spelling, punctuation or sound alike errors 03/09/24 01:22 Counseled pt/family regarding: lab results, diagnosis, rad results - Departure Departure Disposition: Transfer Clinical Impression: Hypokalemia, Nausea and vomiting, Hepatomegaly Condition: Stable Critical Care Time: No Referrals: SUPRIYA SANCHEZ DO [Primary Care Provider] - Follow up/PCP as directed
[2024-03-08] MEDS ORDERED: POTASSIUM CHLORIDE 20 mEq IN WATER 100ML 100 ML IV ONE ×2 (19:16→21:17)
[2024-03-08] MEDS ORDERED: Magnesium 1 Gm / 100 Ml D5W*** 100 ML IV ONE ×2 (19:16→19:59)
[2024-03-08] MEDS: POTASSIUM CHLORIDE 20 mEq IN WATER 100ML 20 MEQ/100 ML BAG IV SCH (19:23)
[2024-03-08] MEDS: Sodium Chloride 0.9% 1000 ML 1,000 ML IV SCH (19:23)
[2024-03-08] MEDS: Magnesium 1 Gm / 100 Ml D5W*** 100 ML IV SCH (19:23)
[2024-03-08] MEDS ORDERED: OXYCODONE-ACETAMINOPHEN 10-325 ONE (21:58)
[2024-03-08] MEDS: OXYCODONE-ACETAMINOPHEN 10-325 PO STA (21:59)
[2024-03-09 00:54] VITALS: RESP 24
[2024-03-09 01:12] VITALS: BP 131/80; PULSE 88
[2024-03-09 01:26] VITALS: O2SAT 98
--- NOTE | 2024-03-09 09:01 | XRAY ---
Indication: Right upper quadrant pain, nausea, and vomiting since December 2023. Multiple contiguous axial images obtained through the abdomen and pelvis using 80 cc Isovue 370 contrast. Comparison: October 08, 2022. Lung bases clear again with incidental tiny right base calcified granuloma. Heart not enlarged. Noncontrasted stomach and bowel loops appear nonobstructed with normal appearing appendix. Worsening diffuse fatty hepatomegaly up to 25.5 cm. Again cholecystectomy and hysterectomy. No free fluid/air. Remaining pancreas, spleen, adrenal glands, kidneys, ureters, and bladder are unremarkable. Again mild scattered aortoiliac calcifications. No AAA or pathologic retroperitoneal lymphadenopathy. Osseous structures intact again with L4-S1 fusion with beam artifact from hardware. Impression: 1. Worsening fatty hepatomegaly. 2. Again chronic findings including right base calcified granuloma, arteriosclerotic disease, and L4-S1 fusion. 3. Remaining CT abdomen/pelvis with contrast exam continues to be negative.
== END 2024-03-09 01:50 | disposition short-term general hospital (02) ==
LOC: ED 16:25
DX: E87.6 Hypokalemia (principal); R11.2 Nausea with vomiting, unspecified; R16.0 Hepatomegaly, not elsewhere classified; R63.4 Abnormal weight loss; R10.9 Unspecified abdominal pain; E78.5 Hyperlipidemia, unspecified; I10 Essential (primary) hypertension; E11.42 Type 2 diabetes mellitus with diabetic polyneuropathy; Z79.4 Long term (current) use of insulin; Z79.02 Long term (current) use of antithrombotics/antiplatelets; Z79.899 Other long term (current) drug therapy; Z72.0 Tobacco use
CPT/HCPCS: 36000; 36415; 74177; 80053; 81001; 82947; 83605; 83690; 83735; 85025; 93005; 93041; 96360; 96374; 99285; J2405; J3475; J3480; A9270-GY

== ENCOUNTER 2025-01-08 23:30 | Emergency (ER) | payer MEDICARE ==
[2025-01-09 00:46] VITALS: BP 173/74; PULSE 93; RESP 18; TEMP 98.5; O2SAT 99
--- NOTE | 2025-01-09 00:51 | ERPHSYRPT ---
- History of Present Illness Source: patient Exam Limitations: no limitations Patient Subjective Stated Complaint: PT. STATES, "I HAD OPEN HEART SURGERY AND VEIN HARVESTING FROM LEFT UPPER LEG IN NOVEMBER. MY LEG WOUND ISN'T HEALING WELL AND IT GOT EVEN BIGGER TODAY." Triage Nursing Assessment: PT. AMBULATED TO ROOM WITHOUT DIFF, A&OX3, SKIN P/W/D, RESP EVEN UNLABORED, HEALING INCISION ON LEFT UPPER THIGH THAT HAS DEHISSED ON INFERIOR END, SEROSANG DRAINAGE NOTED ON DRESSING. Physician History: Patient has a chronic wound. It is about 4 weeks old. She is going to make sure is not infected. The wound dehisced a little bit it is a harvest site for venous graft. She is not having fever chills or any systemic symptoms. Allergies/Adverse Reactions: adhesive Allergy (Severe, Verified 03/08/24 17:02) states adhesive from medication patches clonazepam [From Klonopin] Allergy (Severe, Verified 03/08/24 17:02) Sulfa (Sulfonamide Antibiotics) Adverse Reaction (Severe, Verified 03/08/24 17:02) throws her into a lupus flare up tizanidine HCl [From Zanaflex] Adverse Reaction (Verified 03/08/24 17:02) "weird sensation in legs" restless legs Home Medications: Gabapentin [Neurontin] 600 mg PO TID 07/04/15 [History] Insulin Lispro [Humalog] 60 units SQ AC 07/04/15 [History] Nitroglycerin 0.4 mg Tablet [Nitrostat 0.4 MG Tablet] 0.4 mg SL Q5MIN PRN MR X 3 PRN 07/04/15 [History] Omeprazole 40 mg PO DAILY 07/04/15 [History] dilTIAZem HCL [Diltiazem HCl] 120 mg PO DAILY 07/04/15 [History] Oxycodone HCl/Acetaminophen [Percocet 10-325 mg Tablet] 1 each PO Q4HPRN PRN 05/05/16 [History] Baclofen 20 mg PO QID 11/25/16 [History] Insulin Degludec [Tresiba Flextouch U-200] 160 unit SQ DAILY 07/09/17 [History] Atorvastatin Calcium 80 mg PO HS 07/17/20 [History] Clopidogrel Bisulfate [Clopidogrel] 75 mg PO DAILY 07/17/20 [History] Fluoxetine HCl 60 mg PO DAILY 07/17/20 [History] Hydroxychloroquine Sulfate 200 mg PO BID 11/12/21 [History] Metoprolol Tartrate 25 mg [Lopressor 25MG Tab] 50 mg PO BID 11/12/21 [History] Albuterol 8 gm Mdi Hfa [Ventolin Hfa MDI] 8 gm IH Q4H PRN 10/08/22 [History] Famotidine 80 mg PO QHS 10/08/22 [History] Budesonide/Formoterol Fumarate [Budesonide-Formoterol 160-4.5] 2 puff IH BID 01/12/24 [History] Carboxymethylcellulose Sodium [Artificial Tears] 2 drops OP UD PRN 01/12/24 [History] Duloxetine HCl [Cymbalta] 60 mg PO HS 01/12/24 [History] Fenofibrate 48 mg PO HS 01/12/24 [History] Ropinirole HCl 1 mg PO HS 01/12/24 [History] Tiotropium [place] [Spiriva Handihaler] 1 puff IH DAILY 01/12/24 [History] Hx Tetanus, Diphtheria Vaccination/Date Given: Yes Hx Influenza Vaccination/Date Given: No Hx Pneumococcal Vaccination/Date Given: No Immunizations Up to Date: No Travel Risk - International Travel Have you traveled outside of the country in past 3 weeks: No - Emerging Infectious Disease Are you exhibiting symptoms associated with any current EIDs: No - Review of Systems Constitutional: No Symptoms Eyes: No Symptoms All Other Systems: Reviewed and Negative - Past Medical History Pertinent Past Medical History: Yes Neurological History: Peripheral Neuropathy ENT History: No Pertinent History Cardiac History: Angina, Coronary Artery Disease, High Cholesterol, Hypertension, Myocardial Infarction ([place]) Respiratory History: Bronchitis Endocrine Medical History: Diabetes Type II, Hypothyroidism Musculoskeletal History: Degenerative Disk Disease, Fibromyalgia, Osteoarthritis GI Medical History: GERD, Hernia, Irritable Bowel, Polyps, Other History: No Pertinent History Psycho-Social History: Anxiety, Depression Female Reproductive Disorders: Other Other Medical History: lupus, PCOS, calderón's esophagus, kyra, fasciculation, hiatal hernia. dilated bile duct - Past Surgical History Past Surgical History: Yes Neuro Surgical History: Other Cardiac: Cardiac Catheterization, Cardiac Stent Respiratory: No Pertinent History Gastrointestinal: Cholecystectomy Genitourinary: No Pertinent History Musculoskeletal: Other Female Surgical History: Section, Hysterectomy, Tubal Ligation, Other Other Surgical History: disc fusion c6-c7, left knee arthroscopy, lymph node biopsy, polyps removed from colon, +HPV, lumbar laminectomy, posterior discectomy - rods, pins, bone graft L4-S1 - Female History Hx Last Menstrual Period: n/a Hx Now: No - Social History Smoking Status: Never smoker Exposure to second hand smoke: No Drug Use: none - Social Determinants of Health Will the patient participate in the screening: Declined to provide - Nursing Vital Signs Nursing Vital Signs: Initial Vital Signs Temperature 98.5 F 01/09/25 00:35 Pulse Rate 93 H 01/09/25 00:35 Respiratory Rate 18 01/09/25 00:35 Blood Pressure 173/74 01/09/25 00:35 O2 Sat by Pulse Oximetry 99 01/09/25 00:35 Pain Scale Pain Intensity 0 - Physical Exam Skin Exam: other (Wound on the left inner thigh. The sutures dehisced and the wound is gaping. It is epithelialized there is no evidence of infection. It looks like it is healing fine.) SpO2: 99 - Course Nursing assessment & vital signs reviewed: Yes - Progress Progress Note: Patient was stable throughout stay. The wound does not require any further attention. Is just going to have to heal. There is no evidence of infection which is what the patient was wanting to rule out. 01/09/25 00:[address] La - Departure Departure Disposition: Home Clinical Impression: Encounter for wound re-check Condition: Stable Critical Care Time: No Referrals: SUPRIYA SANCHEZ DO [Primary Care Provider] - Follow up/PCP as directed
== END 2025-01-09 01:06 | disposition home or self-care (01) ==
LOC: ED 23:30
DX: Z48.00 Encounter for change or removal of nonsurgical wound dressing (principal); E78.5 Hyperlipidemia, unspecified; I10 Essential (primary) hypertension; E11.42 Type 2 diabetes mellitus with diabetic polyneuropathy; Z79.4 Long term (current) use of insulin; Z79.02 Long term (current) use of antithrombotics/antiplatelets; Z79.899 Other long term (current) drug therapy
CPT/HCPCS: 99282